=== PATIENT | female | born 1990 | race Caucasian/White ===

== ENCOUNTER → 2020-09-28 11:04 | Outpatient (BNVA) | payer MEDICAID, SELFPAY | PROVIDERS: Family Provider Family Medicine; PCP Family Medicine; Visit Provider Family Medicine | DX: Z13.6 Encounter for screening for cardiovascular disorders (principal); N92.6 Irregular menstruation, unspecified | CPT/HCPCS: 80053; 81025; 84443; 85025 ==

== ENCOUNTER → 2020-09-29 12:07 | Outpatient (BNVA) | payer MEDICAID, SELFPAY | PROVIDERS: Family Provider Family Medicine; PCP Family Medicine; Visit Provider Family Medicine | DX: N92.6 Irregular menstruation, unspecified (principal); Z13.6 Encounter for screening for cardiovascular disorders | CPT/HCPCS: 84436 ==

== ENCOUNTER → 2020-10-18 11:50 | Outpatient (BNVA) | payer MEDICAID, SELFPAY | PROVIDERS: Family Provider Family Medicine; PCP Family Medicine; Visit Provider Family Medicine | DX: N92.6 Irregular menstruation, unspecified (principal) | CPT/HCPCS: 84436 ==

== ENCOUNTER → 2020-10-19 13:20 | Outpatient (BNVA) | payer MEDICAID, SELFPAY | PROVIDERS: Family Provider Family Medicine; PCP Family Medicine; Visit Provider Family Medicine | DX: N92.6 Irregular menstruation, unspecified (principal) | CPT/HCPCS: 84146 ==

== ENCOUNTER 2020-10-25 12:53 | Outpatient (CLI) | payer MEDICAID, SELFPAY ==
--- NOTE | 2020-10-25 13:00 | XR_ITS ---
WS: [id number] Exam: XR chest 2V* [id number] Date/Time of Exam: 10/25/2020 1:03 PM Reason For Exam: unexplained weight loss Comparison 02/17/2014. Findings: The lungs are clear and fully expanded. Costophrenic angles are sharp. No infiltrates. Bronchovascula r relief appears normal. Cardiac silhouette is unremarkable. Bony elements are intact. XR/XR chest 2V* [id number] IMPRESSION: Unremarkable chest radiograph.
== END 2020-10-25 12:54 | disposition home or self-care (01) ==
PROVIDERS: PCP Family Medicine; Visit Provider Family Medicine
DX: R63.4 Abnormal weight loss (principal)
CPT/HCPCS: 71046

== ENCOUNTER 2022-11-08 21:57 | Emergency (ER) | payer MEDICAID, SELFPAY ==
[2022-11-08 22:04] VITALS: BP 109/80; PULSE 99; RESP 16; TEMP 36.6; O2SAT 100; BMI 15.6
[2022-11-08 22:08] VITALS: BP 121/85; PULSE 103; RESP 18; O2SAT 100
--- NOTE | 2022-11-08 22:18 | XRR_ITS ---
PROCEDURE INFORMATION: Exam: XR Chest Exam date and time: 11/08/2022 10:27 PM Age: 31 years old Clinical indication: Pain; Chest pressure; Additional info: Cp TECHNIQUE: Imaging protocol: Radiologic exam of the chest. Views: 1 view. COMPARISON: CR XR chest 2V* [id number] 10/25/2020 1:07 PM FINDINGS: Lungs: Stable hyperaerated lungs consistent with deep inspiratory effort vs reactive airway disease vs severe COPD . Pleural spaces: Unremarkable. No pleural effusion. No pneumothorax. Heart/Mediastinum: Unremarkable. No cardiomegaly. Bones/joints: Unremarkable. XR/XR chest 1V portable [id number] IMPRESSION: Stable hyperaerated lungs consistent with deep inspiratory effort vs reactive airway disease vs severe COPD .
--- NOTE | 2022-11-08 22:20 | ECG_ITS ---
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 Measurements Intervals [place] Rate: 92 P: 84 [place]: 161 QRS: 83 QRSD: 86 T: 71 QT: 359 QTc: 444 Interpretive Statements SINUS RHYTHM MODERATE T-WAVE ABNORMALITY, CONSIDER ANTERIOR ISCHEMIA [-0.1+ mV T-WAVE IN V3/V4] No previous ECG available for comparison Electronically Signed On 11-09-2022 11:58:41 CDT by Miki Clark M.D. [id number]
[2022-11-08] MEDS: LORazepam 2 mg/mL INJ 1 mL 1 MG IVP (22:35)
--- NOTE | 2022-11-08 22:48 | W.ED.SOB ---
HPI - SOB/Dyspnea General: Chief Complaint: Shortness of Breath/Dyspnea Stated Complaint: SOB Time Seen by Provider: 11/08/22 22:04 Source: patient Mode of arrival: ambulatory Limitations: no limitations History of Present Illness: HPI Narrative: 31-year-old female has a history of substance abuse along with alcohol abuse. States that she has had difficulty breathing she states for years she states that it got much worse tonight states she feels like she cannot get a breath and having chest pain she is very anxious here and tearful and appears to be having anxiety attack she denies any fever denies any cough denies any worsening proving factors. Associated symptoms: Reports chest pain; Deny abdominal pain, fever(s), nausea or vomiting Review of Systems Const: Denies: fever(s), chills or body aches Eyes: Denies: blurry vision or eye discomfort ENMT: Denies: throat pain or dental pain Card: Reports: chest pain Resp: Reports: dyspnea GI: Denies: abdominal pain, nausea, vomiting or diarrhea : Denies: dysuria Musc: Denies: neck pain or back pain Skin/Breast: Denies: rash Neuro: Denies: headache(s) PFSH ED PFSH: Medical History Depression PTSD (post-traumatic stress disorder) Surgical History No pertinent past surgical history Family History Other Hypertension Seizure Social History Smoking and tobacco status: current every day smoker cigarettes Packs smoked per day: 1 Alcohol intake: current Alcohol intake frequency: 3 or more drinks per day Alcohol type: beer Substance/Drug Use: current Substance/Drug use frequency: daily Physical Exam Const: COMMON NORMALS: patient oriented x3 GENERAL APPEARANCE: anxious HENMT: COMMON NORMALS: normocephalic and atraumatic HEAD & SCALP: normocephalic and atraumatic Eye: COMMON NORMALS: Equal, round and reactive pupils present and EOMs intact bilaterally PUPIL: Yes Equal, round and reactive pupils present Neck/C-Spine: COMMON NORMALS: full ROM and supple Chest: COMMONS NORMALS: normal inspection of the chest and normal palpation of entire chest wall Resp: COMMON NORMALS: normal respiratory effort, No retractions, No use of accessory muscles and clear to auscultation bilaterally AUSCULTATION: clear to auscultation bilaterally Cardio: COMMON NORMALS: regular rhythm and No murmurs present (Cardio) RATE: tachycardic RHYTHM: regular rhythm GI: COMMON NORMALS: Normal to inspection, nondistended, normoactive bowel sounds present, Soft to palpation, non-tender and no masses PALPATION: Yes Soft to palpation Extremity: COMMON NORMALS: normal to inspection and full ROM Neuro: COMMON NORMALS: patient oriented x3, moves all extremities and no focal motor deficits Psych: COMMON NORMALS: mental status grossly normal, Normal thought process present and cooperative THOUGHT PROCESS: Normal thought process present Skin: COMMON NORMALS: no rashes or lesions noted and no wounds GENERAL SKIN EXAM: no rashes or lesions noted Course Vital Signs: Vital signs: Vital Signs Temperature 97.9 F 11/08/22 22:04 Pulse Rate 109 H 11/08/22 23:08 Respiratory Rate 16 11/08/22 23:08 Blood Pressure 100/81 11/08/22 23:08 Pulse Oximetry 94 11/08/22 23:08 Oxygen Delivery Me thod Room Air 11/08/22 22:08 MDM - SOB/Dyspnea Medical Decision Making Patient presents here with some dyspnea likely anxiety CT does show slight pneumonia her white count is normal she is not hypoxic here she feels improved after Ativan she is intoxicated as well does drink daily we will start her on doxycycline she has no signs of acute coronary event her troponins are negative she is to follow-up with PCP and return if worsening she understands agrees to plan. Medical Records I reviewed the patient's medical records. Lab Data I reviewed the patient's lab results. 11/08/22 22:24 11/08/22 22:24 Labs/Radiology: Radiology Impressions Chest X-Ray 11/08/22 22:18 IMPRESSION: Stable hyperaerated lungs consistent with deep inspiratory effort vs reactive airway disease vs severe COPD . Chest CTA 11/08/22 23:06 IMPRESSION: 1. Moderate to severe hyperaerated lungs consistent with asthma and/or COPD. 2. Mild bilateral airspace disease with ground-glass opacities bilaterally involving the right upper lobe and to lesser extent the left upper lobe most consistent with mild bilateral upper lobe infectious pneumonia versus allergic pneumonia, [id number]-[id number]-barv-left. 3. No pulmonary embolus or aortic dissection. Laboratory Results WBC 8.7 10^3/uL (4.0-10.0) 11/08/22 22: RBC 2.89 10^6/uL (4.1-5.3) L 11/08/22 22: Hgb 11.1 g/dL (11.5-15.3) L 11/08/22 22: Hct 32.0 % (37.0-47.0) L 11/08/22 22: MCV 110.7 fl (81-99) H 11/08/22 22: MCH 38.4 pg (28.0-34.0) H 11/08/22: MCHC 34.7 g/dL (30.0-36.0) 11/08/22: RDW 15.0 % (12.1-15.1) 11/08/22: Plt Count 313 10^3/cmm (130-400) 11/08/22 22: MPV 9.4 fL (7.4-10.4) 11/08/22: Neut % (Auto) 50.7 % 11/08/22: Lymph % (Auto) 38.4 % 11/08/22 22: Gove % (Auto) 10.4 % 11/08/22: Eos % (Auto) 0.0 % 11/08/22: Baso % (Auto) 0.2 % 11/08/22: Neut # (Auto) 4.39 10^3/uL (1.8-7.7) 11/08/22: Lymph # (Auto) 3.3 10^3/uL (0.8-4.8) 11/08/22: Gove # (Auto) 0.9 10^3/uL (0.2-0.9) 11/08/22 22: Eos # (Auto) 0.0 10^3/uL (0.0-0.8) 11/08/22: Baso # (Auto) 0.0 10^3/uL (0.0-0.1) 05/11/23 22:24 Nucleated RBC % (auto) 0 % 11/08/22 22:24 Nucleated RBCs # 0.0 /100WBC 11/08/22 22:24 D-Dimer 1.03 ug/mIFEU (0-0.59) H 11/08/22 22:24 Sodium 136 mmol/L (136-145) 11/08/22 22:24 Potassium 3.3 mmol/L (3.5-5.1) L 11/08/22 22:24 Chloride 93 mmol/L (98-107) L 11/08/22 22:24 Carbon Dioxide 26 mmol/L (22-29) 11/08/22 22:24 Anion Gap 20.3 (5-19) H 11/08/22 22:24 BUN 1 mg/dL (6-20) L 11/08/22 22:24 Creatinine 0.4 mg/dL (0.5-0.9) L 11/08/22 22:24 GFR Calculation 183.8 mL/min (90-130) H 11/08/22 22:24 Glucose 101 mg/dL (65-115) 11/08/22 22:24 Calculated Osmolality 278 mOsm/kg (285-295) L 11/08/22 22:24 Calcium 8.1 mg/dL (8.5-10.5) L 11/08/22 22:24 Total Bilirubin 0.4 mg/dL (0.15-1.2) 11/08/22 22:24 AST 261 U/L (0-32) H 11/08/22 22:24 ALT 53 U/L (0-33) H 11/08/22 22:24 Alkaline Phosphatase 338 U/L (35-105) H 11/08/22 22:24 Troponin T Baseline 6 ng/L (0-10) 11/08/22 22:24 NT-Pro-B Natriuret Pep 44 pg/mL (0-125) 11/08/22 22:24 Total Protein 7.1 g/dL (6.6-8.7) 11/08/22 22:24 Albumin 3.2 g/dL (3.5-5.2) L 11/08/22 22:24 Globulin 3.9 g/dL (1.3-4.6) 05/11/23 22:24 HCG, Qual Negative (Negative) 11/08/22 22:24 Ethyl Alcohol 398 mg/dL (0-10) H* 11/08/22 22:24 EKG Data EKG 1: I personally reviewed and interpreted this EKG as follows: EKG Interpretation Date: 11/08/22 EKG interpretation time: 22:18 Interpretation: nsr hr [address] or t wave abnormalities qrs 86 qtc 408 Discharge Plan Discharge Patient Disposition: Home Clinical Impression: Pneumonia Condition: Stable Prescriptions: New doxycycline hyclate 100 mg tablet 100 mg PO BID 7 Days Qty: 14 0RF Discharge Orders: Discharge ED (Routine); Ordered 11/09/22 Ordered By: Rose Murrieta Referrals: Mallorie Syed DO [Primary Care Provider] - 1-3 days Discharge Diet: Advance as tolerated Discharge Activity: Resume usual activity Patient Instructions: Pneumonia (ED) Coding Level of Care Code ED Agency Sales Development Associate for Thi Chaney
[2022-11-08 22:54] LABS: Basophils % 0.2 %; Hemoglobin 11.1 g/dL (11.5-15.3); Lymphocytes # 3.3 10^3/uL (0.8-4.8); Lymphocytes % 38.4 %; Mean Corpuscular HGB Conc 34.7 g/dL (30.0-36.0); Mean Corpuscular Hemoglobin 38.4 pg (28.0-34.0); Mean Corpuscular Volume 110.7 fl (81-99); Mean Platelet Volume 9.4 fL (7.4-10.4); Monocytes # 0.9 10^3/uL (0.2-0.9); Monocytes % 10.4 %; Neutrophils # 4.39 10^3/uL (1.8-7.7); Neutrophils % 50.7 %; Nucleated Red Blood Cells % 0 %; Platelet Count 313 10^3/cmm (130-400); Red Blood Count 2.89 10^6/uL (4.1-5.3); White Blood Count 8.7 10^3/uL (4.0-10.0)
[2022-11-08 23:03] LABS: D Dimer 1.03 ug/mIFEU (0-0.59)
--- NOTE | 2022-11-08 23:06 | CTR_ITS ---
PROCEDURE INFORMATION: Exam: CTA Chest With Contrast Exam date and time: 11/08/2022 11:35 PM Age: 31 years old Clinical indication: Shortness of breath; Patient HX: Elevated d-dimer; Additional info: SOB TECHNIQUE: Imaging protocol: Computed tomographic angiography of the chest with contrast. 3D rendering (Not supervised by radiologist): MIP and/or 3D reconstructed images were created by the technologist. Radiation optimization: All CT scans at this facility use at least one of these dose optimization techniques: automated exposure control; mA and/or kV adjustment per patient size (includes targeted exams where dose is matched to clinical indication); or iterative reconstruction. Contrast material: OMNI 350; Contrast volume: 45 ml; Contrast route: INTRAVENOUS (IV); REPORTING DATA: Count of CT and Cardiac NM exams in prior 12 months: This patient has received 0 known CTs and 0 known cardiac nuclear medicine studies in the 12 months prior to the current study. COMPARISON: CR (CHEST, ) 11/08/2022 10:27 PM RADIATION DOSE METRICS: Total DLP (mGy-cm): 119.53 FINDINGS: Pulmonary arteries: No pulmonary embolus or aortic dissection. Aorta: See Pulmonary arteries finding. Lungs: Moderate to severe hyperaerated lungs consistent with asthma and or COPD. Mild bilateral airspace disease with ground-glass opacities bilaterally involving the right upper lobe and to lesser extent the left upper lobe most consistent with mild bilateral upper lobe infectious pneumonia versus allergic pneumonia, jstwd-vawiovy-aapq-left. Pleural spaces: Unremarkable. No pneumothorax. No pleural effusion. Heart: Unremarkable. No cardiomegaly. No pericardial effusion. Lymph nodes: Unremarkable. No enlarged lymph nodes. Bones/joints: Unremarkable. No acute fracture. Soft tissues: Unremarkable. Other findings: Examination is limited secondary to motion artifact. CT/CT angio chest PE protcl [id number] IMPRESSION: 1. Moderate to severe hyperaerated lungs consistent with asthma and/or COPD. 2. Mild bilateral airspace disease with ground-glass opacities bilaterally involving the right upper lobe and to lesser extent the left upper lobe most consistent with mild bilateral upper lobe infectious pneumonia versus allergic pneumonia, woeym-deepluc-iiww-left. 3. No pulmonary embolus or aortic dissection.
[2022-11-08 23:08] VITALS: BP 100/81; PULSE 109; RESP 16; O2SAT 94
[2022-11-08 23:08] LABS: Troponin(5th) Baseline 6 ng/L (0-10)
[2022-11-08 23:16] LABS: Alanine Aminotransferase 53 U/L (0-33); Albumin Level 3.2 g/dL (3.5-5.2); Alkaline Phosphatase 338 U/L (35-105); Anion Gap 20.3 (5-19); Aspartate Amino Transferase 261 U/L (0-32); Calcium 8.1 mg/dL (8.5-10.5); Carbon Dioxide 26 mmol/L (22-29); Chloride 93 mmol/L (98-107); Globulin 3.9 g/dL (1.3-4.6); Glomerular Filtration Rate 183.8 mL/min (90-130); Glucose 101 mg/dL (65-115); NT Pro B Type Natriuretic Pept 44 pg/mL (0-125); Potassium 3.3 mmol/L (3.5-5.1); Sodium 136 mmol/L (136-145); Total Bilirubin 0.4 mg/dL (0.15-1.2); Total Protein 7.1 g/dL (6.6-8.7)
[2022-11-08 23:21] LABS: Blood Urea Nitrogen 1 mg/dL (6-20); Osmolality Calculated 278 mOsm/kg (285-295)
[2022-11-08 23:23] LABS: Alcohol Level 398 mg/dL (0-10)
[2022-11-08 23:24] LABS: HCG, Serum Qual Negative (Negative)
[2022-11-08] MEDS: iohexol 350 mg/mL 500 mL Btl (per mL) IV (23:28)
[2022-11-09] MEDS: doxycycline 100 mg Tablet PO (00:16)
[2022-11-09 01:26] VITALS: BP 99/78; PULSE 101; RESP 16; O2SAT 98
== END 2022-11-09 00:23 | disposition home or self-care (01) ==
PROVIDERS: Emergency Provider Emergency Medicine; PCP Family Medicine
DX: J18.9 Pneumonia, unspecified organism (principal); F17.210 Nicotine dependence, cigarettes, uncomplicated
CPT/HCPCS: 71045; 71275; 80053; 80307; 83880; 84484; 84703; 85025; 85378; 93005; 96374; 99285; J2060; Q9967

== ENCOUNTER 2023-01-08 15:54 | Emergency (ER) | payer MEDICAID, SELFPAY ==
[2023-01-08 16:08] VITALS: BP 106/70; PULSE 88; RESP 16; TEMP 36.5; O2SAT 99; BMI 15.6
--- NOTE | 2023-01-08 16:12 | ECG_ITS ---
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 Measurements Intervals [place] Rate: 116 P: 76 SD: 123 QRS: 85 QRSD: 89 T: 55 QT: 314 QTc: 436 Interpretive Statements SINUS TACHYCARDIA MODERATE ST DEPRESSION [0.05+ mV ST DEPRESSION] Compared to ECG 11/08/2022 22:18:26 ST (T wave) deviation now present Sinus rhythm no longer present T-wave abnormality no longer present Possible ischemia no longer present Electronically Signed On 01-08-2023 17:17:35 CDT by Shae Mccall M.D. [id number]
--- NOTE | 2023-01-08 16:29 | XRR_ITS ---
PROCEDURE INFORMATION: Exam: XR Chest Exam date and time: 01/08/2023 4:52 PM Age: 32 years old Clinical indication: Pain; Angina pectoris; Prior surgery; Surgery date: 6+ months; Surgery type: Not specified; Additional info: Chest pain TECHNIQUE: Imaging protocol: Radiologic exam of the chest. Views: 1 view. COMPARISON: CR (CHEST, ) 11/08/2022 10:27 PM FINDINGS: Lungs: The lungs are clear and hyperinflated. Emphysema is not excluded. No peribronchial cuffing. No consolidation. Pleural spaces: Unremarkable. No pleural effusion. No pneumothorax. Heart/Mediastinum: Unremarkable. No cardiomegaly. Bones/joints: Unremarkable. XR/XR chest 1V portable [id number] IMPRESSION: No acute findings.
--- NOTE | 2023-01-08 16:39 | ECG_ITS ---
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 Measurements Intervals [place] Rate: 125 P: 83 ID: 120 QRS: 92 QRSD: 90 T: 24 QT: 336 QTc: 485 Interpretive Statements SINUS TACHYCARDIA BORDERLINE RIGHT AXIS DEVIATION [QRS AXIS > 90] MINIMAL ST DEPRESSION [0.025+ mV ST DEPRESSION] ABNORMAL RHYTHM ECG Compared to ECG 01/08/2023 16:18:36 No significant changes Electronically Signed On 01-08-2023 17:17:29 CDT by Shae Mccall M.D. [id number]
[2023-01-08] MEDS: sodium chloride 0.9% 1,000 ML 999 ML IV (16:46)
[2023-01-08 16:56] LABS: Basophils % 0.1 %; Hematocrit 33.8 % (37.0-47.0); Hemoglobin 11.7 g/dL (11.5-15.3); Lymphocytes # 1.3 10^3/uL (0.8-4.8); Lymphocytes % 10.7 %; Mean Corpuscular HGB Conc 34.6 g/dL (30.0-36.0); Mean Corpuscular Hemoglobin 35.3 pg (28.0-34.0); Mean Corpuscular Volume 102.1 fl (81-99); Mean Platelet Volume 10.4 fL (7.4-10.4); Monocytes % 8.6 %; Neutrophils % 80.3 %; Nucleated Red Blood Cells % 0 %; Platelet Count 232 10^3/cmm (130-400); Red Blood Count 3.31 10^6/uL (4.1-5.3); Red Cell Distribution Width 12.4 % (12.1-15.1)
--- NOTE | 2023-01-08 17:04 | ED_ITS ---
HPI - Chest Pain General: Chief Complaint: Chest Pain Stated Complaint: Sánchez sent for cp, weakness, n/v, everything Time Seen by Provider: 01/08/23 16:26 History of Present Illness: Patient presents to the ER with multiple complaints. All of these complaints have been going on for about a year but have gotten worse in the last 4 days. Patient complains of chest pain, nausea vomiting, weakness, indigestion, cough, fever, shortness of breath, hot flashes, patient says there are no rhyme or reason to any of these symptoms they just come and go. Patient says she has not been able to eat or drink anything for the last 3 to 4 days due to the nausea vomiting. Review of Systems General: Reports: 10 or more systems reviewed and unremarkable except in HPI and below PFSH ED PFSH: Medical History Depression PTSD (post-traumatic stress disorder) Surgical History No pertinent past surgical history Family History Other Hypertension Seizure Social History Smoking and tobacco status: current every day smoker cigarettes Packs smoked per day: 1 Alcohol intake: current Alcohol intake frequency: 3 or more drinks per day Alcohol type: beer Substance/Drug Use: current Substance/Drug use frequency: daily Physical Exam Const: COMMON NORMALS: no acute distress, average body habitus, patient oriented x3, no limitations, healthy appearing, alert and well nourished HENMT: COMMON NORMALS: normocephalic, hearing grossly normal bilaterally, external ears normal, Normal external nose present and moist oral mucous membranes HEAD & SCALP: normocephalic NOSE: Normal external nose present EXTERNAL EAR: Yes external ears normal Eye: COMMON NORMALS: Equal, round and reactive pupils present, EOMs intact bilaterally, conjunctivae normal and no scleral icterus CONJUNCTIVA: Yes conjunctivae normal PUPIL: Yes Equal, round and reactive pupils present Neck/C-Spine: COMMON NORMALS: full ROM, no lymphadenopathy, supple, no meningeal signs, no JVD and Thyroid normal THYROID: Thyroid normal Lymph: LYMPHATIC: no lymphadenopathy noted Chest: COMMONS NORMALS: normal inspection of the chest and normal palpation of entire chest wall Resp: COMMON NORMALS: normal respiratory effort, No retractions, No use of accessory muscles and clear to auscultation bilaterally AUSCULTATION: clear to auscultation bilaterally Cardio: COMMON NORMALS: no JVD, regular rhythm, S1 normal heart sound present, S2 normal heart sound present, No gallops present (Cardio), No clicks present (Cardio), No murmurs present (Cardio) and No rub (Cardio); negative for regular rate (Tachycardia ) RATE: abnormal rate (Tachycardia ) RHYTHM: regular rhythm HEART SOUNDS: S1 normal heart sound present and S2 normal heart sound present GI: COMMON NORMALS: Normal to inspection, nondistended, normoactive bowel sounds present, Soft to palpation, non-tender, No hepatosplenomegaly present and no masses PALPATION: Yes Soft to palpation and Yes No hepatosplenomegaly present : COMMON NORMALS: Yes no CVA tenderness BLADDER/KIDNEY EXAM: Yes no CVA tenderness Back/Pelvis: COMMON NORMALS: no CVA tenderness Neuro: COMMON NORMALS: patient oriented x3 SENSORIUM/ORIENTATION: Yes alert MENINGEAL SIGNS: Yes no meningeal signs Course Vital Signs: Vital signs: Vital Signs Temperature 97.7 F 01/08/23 16:08 Pulse Rate 98 01/08/23 20:14 Respiratory Rate 15 01/08/23 20:14 Blood Pressure 109/79 01/08/23 20:14 Pulse Oximetry 98 01/08/23 20:14 Oxygen Delivery Me thod Room Air 01/08/23 20:14 MDM - Chest Pain Medical Decision Making Patient presents to the ER with a multitude of symptoms including chest pain nausea vomiting weakness indigestion cough fever shortness of breath hot flashes abdominal pain. All of these been going on for over a year but is gotten worse over the last 4 days. Patient was initially tachycardic upon arrival patient was given 1 L of normal saline while waiting for lab work and imaging to come back. Lab work did show a white count of 12,000, sodium of 129, UA which was remarkable for urinary tract infection. Chest x-ray which was benign, abdomen pelvis CT with contrast showed fluid distended gallbladder with mild wall th ickening recommended ultrasound, abdomen ultrasound showed fluid distended gallbladder with sludge and wall thickening suspicious for acute cholecystitis mild ductal dilation of the common bile duct with no intraductal filling defect. These findings was explained to the patient that they all slightly point to the gallbladder as well as her elevated liver enzymes and total bilirubin. Patient was given the option to be admitted inpatient to have an MRCP in the morning and talk with the surgeon about possible cholecystectomy. Patient elected not to do this and elected to go home and follow-up with her PCP in the morning. Patient states she had things to do when people talk to before she could potentially go to surgery. Patient be discharged home and should follow-up with her PCP in the morning to talk about getting an MRCP and or referral to a surgeon. Differential Diagnosis Unlikely acute massive pulmonary embolism, acute respiratory failure, acute myocardial infarction, cardiac arrest or sudden cardiac Medical Records I reviewed the patient's medical records. Lab Data I reviewed the patient's lab results. 01/08/23 16:43 01/08/23 16:43 Radiology Impressions Chest X-Ray 01/08/23 16:29 IMPRESSION: No acute findings. Abdomen/Pelvis CT 01/08/23 17:25 IMPRESSION: 1. Fluid distended gallbladder with mild wall thickening. This could represent acute cholecystitis. Follow-up with ultrasound is recommended. 2. Right middle lobe consolidation is most likely atelectasis. COMMENTS: Consistent with the [employer]'s Incidental Findings Committee white paper (J Am Wilbur Radiol 2018): Any incidental renal lesion less than 1 cm or classified as too small to characterize, or any incidental cystic renal lesion characterized as simple-appearing, is likely benign. No follow-up imaging is recommended for these lesions per consensus recommendations based on imaging criteria. Abdomen Ultrasound 01/08/23 19:09 IMPRESSION: 1. Fluid distended gallbladder with sludge and wall thickening. This is suspicious for acute cholecystitis. 2. Mild dilatation of the common bile duct with no intraductal filling defect visualized. If there is clinical/laboratory evidence for biliary obstruction, follow-up with MRCP would be suggested. Laboratory Results WBC 12.0 10^3/uL (4.0-10.0) H 01/08/23 16:43 RBC 3.31 10^6/uL (4.1-5.3) L 01/08/23 16:43 Hgb 11.7 g/dL (11.5-15.3) 01/08/23 16:43 Hct 33.8 % (37.0-47.0) L 01/08/23 16:43 MCV 102.1 fl (81-99) H 01/08/23 16:43 MCH 35.3 pg (28.0-34.0) H 01/08/23 16:43 MCHC 34.6 g/dL (30.0-36.0) 01/08/23 16:43 RDW 12.4 % (12.1-15.1) 01/08/23 16:43 Plt Count 232 10^3/cmm (130-400) 01/08/23 16:43 MPV 10.4 fL (7.4-10.4) 01/08/23 16:43 Neut % (Auto) 80.3 % 01/08/23 16:43 Lymph % (Auto) 10.7 % 01/08/23 16:43 Nye % (Auto) 8.6 % 01/08/23 16:43 Eos % (Auto) 0.0 % 01/08/23 16:43 Baso % (Auto) 0.1 % 01/08/23 16:43 Neut # (Auto) 9.60 10^3/uL (1.8-7.7) H 01/08/23 16:43 Lymph # (Auto) 1.3 10^3/uL (0.8-4.8) 01/08/23 16:43 Nye # (Auto) 1.0 10^3/uL (0.2-0.9) H 01/08/23 16:43 Eos # (Auto) 0.0 10^3/uL (0.0-0.8) 01/08/23 16:43 Baso # (Auto) 0.0 10^3/uL (0.0-0.1) 01/08/23 16:43 Nucleated RBC % (auto) 0 % 01/08/23 16:43 Nucleated RBCs # 0.0 /100WBC 01/08/23 16:43 Sodium 129 mmol/L (136-145) L 01/08/23 16:43 Potassium 3.6 mmol/L (3.5-5.1) 01/08/23 16:43 Chloride 87 mmol/L (98-107) L 01/08/23 16:43 Carbon Dioxide 26 mmol/L (22-29) 01/08/23 16:43 Anion Gap 19.6 (5-19) H 01/08/23 16:43 BUN 4 mg/dL (6-20) L 01/08/23 16:43 Creatinine 0.4 mg/dL (0.5-0.9) L 01/08/23 16:43 GFR Calculation 182.7 mL/min (90-130) H 01/08/23 16:43 Glucose 127 mg/dL (65-115) H 01/08/23 16:43 Calculated Osmolality 266 mOsm/kg (285-295) L 01/08/23 16:43 Calcium 8.4 mg/dL (8.5-10.5) L 01/08/23 16:43 Magnesium 1.3 mg/dL (1.7-2.3) L 01/08/23 16:43 Total Bilirubin 2.1 mg/dL (0.15-1.2) H 01/08/23 16:43 AST 86 U/L (0-32) H 01/08/23 16:43 ALT 56 U/L (0-33) H 01/08/23 16:43 Alkaline Phosphatase 382 U/L (35-105) H 01/08/23 16:43 Troponin T Baseline 6 ng/L (0-10) 01/08/23 16:43 Troponin T 120 Minute 6.94 ng/L (0-10) 01/08/23 19:20 Delta Troponin T 0.94 ABS# (0-10) 01/08/23 19:20 Total Protein 6.3 g/dL (6.6-8.7) L 01/08/23 16:43 Albumin 2.5 g/dL (3.5-5.2) L 01/08/23 16:43 Globulin 3.8 g/dL (1.3-4.6) 01/08/23 16:43 HCG, Qual Negative (Negative) 01/08/23 16:43 Urine Color Yellow (Yellow) 01/08/23 18:27 Urine Appearance Sl hazy (CLEAR) A 01/08/23 18:27 Urine pH 7 (5-7) 01/08/23 18:27 Ur Specific [place] 1.005 (1.005-1.030) 01/08/23 18:27 Urine Protein Neg (Negative) 01/08/23 18:27 Urine Glucose (UA) Norm (Normal) 01/08/23 18:27 Urine Ketones Negative (Negative) 01/08/23 18:27 Urine Blood Trace (Negative) H 01/08/23 18:27 Urine Nitrate Positive (Negative) H 01/08/23 18:27 Urine Bilirubin Neg (Negative) 01/08/23 18:27 Urine Urobilinogen Norm mg/dL (Negative) 01/08/23 18:27 Ur Leukocyte Esterase 2+ (Negative) H 01/08/23 18:27 Urine RBC 0-4 /hpf (0-2) H 01/08/23 18:27 Urine WBC 25-40 /hpf (0-5) H 01/08/23 18:27 Ur Squamous Epith Cells 5-10 /hpf (0-5) H 01/08/23 18:27 Amorphous Sediment Not Reportable 01/08/23 18:27 Urine Bacteria 4+ /hpf (NONE) H 01/08/23 18:27 Urine Opiates Screen Negative ng/mL (Negative) 01/08/23 18:27 Ur Barbiturates Screen Negative ng/mL (Negative) 01/08/23 18:27 Ur Phencyclidine Scrn Negative ng/mL (Negative) 01/08/23 18:27 Ur Amphetamines Screen Negative ng/mL (Negative) 01/08/23 18:27 U Benzodiazepines Scrn Negative ng/mL (Negative) 01/08/23 18:27 Urine Cocaine Screen Negative ng/mL (Negative) 01/08/23 18:27 U Marijuana (THC) Screen Positive ng/mL (Negative) H 01/08/23 18:27 Ethyl Alcohol < 10 mg/dL (0-10) 01/08/23 16:43 EKG Data EKG 1: I personally reviewed and interpreted this EKG as follows: EKG interpretation date: 01/08/23 EKG interpretation time: 16:18 Prior EKG tracings: not available for review Interpretation: EKG showed sinus tach with a ventricular rate of 116 beats a minute, OH interval 123, QRS 89, QTc of 436, moderate ST depression EKG 2: I personally reviewed and interpreted this EKG as follows: EKG interpretation date: 01/08/23 EKG interpretation time: 18:32 Prior EKG tracings: available for review Interpretation: EKG showed sinus tachycardia with ventricular rate 101 beats a minute, OH interval 128, QRS duration 83, QTc of 435, no ST-T wave changes Discharge Plan Discharge Patient Disposition: Home Clinical Impression: Elevated liver enzymes, Hypomagnesemia Nausea & vomiting Qualifiers: Vomiting type: unspecified Qualified Code(s): R11.2 - Nausea with vomiting, unspecified Urinary tract infection Qualifiers: Urinary tract infection type: acute cystitis Hematuria presence: with hematuria Qualified Code(s): N30.01 - Acute cystitis with hematuria Condition: Stable Prescriptions: New ciprofloxacin HCl 500 mg tablet 500 mg PO Q12H Qty: 14 0RF ondansetron HCl 4 mg tablet 4 mg PO Q8H PRN (Reason: nausea and vomiting) Qty: 14 0RF Discharge Orders: Discharge ED (Routine); Ordered 01/08/23 Ordered By: Saurav Adkins Referrals: Briseida Sánchez PA [Primary Care Provider] - 1-3 days Patient Instructions: Cholecystitis (ED), Acute Nausea and Vomiting (DC), Hypomagnesemia (ED), Urinary Tract Infection - Women Activity Restrictions/Additional Instructions: Please follow-up with your family practice physician in the morning. All of your test tonight show your liver enzymes are elevated and your gallbladder is irritated. They recommended an MRCP for further investigation and following up with a surgeon regarding the results. He had been provided a prescription for nausea medicine and antibiotic for your UTI. Please take your medicine as directed. Coding Level of Care Code ED Safety Clothing And Equipment Developer for Thi Chaney
[2023-01-08 17:15] LABS: Albumin Level 2.5 g/dL (3.5-5.2); Alkaline Phosphatase 382 U/L (35-105); Blood Urea Nitrogen 4 mg/dL (6-20); Calcium 8.4 mg/dL (8.5-10.5); Carbon Dioxide 26 mmol/L (22-29); Chloride 87 mmol/L (98-107); Globulin 3.8 g/dL (1.3-4.6); Glomerular Filtration Rate 182.7 mL/min (90-130); Glucose 127 mg/dL (65-115); Magnesium 1.3 mg/dL (1.7-2.3); Osmolality Calculated 266 mOsm/kg (285-295); Sodium 129 mmol/L (136-145); Total Bilirubin 2.1 mg/dL (0.15-1.2); Total Protein 6.3 g/dL (6.6-8.7)
[2023-01-08 17:21] LABS: Alanine Aminotransferase 56 U/L (0-33); Alcohol Level < 10 mg/dL (0-10); Anion Gap 19.6 (5-19); Aspartate Amino Transferase 86 U/L (0-32); Potassium 3.6 mmol/L (3.5-5.1); Troponin(5th) Baseline 6 ng/L (0-10)
--- NOTE | 2023-01-08 17:25 | CTR_ITS ---
PROCEDURE INFORMATION: Exam: CT Abdomen And Pelvis With Contrast Exam date and time: 01/08/2023 6:44 PM Age: 32 years old Clinical indication: Nausea and vomiting; Additional info: Elevated bilirubin, n/v/d TECHNIQUE: Imaging protocol: Computed tomography of the abdomen and pelvis with contrast. Radiation optimization: All CT scans at this facility use at least one of these dose optimization techniques: automated exposure control; mA and/or kV adjustment per patient size (includes targeted exams where dose is matched to clinical indication); or iterative reconstruction. Contrast material: OMNI 530; Contrast volume: 100 ml; Contrast route: INTRAVENOUS (IV); REPORTING DATA: Count of CT and Cardiac NM exams in prior 12 months: This patient has received [address] and 0 known cardiac nuclear medicine studies in the 12 months prior to the current study. COMPARISON: CT angio chest PE protcl [id number] 11/08/2022 11:35 PM RADIATION DOSE METRICS: Total DLP (mGy-cm): 290.51 FINDINGS: Lungs: Consolidation in the anterior right middle lobe. Liver: Normal. No mass. Gallbladder and bile ducts: Fluid distended gallbladder with mild wall enhancement and mild thickening. No visible stones. Slight dilatation of the extrahepatic bile ducts. No visible intraductal filling defect. Pancreas: Normal. No ductal dilation. Spleen: Normal. No splenomegaly. Adrenal glands: Normal. No mass. Kidneys and ureters: Hypodense lesions in the right kidney are too small to characterize but are most likely cysts. No follow-up imaging is recommended. No calculus or hydronephrosis. Stomach and bowel: Unremarkable. No obstruction. No mucosal thickening. Appendix: The appendix is visualized and is normal. Intraperitoneal space: Unremarkable. No free air. No significant fluid collection. Vasculature: Unremarkable. No abdominal aortic aneurysm. Lymph nodes: Unremarkable. No enlarged lymph nodes. Urinary bladder: Unremarkable as visualized. Reproductive: Unremarkable as visualized. Bones/joints: Unremarkable. No acute fracture. Soft tissues: Small fat containing umbilical hernia. CT/CT abdomen pelvis w con* [id number] IMPRESSION: 1. Fluid distended gallbladder with mild wall thickening. This could represent acute cholecystitis. Follow-up with ultrasound is recommended. 2. Right middle lobe consolidation is most likely atelectasis. COMMENTS: Consistent with the [place] [employer]'s Incidental Findings Committee white paper (J Am Wilbur Radiol 2018): Any incidental renal lesion less than 1 cm or classified as too small to characterize, or any incidental cystic renal lesion characterized as simple-appearing, is likely benign. No follow-up imaging is recommended for these lesions per consensus recommendations based on imaging criteria.
[2023-01-08] MEDS: ketorolac 30 mg/mL INJ IVP (17:28)
[2023-01-08 18:04] LABS: HCG, Serum Qual Negative (Negative)
--- NOTE | 2023-01-08 18:32 | ECG_ITS ---
[facility] Test Date: 2023-01-08 Pat Name: Lou Marks Department: Room: Gender: Female Youth Agent: : [id number] Requested By: Saurav Adkins Order Number: [id number] Crystal MD: Shirley Gomes M.D. Measurements Intervals [place] Rate: 101 P: 73 PA: 128 QRS: 80 QRSD: 83 T: 57 QT: 377 QTc: 490 Interpretive Statements SINUS TACHYCARDIA ABNORMAL RHYTHM ECG Compared to ECG 01/08/2023 16:39:27 ST (T wave) deviation no longer present Electronically Signed On 01-09-2023 17:01:18 CDT by Shirley Gomes M.D. [id number]
[2023-01-08] MEDS: iohexol 350 mg/mL 500 mL Btl (per mL) IV (18:56)
[2023-01-08 19:00] LABS: Urine Appearance SL Hazy (CLEAR); Urine Color Yellow (Yellow); pH Urine 7 (5-7)
[2023-01-08 19:01] LABS: Add Urine Microscopic? YES; Bilirubin Urine Neg (Negative); Blood Urine Trace (Negative); Glucose Urine UA Norm (Normal); Ketones Urine Negative (Negative); Leukocyte Esterase Urine 2+ (Negative); Nitrate Urine Positive (Negative); Protein Urine Neg (Negative); Specific Gravity, Urine 1.005 (1.005-1.030); Urobilinogen Urine Norm (Negative)
[2023-01-08 19:02] LABS: Bacteria Urine 4+ /hpf; RBC Urine 0-4 /hpf (0-2); WBC Urine 25-40 /hpf (0-5)
[2023-01-08 19:03] LABS: Add Urine Culture? Yes
[2023-01-08 19:06] LABS: Amphetamines Screen Urine Negative (Negative); Barbiturates Screen Urine Negative (Negative); Benzodiazepines Screen Urine Negative (Negative); Cocaine Screen Urine Negative (Negative); Opiate Screen Urine Negative (Negative); PCP Screen Urine Negative (Negative); THC Screen Urine Positive (Negative)
--- NOTE | 2023-01-08 19:09 | USR_ITS ---
PROCEDURE INFORMATION: Exam: US Abdomen, Limited; Right Upper Quadrant Exam date and time: 01/08/2023 7:30 PM Age: 32 years old Clinical indication: Nausea and vomiting; Patient HX: N+v for 1 year, becoming worse. Elevated tbili = 2.1, elevated ast = 86, elevated alt = 56, elevated alkphos = 86, negative hcg; Additional info: Abnormal gb on CT, n/v/d TECHNIQUE: Imaging protocol: Real time ultrasound of the abdomen with image documentation. Limited exam focused on the right upper quadrant. COMPARISON: CT abdomen pelvis w con* [id number] 01/08/2023 6:44 PM FINDINGS: Liver: Enlarged liver measuring 17.7 cm with mild diffusely increased echogenicity. Gallbladder: Fluid distended gallbladder measuring 11.8 cm in length. Layering sludge. No visible stones. Gallbladder wall thickness measures 4.8 mm. Positive Malave's sign. Biliary ducts: Dilatation of the common bile duct measuring up to 11 mm. No intraductal filling defect visualized. Pancreas: Visualized pancreas is unremarkable. Right kidney: Normal. No mass. No hydronephrosis. Intraperitoneal space: No ascites. US/US abdomen limited [id number] IMPRESSION: 1. Fluid distended gallbladder with sludge and wall thickening. This is suspicious for acute cholecystitis. 2. Mild dilatation of the common bile duct with no intraductal filling defect visualized. If there is clinical/laboratory evidence for biliary obstruction, follow-up with MRCP would be suggested.
[2023-01-08 19:31] VITALS: BP 117/85
[2023-01-08] MEDS: ciprofloxacin 500 mg Tablet PO (19:32)
[2023-01-08 19:54] LABS: Troponin 5 2HR 6.94 ng/L (0-10)
[2023-01-08 19:59] LABS: Troponin 5 2HR Delta 0.94 ABS# (0-10)
[2023-01-08 20:14] VITALS: BP 109/79; PULSE 98; RESP 15; O2SAT 98
[2023-01-08 21:12] VITALS: BP 114/82; PULSE 103; RESP 20; O2SAT 99
[2023-01-08 21:17] VITALS: BP 114/82; PULSE 120; RESP 14; O2SAT 99
== END 2023-01-08 21:19 | disposition home or self-care (01) ==
PROVIDERS: Emergency Provider Emergency Medicine; PCP Physician Assistant
DX: N30.01 Acute cystitis with hematuria (principal); R11.2 Nausea with vomiting, unspecified; R79.89 Other specified abnormal findings of blood chemistry; E83.42 Hypomagnesemia; F17.210 Nicotine dependence, cigarettes, uncomplicated
CPT/HCPCS: 36415; 71045; 74177; 76705; 80053; 80306; 80307; 81001; 83735; 84484; 84703; 85025; 87077; 87086; 87186; 93005; 96374; 96375; 99285; J1885; J3475; J7030; Q9967

== ENCOUNTER 2023-03-20 17:27 | Emergency (ER) | payer MEDICAID, SELFPAY ==
[2023-03-20 17:30] VITALS: BP 100/72; PULSE 112; RESP 17; TEMP 36.4; O2SAT 98; BMI 16.6
--- NOTE | 2023-03-20 18:36 | ED_ITS ---
HPI - Recheck/Abnormal Lab/Rx General: Chief Complaint: Recheck/Abnormal Lab/Rx Stated Complaint: riya sent her over potassium is low Time Seen by Provider: 03/20/23 18:17 History of Present Illness: Patient was sent over by her PCP for abnormal labs. Patient states her potassium is low. Patient also states she been falling getting weak she then knows her gallbladder is bad this been going on for about the last 6 months getting worse. She states she has been here multiple times and had ultrasounds and CT scans and no one is ever sent her to have it taken out. Patient does states she drinks alcohol and has had a little bit to drink today patient states her feet from the knees down are weak and tingly like they are going to sleep. Is been getting worse for the last couple weeks. Review of Systems General: Reports: 10 or more systems reviewed and unremarkable except in HPI and below PFSH ED PFSH: Medical History Depression PTSD (post-traumatic stress disorder) Surgical History No pertinent past surgical history Family History Other Hypertension Seizure Social History Smoking and tobacco status: current every day smoker cigarettes Packs smoked per day: 1 Alcohol intake: current Alcohol intake frequency: 3 or more drinks per day Alcohol type: beer Substance/Drug Use: current Substance/Drug use frequency: daily Physical Exam Const: COMMON NORMALS: no acute distress, average body habitus, patient oriented x3, no limitations, healthy appearing, alert and well nourished HENMT: COMMON NORMALS: normocephalic, atraumatic, hearing grossly normal bilaterally, external ears normal, Normal external nose present and moist oral mucous membranes HEAD & SCALP: normocephalic and atraumatic NOSE: Normal external nose present EXTERNAL EAR: Yes external ears normal Eye: COMMON NORMALS: Equal, round and reactive pupils present, EOMs intact bilaterally, conjunctivae normal and no scleral icterus CONJUNCTIVA: Yes conjunctivae normal PUPIL: Yes Equal, round and reactive pupils present Neck/C-Spine: COMMON NORMALS: full ROM, no lymphadenopathy, supple, no meningeal signs, no JVD and Thyroid normal THYROID: Thyroid normal Chest: COMMONS NORMALS: normal inspection of the chest and normal palpation of entire chest wall Resp: COMMON NORMALS: normal respiratory effort, No retractions, No use of accessory muscles and clear to auscultation bilaterally AUSCULTATION: clear to auscultation bilaterally Cardio: COMMON NORMALS: no JVD, regular rate, regular rhythm, S1 normal heart sound present, S2 normal heart sound present, No gallops present (Cardio), No clicks present (Cardio), No murmurs present (Cardio) and No rub (Cardio) RATE: regular rate RHYTHM: regular rhythm HEART SOUNDS: S1 normal heart sound present and S2 normal heart sound present GI: COMMON NORMALS: Normal to inspection, nondistended, normoactive bowel sounds present, Soft to palpation, non-tender, No hepatosplenomegaly present and no masses PALPATION: Yes Soft to palpation and Yes No hepatosplenomegaly present : COMMON NORMALS: Yes no CVA tenderness BLADDER/KIDNEY EXAM: Yes no CVA tenderness Back/Pelvis: COMMON NORMALS: no CVA tenderness Neuro: COMMON NORMALS: patient oriented x3 SENSORIUM/ORIENTATION: Yes alert MENINGEAL SIGNS: Yes no meningeal signs Course Vital Signs: Vital signs: Vital Signs Temperature 97.5 F L 03/20/23 17:30 Pulse Rate 82 03/20/23 18:45 Respiratory Rate 31 H 03/20/23 18:45 Blood Pressure 129/86 03/20/23 18:45 Pulse Oximetry 100 03/20/23 18:45 Oxygen Delivery Me thod Room Air 03/20/23 17:30 MDM - Recheck/Abnormal Lab/Rx Medical Decision Making Patient presents to the ER for abnormal lab values low potassium. Patient also states she has nausea vomiting gallbladder issues and leg pain. Patient had lab work done which revealed her potassium was very low at 1.9. Patient be given 20 mg equivalents of potassium IV 40 mEq of potassium orally and then upon discharge another 40 mEq potassium orally and a prescription to take 40 mEq daily for the next 7 days and then patient is to follow-up and have her potassium rechecked. Differential Diagnosis Unlikely encounter for medication refill, encounter for wound recheck, encounter for recheck of burn, encounter for removal of sutures or warfarin-induced co agulopathy Medical Records I reviewed the patient's medical records. Lab Data I reviewed the patient's lab results. 03/20/23 18:35 03/20/23 20:18 Laboratory Results WBC 7.27 10^3/uL (3.29-11.43) 03/20/23 18:35 RBC 3.54 10^6/uL (3.85-5.65) L 03/20/23 18:35 Hgb 12.20 g/dL (11.27-16.99) 03/20/23 18:35 Hct 36.9 % (36-47) 03/20/23 18:35 MCV 104.2 fl (85-98) H 03/20/23 18:35 MCH 34.5 pg (27-33) H 03/20/23 18:35 MCHC 33.1 g/dL (30-55) 03/20/23 18:35 RDW 13.9 % (12.1-15.1) 03/20/23 18:35 Plt Count 341 10^3/cmm (157-399) 03/20/23 18:35 MPV 9.2 fL (7.4-10.4) 03/20/23 18:35 Neut % (Auto) 66.4 % 03/20/23 18:35 Lymph % (Auto) 24.1 % 03/20/23 18:35 [place] % (Auto) 8.9 % 03/20/23 18:35 Eos % (Auto) 0.0 % 03/20/23 18:35 Baso % (Auto) 0.3 % 03/20/23 18:35 Neut # (Auto) 4.83 10^3/uL (1.8-7.7) 03/20/23 18:35 Lymph # (Auto) 1.8 10^3/uL (0.8-4.8) 03/20/23 18:35 [place] # (Auto) 0.7 10^3/uL (0.2-0.9) 03/20/23 18:35 Eos # (Auto) 0.0 10^3/uL (0.0-0.8) 03/20/23 18:35 Baso # (Auto) 0.0 10^3/uL (0.0-0.1) 03/20/23 18:35 Nucleated RBC % (auto) 0 % 03/20/23 18:35 Nucleated RBCs # 0.0 /100WBC 03/20/23 18:35 Sodium 132 mmol/L (136-145) L 03/20/23 20:18 Potassium 1.9 mmol/L (3.5-5.1) L* 03/20/23 20:18 Chloride 86 mmol/L (98-107) L 03/20/23 20:18 Carbon Dioxide 25 mmol/L (22-29) 03/20/23 20:18 Anion Gap 22.9 (5-19) H 03/20/23 20:18 BUN 1 mg/dL (6-20) L 03/20/23 20:18 Creatinine 0.4 mg/dL (0.5-0.9) L 03/20/23 20:18 GFR Calculation 182.7 mL/min (90-130) H 03/20/23 20:18 Glucose 94 mg/dL (65-115) 03/20/23 20:18 Calculated Osmolality 270 mOsm/kg (285-295) L 03/20/23 20:18 Calcium 7.4 mg/dL (8.5-10.5) L 03/20/23 20:18 Magnesium 1.7 mg/dL (1.7-2.3) 03/20/23 20:18 Total Bilirubin 0.6 mg/dL (0.15-1.2) 03/20/23 20:18 AST 54 U/L (0-32) H 03/20/23 20:18 ALT 22 U/L (0-33) 03/20/23 20:18 Alkaline Phosphatase 149 U/L (35-105) H 03/20/23 20:18 Total Protein 4.8 g/dL (6.6-8.7) L 03/20/23 20:18 Albumin 1.9 g/dL (3.5-5.2) L 03/20/23 20:18 Globulin 2.9 g/dL (1.3-4.6) 03/20/23 20:18 Lipase 17 U/L (13-60) 03/20/23 20:18 TSH 0.43 uIU/mL (0.27-4.20) 03/20/23 20:18 HCG, Qual Negative (Negative) 03/20/23 18:35 Urine Color Yellow (Yellow) 03/20/23 19:22 Urine Appearance Sl hazy (CLEAR) A 03/20/23 19:22 Urine pH 6.5 (5-7) 03/20/23 19:22 Ur Specific Elizabeth 1.005 (1.005-1.030) 03/20/23 19:22 Urine Protein Neg (Negative) 03/20/23 19:22 Urine Glucose (UA) Norm (Normal) 03/20/23 19:22 Urine Ketones Negative (Negative) 03/20/23 19:22 Urine Blood Neg (Negative) 03/20/23 19:22 Urine Nitrate Negative (Negative) 03/20/23 19:22 Urine Bilirubin Neg (Negative) 03/20/23 19:22 Urine Urobilinogen Neg mg/dL (Negative) 03/20/23 19:22 Ur Leukocyte Esterase Trace (Negative) H 03/20/23 19:22 Urine RBC None /hpf (0-2) 03/20/23 19:22 Urine WBC 0-4 /hpf (0-5) H 03/20/23 19:22 Ur Squamous Epith Cells 15-25 /hpf (0-5) H 03/20/23 19:22 Amorphous Sediment Not Reportable 03/20/23 19:22 Urine Bacteria Trace /hpf (NONE) 03/20/23 19:22 Urine Opiates Screen Negative ng/mL (Negative) 03/20/23 19:22 Ur Barbiturates Screen Negative ng/mL (Negative) 03/20/23 19:22 Ur Phencyclidine Scrn Negative ng/mL (Negative) 03/20/23 19:22 Ur Amphetamines Screen Negative ng/mL (Negative) 03/20/23 19:22 U Benzodiazepines Scrn Negative ng/mL (Negative) 03/20/23 19:22 Urine Cocaine Screen Negative ng/mL (Negative) 03/20/23 19:22 U Marijuana (THC) Screen Positive ng/mL (Negative) H 03/20/23 19:22 Ethyl Alcohol 100 mg/dL (0-10) H 03/20/23 20:18 All radiology interpretation(s) finalized by discharge EKG Data EKG 1: I personally reviewed and interpreted this EKG as follows: EKG interpretation date: 03/20/23 EKG interpretation time: 18:37 Prior EKG tracings: not available for review Interpretation: EKG showed ventricular rate 86 bpm, KS interval 147, QRS duration 99, QTc of 417, sinus rhythm, nonspecific T wave abnormality EKG 2: I personally reviewed and interpreted this EKG as follows: EKG interpretation date: 03/20/23 EKG interpretation time: 20:02 Prior EKG tracings: available for review Interpretation: EKG showed ventricular rate 97 beats a minute, KS interval 136, QRS duration 85, QTc of 415, sinus rhythm, negative T waves in 1 to aVL aVF V5 and V6 Discharge Plan Discharge Patient Disposition: Home Clinical Impression: Acute hypokalemia Condition: Stable Prescriptions: New potassium chloride 20 mEq tablet extended release 20 meq PO BID Qty: 14 0RF No Action ciprofloxacin HCl 500 mg tablet 500 mg PO Q12H Qty: 14 0RF ondansetron HCl 4 mg tablet 4 mg PO Q8H PRN (Reason: nausea and vomiting) Qty: 14 0RF Discharge Orders: Discharge ED (Routine); Ordered 03/20/23 Ordered By: Saurav Adkins Referrals: Briseida Sánchez PA [Primary Care Provider] - 1 week Patient Instructions: Hypokalemia (ED) Activity Restrictions/Additional Instructions: Please take all medicine as prescribed. Please follow-up with your family practice physician in approximately 7 days for further evaluation and retesting of your potassium. 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
[2023-03-20 18:45] VITALS: BP 129/86; PULSE 82; RESP 31; O2SAT 100
[2023-03-20 18:50] LABS: Basophils % 0.3 %; Hematocrit 36.9 % (36-47); Lymphocytes # 1.8 10^3/uL (0.8-4.8); Lymphocytes % 24.1 %; Mean Corpuscular HGB Conc 33.1 g/dL (30-55); Mean Corpuscular Hemoglobin 34.5 pg (27-33); Mean Corpuscular Volume 104.2 fl (85-98); Mean Platelet Volume 9.2 fL (7.4-10.4); Monocytes # 0.7 10^3/uL (0.2-0.9); Monocytes % 8.9 %; Neutrophils # 4.83 10^3/uL (1.8-7.7); Neutrophils % 66.4 %; Nucleated Red Blood Cells % 0 %; Platelet Count 341 10^3/cmm (157-399); Red Blood Count 3.54 10^6/uL (3.85-5.65); Red Cell Distribution Width 13.9 % (12.1-15.1); White Blood Count 7.27 10^3/uL (3.29-11.43)
[2023-03-20 19:03] LABS: HCG, Serum Qual Negative (Negative)
--- NOTE | 2023-03-20 19:42 | ECG_ITS ---
[facility] Test Date: 2023-03-20 Pat Name: Lou Marks Department: Room: Gender: Female Skilled Labor: : 1990 Requested By: Saurav Adkins Order Number: [id number] Crystal MD: Shirley Gomes M.D. Measurements Intervals [place] Rate: 97 P: 13 CT: 136 QRS: 82 QRSD: 85 T: 18 QT: 360 QTc: 459 Interpretive Statements SINUS RHYTHM MODERATE T-WAVE ABNORMALITY, CONSIDER LATERAL ISCHEMIA [-0.1+ mV T-WAVE IN I/aVL/V5/V6] MODERATE T-WAVE ABNORMALITY, CONSIDER INFERIOR ISCHEMIA [-0.1+ mV T-WAVE IN II/aVF] Compared to ECG 01/08/2023 18:32:29 T-wave abnormality now present Possible ischemia now present Sinus tachycardia no longer present Electronically Signed On 03-21-2023 8:01:07 CDT by Shirley Gomes M.D. [id number]
[2023-03-20 19:56] LABS: Amphetamines Screen Urine Negative (Negative); Barbiturates Screen Urine Negative (Negative); Benzodiazepines Screen Urine Negative (Negative); Cocaine Screen Urine Negative (Negative); Opiate Screen Urine Negative (Negative); PCP Screen Urine Negative (Negative); THC Screen Urine Positive (Negative)
[2023-03-20 20:13] LABS: Add Urine Culture? No; Add Urine Microscopic? YES; Bacteria Urine TRACE /hpf; Bilirubin Urine Neg (Negative); Blood Urine Neg (Negative); Glucose Urine UA Norm (Normal); Ketones Urine Negative (Negative); Leukocyte Esterase Urine Trace (Negative); Nitrate Urine Negative (Negative); Protein Urine Neg (Negative); Specific Gravity, Urine 1.005 (1.005-1.030); Squamous Epithelial Cell Urine 15-25 /hpf (0-5); Urine Appearance SL Hazy (CLEAR); Urine Color Yellow (Yellow); Urobilinogen Urine Neg (Negative); WBC Urine 0-4 /hpf (0-5); pH Urine 6.5 (5-7)
[2023-03-20 20:51] LABS: Alanine Aminotransferase 22 U/L (0-33); Albumin Level 1.9 g/dL (3.5-5.2); Alcohol Level 100 mg/dL (0-10); Alkaline Phosphatase 149 U/L (35-105); Anion Gap 22.9 (5-19); Aspartate Amino Transferase 54 U/L (0-32); Calcium 7.4 mg/dL (8.5-10.5); Carbon Dioxide 25 mmol/L (22-29); Chloride 86 mmol/L (98-107); Globulin 2.9 g/dL (1.3-4.6); Glomerular Filtration Rate 182.7 mL/min (90-130); Glucose 94 mg/dL (65-115); Lipase 17 U/L (13-60); Magnesium 1.7 mg/dL (1.7-2.3); Sodium 132 mmol/L (136-145); Thyroid Stimulating Hormone 0.43 uIU/mL (0.27-4.20); Total Bilirubin 0.6 mg/dL (0.15-1.2); Total Protein 4.8 g/dL (6.6-8.7)
[2023-03-20 20:56] LABS: Blood Urea Nitrogen 1 mg/dL (6-20); Osmolality Calculated 270 mOsm/kg (285-295)
[2023-03-20 20:58] LABS: Potassium 1.9 mmol/L (3.5-5.1)
[2023-03-20] MEDS: potassium chloride ER 20 mEq Tablet 40 MEQ PO (21:27)
[2023-03-20] MEDS: ketorolac 30 mg/mL INJ IVP (21:27)
[2023-03-20] MEDS: lidocaine 1% 5 ML in potassium chloride premix 100 ML 52.5 ML IV (21:32)
[2023-03-20] MEDS: sodium chloride 0.9% 1,000 ML 999 ML IV ×2 (21:43→22:46)
[2023-03-20 22:46] VITALS: BP 104/69; PULSE 107; RESP 16; O2SAT 97
[2023-03-20 23:59] VITALS: BP 104/69; PULSE 107; RESP 16; TEMP 36.4; O2SAT 97
== END 2023-03-21 | disposition home or self-care (01) ==
PROVIDERS: Emergency Medicine; Emergency Provider Emergency Medicine; PCP Physician Assistant
DX: E87.6 Hypokalemia (principal); F17.210 Nicotine dependence, cigarettes, uncomplicated
CPT/HCPCS: 80053; 80306; 80307; 81001; 83690; 83735; 84443; 84703; 85025; 93005; 96361; 96365; 96366; 96375; 99284; J1885; J3480; J7030

== ENCOUNTER 2023-03-29 13:33 | Inpatient (IN) | payer SELFPAY ==
[2023-03-29] VITALS (38 sets, daily range): BP systolic 103–183; BP diastolic 69–106; PULSE 66–141; RESP 17–36; TEMP 36.7; O2SAT 90–100; BMI 19.5
--- NOTE | 2023-03-29 13:43 | ECG_ITS ---
[facility] Test Date: 2023-03-29 Pat Name: Lou Marks Department: Room: Gender: Female [employer] Teacher: : 1990 Requested By: Reilly Donahue Order Number: [id number] Crystal MD: Miki Clark M.D. Measurements Intervals [place] Rate: 129 P: 74 AR: 137 QRS: 74 QRSD: 73 T: -10 QT: 334 QTc: 489 Interpretive Statements SINUS TACHYCARDIA NONSPECIFIC T-WAVE ABNORMALITY Compared to ECG 03/20/2023 20:02:20 Sinus rhythm no longer present Possible ischemia no longer present T-wave abnormality still present Electronically Signed On 03-30-2023 9:39:21 CDT by Miki Clark M.D. [id number] f
[2023-03-29 13:54] LABS: Basophils % 0.2 %; Hematocrit 31.2 % (36-47); Lymphocytes # 1.5 10^3/uL (0.8-4.8); Lymphocytes % 17.5 %; Mean Corpuscular HGB Conc 33.3 g/dL (30-55); Mean Corpuscular Hemoglobin 34.6 pg (27-33); Mean Corpuscular Volume 103.7 fl (85-98); Mean Platelet Volume 8.7 fL (7.4-10.4); Monocytes # 0.9 10^3/uL (0.2-0.9); Monocytes % 10.8 %; Neutrophils # 6.03 10^3/uL (1.8-7.7); Neutrophils % 70.8 %; Nucleated Red Blood Cells % 0.2 %; Platelet Count 244 10^3/cmm (157-399); Red Blood Count 3.01 10^6/uL (3.85-5.65); Red Cell Distribution Width 14.6 % (12.1-15.1); White Blood Count 8.52 10^3/uL (3.29-11.43)
[2023-03-29] MEDS: sodium chloride 0.9% 1,000 ML 999 ML IV ×2 (14:00→15:25)
[2023-03-29 14:02] LABS: INR 1.08 (0.8-1.2)
[2023-03-29 14:03] LABS: Partial Thromboplastin Time 24.7 SECONDS (23.9-36.7)
--- NOTE | 2023-03-29 14:14 | ECG_ITS ---
[facility] Test Date: 2023-03-29 Pat Name: Lou Marks Department: Room: Gender: Female Unit Assistant: : 1990 Requested By: Reilly Donahue Order Number: [id number] Crystal MD: Miki Clark M.D. Measurements Intervals [place] Rate: 124 P: 75 [place]: 135 QRS: 80 QRSD: 78 T: 14 QT: 336 QTc: 483 Interpretive Statements SINUS TACHYCARDIA NONSPECIFIC T-WAVE ABNORMALITY Compared to ECG 03/29/2023 13:39:44 No significant changes Electronically Signed On 03-30-2023 9:43:34 CDT by Miki Clark M.D. [email or web address]/[id number] f
[2023-03-29 14:23] LABS: Alanine Aminotransferase 18 U/L (0-33); Albumin Level 2.2 g/dL (3.5-5.2); Alcohol Level 43 mg/dL (0-10); Alkaline Phosphatase 181 U/L (35-105); Anion Gap 26.8 (5-19); Aspartate Amino Transferase 47 U/L (0-32); Blood Urea Nitrogen 2 mg/dL (6-20); Calcium 7.6 mg/dL (8.5-10.5); Carbon Dioxide 19 mmol/L (22-29); Chloride 88 mmol/L (98-107); Glomerular Filtration Rate 95.8 mL/min (90-130); Glucose 214 mg/dL (65-115); Osmolality Calculated 275 mOsm/kg (285-295); Sodium 131 mmol/L (136-145); Thyroid Stimulating Hormone 0.59 uIU/mL (0.27-4.20); Total Bilirubin 1.2 mg/dL (0.15-1.2); Total Protein 5.2 g/dL (6.6-8.7)
--- NOTE | 2023-03-29 14:24 | W.ED.WEAKNES ---
HPI - Weakness General: Chief complaint: Weakness Stated complaint: fall, weakness Time Seen by Provider: 03/29/23 13:38 Source: patient Mode of arrival: EMS History of Present Illness: 32-year-old female presents emergency room with complaints of generalized weakness. She has been here 3 times in the last few weeks with similar complaints states her legs just feel weak she tells me she was told she had a DVT she had an ultrasound done at [facility] although there is nothing listed in the chart. [facility] usually sends her ultrasound to be read in our radiology department automatically sank to our system even when done as an outpatient. There is no venous duplex present. She is not on any anticoagulants. She does drink alcohol regularly admits to having been drinking this morning. She has bruising on her extremities from several falls and previous blood draws at home. She has had severe hypokalemia earlier this month her potassium is down to 1.9. She is reporting some palpitations today as well and when she arrives here she is in a sinus tachycardia shortly after arrival while we are waiting on labs she had a short run of V. tach of about 15-20 beats that was self terminating. MD Complaint: generalized weakness Onset (ago): week(s) Duration: intermittent Location: LLE and RLE Migration: none Severity: mild Severity scale (1-10): 1 Quality: tingling Relieving factors: none Exacerbating factors: none Associated symptoms: Denies chest pain, chills, confusion, melena, decreased appetite, diaphoresis, dysuria, easy bruising, fever(s), headache(s), myalgias, nausea, rash, short of breath, syncope or vomiting Review of Systems Const: Denies: fever(s), chills, fatigue, malaise or diaphoresis ENMT: Denies: throat pain, ear or mastoid pain, nasal discharge or nasal congestion Card: Reports: palpitations, irregular heart rhythm and swelling of feet/ankles; Denies: chest pain, edema or syncope Resp: Denies: dyspnea, productive cough or non-productive cough GI: Denies: abdominal pain, nausea, vomiting or melena : Denies: flank pain, dysuria, urinary frequency or urinary urgency Musc: Denies: neck pain or back pain Skin/Breast: Denies: rash or pruritus Neuro: Denies: headache(s) or confusion Jason/Lymph: Denies: easy bruising PFSH ED PFSH: Medical History Depression PTSD (post-traumatic stress disorder) Surgical History No pertinent past surgical history Family History Other Hypertension Seizure Social History Smoking and tobacco status: current every day smoker cigarettes Packs smoked per day: 1 Alcohol intake: current Alcohol intake frequency: 3 or more drinks per day Alcohol type: beer Substance/Drug Use: current Substance/Drug use frequency: daily Physical Exam Const: GENERAL APPEARANCE: cooperative and comfortable ORIENTATION/CONSCIOUSNESS: Yes awake, Yes oriented to person, Yes oriented to place and Yes oriented to time HENMT: COMMON NORMALS: normocephalic, atraumatic and hearing grossly normal bilaterally HEAD & SCALP: normocephalic and atraumatic Resp: COMMON NORMALS: normal respiratory effort, No retractions, No use of accessory muscles and clear to auscultation bilaterally AUSCULTATION: clear to auscultation bilaterally Cardio: COMMON NORMALS: regular rhythm and No murmurs present (Cardio) RATE: tachycardic RHYTHM: regular rhythm GI: COMMON NORMALS: Soft to palpation and No hepatosplenomegaly present AUSCULTATION: Yes normoactive bowel sounds PALPATION: Yes Soft to palpation, No Tenderness to palpation present (GI), No Guarding due to palpation present (GI) and Yes No hepatosplenomegaly present Extremity: COMMON NORMALS: normal to inspection, capillary refill normal, no clubbing, cyanosis or edema, no calf tenderness and no pedal edema Neuro: SENSORIUM/ORIENTATION: Yes oriented to person, Yes oriented to place and Yes oriented to time Skin: COMMON NORMALS: no rashes or lesions noted GENERAL SKIN EXAM: no rashes or lesions noted Course Vital Signs: Vital signs: Vital Signs Temperature 97.8 F 04/02/23 12:59 Pulse Rate 77 04/02/23 12:59 Respiratory Rate 16 04/02/23 12:59 Blood Pressure 102/69 04/02/23 12:59 Pulse Oximetry 96 04/02/23 12:59 Oxygen Delivery Me thod Room Air 04/02/23 11:00 MDM - Weakness Medical Decision Making Hypokalemia anemia, Transaminitis. Suspect most of this caused by her alcohol use. Her hypokalemia is impressive while we are monitoring her and waiting for the results of her work-up she did have a run of nonsustained V. tach. Will admit the patient for further observation and replacement of her potassium. Discussed with hospitalist orders written Lab Data 03/31/23 03:45 03/31/23 03:[address] 03/31/23 14:06 IMPRESSION: 1. No CT evidence of acute intracranial pathology. 2. Additional findings, as above. Laboratory Results WBC 8.52 10^3/uL (3.29-11.43) 03/29/23 13:45 RBC 3.01 10^6/uL (3.85-5.65) L 03/29/23 13:45 Hgb 10.40 g/dL (11.27-16.99) L 03/29/23 13:45 Hct 31.2 % (36-47) L 03/29/23 13:45 MCV 103.7 fl (85-98) H 03/29/23 13:45 MCH 34.6 pg (27-33) H 03/29/23 13:45 MCHC 33.3 g/dL (30-55) 03/29/23 13:45 RDW 14.6 % (12.1-15.1) 03/29/23 13:45 Plt Count 244 10^3/cmm (157-399) 03/29/23 13:45 MPV 8.7 fL (7.4-10.4) 03/29/23 13:45 Neut % (Auto) 70.8 % 03/29/23 13:45 Lymph % (Auto) 17.5 % 03/29/23 13:45 [place] % (Auto) 10.8 % 03/29/23 13:45 Eos % (Auto) 0.0 % 03/29/23 13:45 Baso % (Auto) 0.2 % 03/29/23 13:45 Neut # (Auto) 6.03 10^3/uL (1.8-7.7) 03/29/23 13:45 Lymph # (Auto) 1.5 10^3/uL (0.8-4.8) 03/29/23 13:45 [place] # (Auto) 0.9 10^3/uL (0.2-0.9) 03/29/23 13:45 Eos # (Auto) 0.0 10^3/uL (0.0-0.8) 03/29/23 13:45 Baso # (Auto) 0.0 10^3/uL (0.0-0.1) 03/29/23 13:45 Nucleated RBC % (auto) 0.2 % 03/29/23 13:45 Nucleated RBCs # 0.0 /100WBC 03/29/23 13:45 PT 14.30 SECONDS (12.1-14.9) 03/29/23 13:45 INR 1.08 (0.8-1.2) 03/29/23 13:45 APTT 24.7 SECONDS (23.9-36.7) 03/29/23 13:45 Sodium 131 mmol/L (136-145) L 03/29/23 13:45 Potassium 2.8 mmol/L (3.5-5.1) L* 03/29/23 13:45 Chloride 88 mmol/L (98-107) L 03/29/23 13:45 Carbon Dioxide 19 mmol/L (22-29) L 03/29/23 13:45 Anion Gap 26.8 (5-19) H 03/29/23 13:45 BUN 2 mg/dL (6-20) L 03/29/23 13:45 Creatinine 0.7 mg/dL (0.5-0.9) 03/29/23 13:45 GFR Calculation 95.8 mL/min (90-130) 03/29/23 13:45 Glucose 214 mg/dL (65-115) H 03/29/23 13:45 Calculated Osmolality 275 mOsm/kg (285-295) L 03/29/23 13:45 Calcium 7.6 mg/dL (8.5-10.5) L 03/29/23 13:45 Magnesium 1.4 mg/dL (1.7-2.3) L 03/29/23 13:45 Total Bilirubin 1.2 mg/dL (0.15-1.2) 03/29/23 13:45 AST 47 U/L (0-32) H 03/29/23 13:45 ALT 18 U/L (0-33) 03/29/23 13:45 Alkaline Phosphatase 181 U/L (35-105) H 03/29/23 13:45 Ammonia 71 umol/L (11-51) H 03/29/23 14:28 Total Protein 5.2 g/dL (6.6-8.7) L 03/29/23 13:45 Albumin 2.2 g/dL (3.5-5.2) L 03/29/23 13:45 Globulin 3.0 g/dL (1.3-4.6) 03/29/23 13:45 Vitamin B12 1398 pg/mL (232-1245) H 03/29/23 13:45 TSH 0.59 uIU/mL (0.27-4.20) 03/29/23 13:45 TSH 0.59 uIU/mL (0.27-4.20) 03/29/23 13:45 Ethyl Alcohol 43 mg/dL (0-10) H 03/29/23 13:45 Hepatitis A IgM Ab Non-reactive (Nonreactive) 03/29/23 13:45 Hep Bs Antigen Non-reactive (Nonreactive) 03/29/23 13:45 Hep B Core IgM Ab Non-reactive (Nonreactive) 03/29/23 13:45 Hepatitis C Antibody Non-reactive (Nonreactive) 03/29/23 13:45 All radiology interpretation(s) finalized by discharge Discharge Plan Discharge Patient Disposition: Admitted As Inpatient Admit Provider: Markus Torres Clinical Impression: Alcoholic encephalopathy, Acute hypokalemia, Non-sustained ventricular tachycardia, Transaminitis Condition: Stable Discharge Diet: Regular Discharge Activity: As per PT/OT instructions Coding Level of Care Code ED Director Plans for Thi Chaney
[2023-03-29 14:25] LABS: Potassium 2.8 mmol/L (3.5-5.1)
--- NOTE | 2023-03-29 14:33 | XR_ITS ---
WS: [id number] Portable AP semiupright chest, 03/29/2023 Clinical Data: dyspnea/cough Comparison: Portable chest, 01/08/2023 Findings: No nodules, masses or effusions are seen. The heart is normal. The pulmonary vascularity is not increased. No pneumonia or pneumothorax is seen. There are monitor leads on the chest wall. Impression: Negative chest.
[2023-03-29] MEDS: LORazepam 2 mg/mL INJ 1 mL IVP ×2 (14:35→15:25)
[2023-03-29] MEDS: potassium chloride premix 100 ML 25 MEQ IV (14:35)
[2023-03-29 14:48] LABS: Ammonia 71 umol/L (11-51)
[2023-03-29] MEDS: folic acid 1 MG, multivitamin inj 10 ML, thiamine 100 MG in sodium chloride 0.9% 1,000 ML 252.8 MG IV (15:58)
[2023-03-29 16:48] LABS: Magnesium 1.4 mg/dL (1.7-2.3)
[2023-03-29 16:56] LABS: Hepatitis A Antibody IgM Non-Reactive (Nonreactive); Hepatitis B Core IgM Non-Reactive (Nonreactive); Hepatitis B Surface Antigen Non-Reactive (Nonreactive); Hepatitis C Virus Antibody Non-Reactive (Nonreactive)
--- NOTE | 2023-03-29 17:11 | P.HP_ITS ---
Providers/Chief Complaint Admitting Physician: Markus Torres MD Primary Care Provider: Briseida Sánchez Chief Complaint: fall, weakness History of Present Illness Lou Marks is a 32 year old female who is a chronic smoker, drinks alcohol and daily basis, uses kratom present to the hospital for confusion fatigue lethargy and not been able to put weight on her feet. Patient is stating that her legs were really weak she just had no strength at all she did not notice any stroke related symptoms, in the ER she was diagnosed with severe electrolyte imbalance wide QRS tachycardia was noted for about 14 beats her mag and potassium was repleted aggressively, she was given a dose of phenobarb as well in the ICU, patient did not complain of any chest pain or shortness of breath, she remained afebrile. She lives with her boyfriend Review of Systems Const: Reports: chills and body aches; Denies: fever(s) Eyes: Denies: change in vision ENMT: Denies: throat pain Card: Denies: chest pain Resp: Reports: dyspnea GI: Denies: abdominal pain : Denies: flank pain Musc: Denies: neck pain Skin/Breast: Reports: rash; Denies: lesions Neuro: Denies: headache(s) Medications/Allergies Home Medications Medication Instructions Recorded Confirmed Last Taken Type ondansetron HCl 4 mg tablet 4 mg PO Q8H PRN nausea and 01/08/23 03/29/23 Unknown Rx vomiting #14 tabs potassium chloride 20 mEq 20 meq PO BID #14 tabs 03/20/23 03/29/23 03/28/23 Rx tablet,extended release omeprazole 20 mg capsule,delayed 20 mg PO DAILY 03/29/23 03/29/23 03/28/23 Hist ory release Allergies Allergy/AdvReac Type Severity Reaction Status Date / Time haloperidol [From Haldol] AdvReac Mild swallowed Verified 03/29/23 14:00 tongue and couldn't move legs PFSH Acute PFSH: Medical History Depression PTSD (post-traumatic stress disorder) Surgical History No pertinent past surgical history Family History Other Hypertension Seizure Social History Smoking and tobacco status: current every day smoker cigarettes Packs smoked per day: 1 Alcohol intake: current Alcohol intake frequency: 3 or more drinks per day Alcohol type: beer Substance/Drug Use: current Substance/Drug use frequency: daily Vitals/I&O/Wt Last Vital Signs Temp 98.0 F 03/29/23 13:42 Pulse 130 H 03/29/23 16:30 Resp 27 H 03/29/23 16:30 BP 121/87 03/29/23 16:30 Pulse Ox 100 03/29/23 16:10 O2 Del Method Room Air 03/29/23 15:38 Weight last 48 hrs Weight 45.359 kg Physical Exam Narrative: Patient is awake and alert Dehydrated Malnourished GCS 15 Nonfocal neuro exam Intertrigo right groin area No signs of Renato's gangrene or crepitation A bruise present on right hays area otherwise no significant skin ulcers S1, S2 Currently on room air Tachycardia Data 03/30/23 04:09 03/30/23 04:09 A&P Assessment and plan (1) Abdominal pain: (2) Elevated LFTs: (3) Nicotine dependence, cigarettes, with unspecified nicotine-induced disorders: (4) Depression: (5) 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: (6) Hypokalemia: (7) Sinus tachycardia: Plan alcohol related encephalopathy Chronic smoker Kratom addiction wide QRs tachycardia thiamine IV high dose start phenobarbital po and IV for withdrawal effect replenish Mag and K request drug screen mg>2 and k >4 goal full code full liq diet Monitor QRS interval monitor for signs of alcohol withdrawal dvt ppx Check B12, TSH, mag level Attestations Medical Necessity Statement*: More than 2 midnights anticipated for severe electrolyte imbalance and polysubstance abuse Diagnoses Abdominal pain R10.9 Elevated LFTs R79.89 Nicotine dependence, cigarettes, with unspecified nicotine-induced disorders F17.219 Depression F32.9 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 F10.151 Hypokalemia E87.6 Sinus tachycardia R00.0
[2023-03-29 17:51] LABS: Thyroid Stimulating Hormone 0.59 uIU/mL (0.27-4.20); Vitamin B12 1398 pg/mL (232-1245)
[2023-03-29] MEDS: PHENobarbital 32.4 mg Tablet 64.8 MG PO (18:32)
[2023-03-29] MEDS: calcium gluconate 0.9% NaCL 1 GM/50 ML PREMIX IV (19:06)
[2023-03-29] MEDS: magnesium sulfate premix 1 GM/100 ML PIGGYBACK IV ×2 (19:07→20:32)
[2023-03-29] MEDS: sodium chloride 0.9% 1,000 ML 75 ML IV (19:07)
[2023-03-29] MEDS: piperacillin-tazobactam 3.375 GM in sodium chloride 0.9% (plus) 50 ML IV (19:14)
[2023-03-29] MEDS: lidocaine 1% 5 ML in potassium chloride premix 100 ML 25 ML IV (19:15)
[2023-03-29] MEDS: lactated ringers 1,000 ML 999 ML IV (19:20)
--- NOTE | 2023-03-29 19:30 | PC.NURSE ---
Shift summary: Pt lethargic. She does rouse to verbal command and follow directions grudgingly. She yells out and mumbles in her sleep as if she is in her own house. Sinsu tach noted on monitor. BP WNL. She is afebrile. She was just admitted to ICu. SHe has multiple electrolyte replacements and zosyn infusing into bilat AC IVs. She is able to swallow pills at this time. SHe was started on phenobarbital. No tremors or sweating noted. Pt unable to urinate for urinalysis, bladder scan done to assess, 170 ml only present. Family is at bedside. Will continue to monitor.
[2023-03-29] MEDS: metoprolol tartrate 25 mg Tablet PO (20:32)
[2023-03-29] MEDS: acetaminophen 500 mg Tablet PO (20:32)
[2023-03-29 21:28] LABS: Amphetamines Screen Urine Negative (Negative); Barbiturates Screen Urine Negative (Negative); Benzodiazepines Screen Urine Positive (Negative); Cocaine Screen Urine Negative (Negative); Opiate Screen Urine Negative (Negative); PCP Screen Urine Negative (Negative); THC Screen Urine Positive (Negative)
[2023-03-29 21:31] LABS: Add Urine Microscopic? YES; Amorphous Sediment Urine 1+ /hpf; Bacteria Urine TRACE /hpf; Bilirubin Urine Neg (Negative); Blood Urine Neg (Negative); Glucose Urine UA Norm (Normal); Ketones Urine Negative (Negative); Leukocyte Esterase Urine Trace (Negative); Nitrate Urine Negative (Negative); Protein Urine Neg (Negative); RBC Urine 0-4 /hpf (0-2); Specific Gravity, Urine 1.005 (1.005-1.030); Urine Appearance Hazy (CLEAR); Urine Color Yellow (Yellow); Urobilinogen Urine Neg (Negative); pH Urine 5 (5-7)
[2023-03-29 21:32] LABS: Add Urine Culture? No
[2023-03-30] VITALS (12 sets, daily range): BP systolic 98–111; BP diastolic 69–85; PULSE 93–102; RESP 13–24; TEMP 36.3; O2SAT 94–98
[2023-03-30 00:20] LABS: Blood Urea Nitrogen 2 mg/dL (6-20); Calcium 7.2 mg/dL (8.5-10.5); Carbon Dioxide 23 mmol/L (22-29); Chloride 100 mmol/L (98-107); Glomerular Filtration Rate 182.7 mL/min (90-130); Glucose 113 mg/dL (65-115); Magnesium 2.2 mg/dL (1.7-2.3); Osmolality Calculated 271 mOsm/kg (285-295); Sodium 132 mmol/L (136-145)
[2023-03-30 00:26] LABS: Anion Gap 12.8 (5-19); Potassium 3.8 mmol/L (3.5-5.1)
[2023-03-30] MEDS: piperacillin-tazobactam 3.375 GM in sodium chloride 0.9% (plus) 50 ML IV ×2 (01:14→08:30)
[2023-03-30 05:00] LABS: Basophils % 0.2 %; Hematocrit 27.3 % (36-47); Lymphocytes # 1.7 10^3/uL (0.8-4.8); Lymphocytes % 28.6 %; Mean Corpuscular HGB Conc 32.6 g/dL (30-55); Mean Corpuscular Hemoglobin 34.4 pg (27-33); Mean Corpuscular Volume 105.4 fl (85-98); Mean Platelet Volume 9.6 fL (7.4-10.4); Monocytes # 0.6 10^3/uL (0.2-0.9); Monocytes % 10.5 %; Neutrophils % 60.4 %; Nucleated Red Blood Cells % 0 %; Platelet Count 204 10^3/cmm (157-399); Red Blood Count 2.59 10^6/uL (3.85-5.65); Red Cell Distribution Width 14.8 % (12.1-15.1)
[2023-03-30 05:21] LABS: Anion Gap 11.4 (5-19); Blood Urea Nitrogen 3 mg/dL (6-20); Calcium 7.3 mg/dL (8.5-10.5); Carbon Dioxide 26 mmol/L (22-29); Chloride 103 mmol/L (98-107); Glomerular Filtration Rate 141.2 mL/min (90-130); Glucose 106 mg/dL (65-115); Magnesium 2.3 mg/dL (1.7-2.3); Osmolality Calculated 281 mOsm/kg (285-295); Phosphorus 3.5 mg/dL (2.5-4.5); Potassium 3.4 mmol/L (3.5-5.1); Sodium 137 mmol/L (136-145)
[2023-03-30 07:58] LABS: Glucose Point of Care 118 mg/dL (70-110)
[2023-03-30] MEDS: folic acid 1 mg Tablet PO (08:16)
[2023-03-30] MEDS: metoprolol tartrate 25 mg Tablet PO ×2 (08:16→21:30)
[2023-03-30] MEDS: sennosides-docusate Tablet 1 TAB PO (08:16)
[2023-03-30] MEDS: PHENobarbital 32.4 mg Tablet 64.8 MG PO ×2 (08:16→17:34)
[2023-03-30] MEDS: nystatin cream 30 gm 1 APPLIC TOPICAL (08:17)
--- NOTE | 2023-03-30 08:49 | PM.PN ---
Subjective Subjective: No overnight events Electrolyte replenished Tachycardia improving with IV fluid hydration Afebrile No leukocytosis Doing well on room air Vitals/I&O/Wt Last Vital Signs Temp 98.0 F 03/29/23 13:42 Pulse 102 H 03/30/23 05:40 Resp 21 H 03/30/23 02:00 BP 106/75 03/30/23 02:00 Pulse Ox 94 03/30/23 01:30 O2 Del Method Room Air 03/29/23 20:16 03/29/23 03/30/23 03/30/23 22:59 06:59 14:59 Intake Total 4161.2 / 4161.2 200 / 4361.2 Output Total 0 / 0 Balance 4161.2 / 4161.2 200 / 4361.2 Weight last 48 hrs Weight 45.359 kg Physical Exam Narrative: Signs of dehydration improving Currently on room air Pleasant and cooperative Mild tremors of upper extremities No significant alcohol withdrawal related symptoms S1, S2 tachycardia Abdomen soft Right groin ulcer?intertrigo Data 03/30/23 04:09 03/30/23 04:09 A&P Assessment and plan (1) Sinus tachycardia: (2) Hypokalemia: (3) 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: (4) Abdominal pain: (5) Elevated LFTs: (6) Nicotine dependence, cigarettes, with unspecified nicotine-induced disorders: Plan Severe electrolyte imbalance related to polysubstance abuse Monitor patient for 1 more day Discontinue IV phenobarb Transfer out of ICU to [facility] I will keep her on p.o. phenobarbital for now Sinus tachycardia related to polysubstance abuse Continue metoprolol She have intertrigo for which I would use the nystatin powder Afebrile no leukocytosis Check CMP tomorrow Plan to discharge her tomorrow if stable requested physical therapy Full code Start regular diet DVT prophylaxis on board Attestations Medical Necessity Statement*: Continue medical management Diagnoses Sinus tachycardia R00.0 Hypokalemia E87.6 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 F10.151 Abdominal pain R10.9 Elevated LFTs R79.89 Nicotine dependence, cigarettes, with unspecified nicotine-induced disorders F17.219
--- NOTE | 2023-03-30 11:35 | PC.NURSE ---
Report faxed to [facility].
[2023-03-30] MEDS: nicotine 21 mg Patch 1 PATCH TRANSDERMA (11:51)
[2023-03-30 12:07] LABS: Glucose Point of Care 132 mg/dL (70-110)
[2023-03-30] MEDS: acetaminophen 500 mg Tablet PO (13:11)
[2023-03-30] MEDS: sodium chloride 0.9% 1,000 ML 75 ML IV (13:11)
--- NOTE | 2023-03-30 13:15 | PC.NURSE ---
Report called to [facility], Report given to KORINA Ortega.
--- NOTE | 2023-03-30 13:25 | PC.NURSE ---
Pt up to [facility] with difficulty, legs buckled and she could no bear weight. BM noted. Pt then transferred to W/C , still the same difficulties. Pt transferred to [facility] with all of her belongings.
[2023-03-30] MEDS: doxycycline 100 mg Tablet PO ×2 (14:51→17:34)
[2023-03-30] MEDS: pantoprazole DR 40 mg Tablet PO (14:51)
[2023-03-30] MEDS: morphine IR 15 mg Tablet PO ×2 (14:51→21:30)
[2023-03-30 16:25] LABS: Glucose Point of Care 137 mg/dL (70-110)
[2023-03-30 21:16] LABS: Glucose Point of Care 105 mg/dL (70-110)
[2023-03-31] VITALS (13 sets, daily range): BP systolic 93–121; BP diastolic 67–87; PULSE 77–104; RESP 15–22; TEMP 36.4–36.9; O2SAT 90–100
--- NOTE | 2023-03-31 00:41 | PC.NURSE ---
Fall occured 2344 Patient's call light came on and Nurse responded immediately to the room. Upon entering room patient was seen on her knees next to the bed. Patient said, I thought I could make it to the bedside commode by myself but my legs are too weak. Nurse and FISHER TERRAPIN assisted patient back into bed. Patient able to move all extremities without complaint of pain. 1 cm X 2 cm abrasion noted to left knee cap, cleansed with NS, patted dry, and covered with Optifoam dressing. No other injuries noted on assessment. Vital signs stable. Patient denies hitting her head, states I just went down on my knees. Patient educated again information systems security developer light system and to wait for assistance before ambulating. Bed alarm was turned on. Night time hospitalist Dr. Ugalde notified at 0008, no new orders. Life partner Barry Marks notified by phone at 0013. traffic sign erection supervisor notified at 0014.
[2023-03-31 04:38] LABS: Basophils % 0.5 %; Hematocrit 27.2 % (36-47); Lymphocytes # 1.6 10^3/uL (0.8-4.8); Lymphocytes % 26.2 %; Mean Corpuscular Hemoglobin 34.3 pg (27-33); Mean Corpuscular Volume 107.1 fl (85-98); Mean Platelet Volume 9.9 fL (7.4-10.4); Monocytes # 0.5 10^3/uL (0.2-0.9); Monocytes % 8.2 %; Neutrophils # 3.96 10^3/uL (1.8-7.7); Neutrophils % 64.8 %; Nucleated Red Blood Cells % 0 %; Platelet Count 197 10^3/cmm (157-399); Red Blood Count 2.54 10^6/uL (3.85-5.65); Red Cell Distribution Width 14.6 % (12.1-15.1); White Blood Count 6.11 10^3/uL (3.29-11.43)
[2023-03-31 04:54] LABS: Alanine Aminotransferase 28 U/L (0-33); Albumin Level 1.5 g/dL (3.5-5.2); Alkaline Phosphatase 142 U/L (35-105); Aspartate Amino Transferase 84 U/L (0-32); Blood Urea Nitrogen 4 mg/dL (6-20); Calcium 7.4 mg/dL (8.5-10.5); Carbon Dioxide 24 mmol/L (22-29); Chloride 104 mmol/L (98-107); Globulin 2.7 g/dL (1.3-4.6); Glomerular Filtration Rate 182.7 mL/min (90-130); Glucose 103 mg/dL (65-115); Magnesium 1.7 mg/dL (1.7-2.3); Osmolality Calculated 283 mOsm/kg (285-295); Sodium 138 mmol/L (136-145); Total Bilirubin 0.7 mg/dL (0.15-1.2); Total Protein 4.2 g/dL (6.6-8.7)
[2023-03-31] MEDS: morphine IR 15 mg Tablet PO ×3 (05:59→23:01)
[2023-03-31 06:30] LABS: Glucose Point of Care 91 mg/dL (70-110)
[2023-03-31] MEDS: folic acid 1 mg Tablet PO (09:54)
[2023-03-31] MEDS: pantoprazole DR 40 mg Tablet PO (09:55)
[2023-03-31] MEDS: doxycycline 100 mg Tablet PO ×2 (09:55→18:14)
[2023-03-31] MEDS: sennosides-docusate Tablet 1 TAB PO (09:55)
[2023-03-31] MEDS: metoprolol tartrate 25 mg Tablet PO ×2 (09:55→20:19)
[2023-03-31] MEDS: PHENobarbital 32.4 mg Tablet 64.8 MG PO (09:55)
[2023-03-31] MEDS: nystatin cream 30 gm 1 APPLIC TOPICAL (09:55)
[2023-03-31] MEDS: acetaminophen 500 mg Tablet PO ×2 (09:55→20:19)
[2023-03-31] MEDS: nicotine 21 mg Patch 1 PATCH TRANSDERMA (09:56)
--- NOTE | 2023-03-31 10:46 | PM.PN ---
Subjective Subjective: No overnight events Patient may need rehab we will request PT Afebrile Hemodynamically stable Currently on room air Vitals/I&O/Wt Last Vital Signs Temp 97.7 F 03/31/23 07:31 Pulse 93 03/31/23 08:00 Resp 15 03/31/23 08:00 BP 103/72 03/31/23 07:31 Pulse Ox 90 03/31/23 08:00 O2 Del Method Room Air 03/31/23 08:00 03/30/23 03/31/23 03/31/23 22:59 06:59 14:59 Intake Total 1480 / 1480 Balance 1480 / 1480 Weight last 48 hrs Weight 45.359 kg Physical Exam Narrative: Lower extremity weakness without focal exam Awake and alert Nonfocal neuro exam GCS 15 sinus tachycardia improved Signs of dehydration improved S1, S2 GCS 15 Doing well on room air Pleasant and cooperative Data 03/31/23 03:45 03/31/23 03:45 A&P Assessment and plan (1) Sinus tachycardia: (2) Hypokalemia: (3) 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: (4) Abdominal pain: (5) Elevated LFTs: (6) Depression: (7) Nicotine dependence, cigarettes, with unspecified nicotine-induced disorders: (8) PTSD (post-traumatic stress disorder): Plan This patient may need SNF/rehab for lower extremity weakness Electrolytes replenished Refeeding syndrome: Improving Protein calorie malnourishment we will give her 1 bag of albumin Alcohol withdrawal: Symptoms improving discontinue phenobarbital Requested physical therapy Intertrigo continue doxycycline and nystatin powder No need to repeat labs for tomorrow Magnesium improved, phosphorus repleted Minutes tachycardia improved with IV fluid hydration, discontinue IV fluids today Attestations Medical Necessity Statement*: Possible discharge in next 24-hour Diagnoses Sinus tachycardia R00.0 Hypokalemia E87.6 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 F10.151 Abdominal pain R10.9 Elevated LFTs R79.89 Depression F32.9 Nicotine dependence, cigarettes, with unspecified nicotine-induced disorders F17.219 PTSD (post-traumatic stress disorder) F43.10
[2023-03-31 11:29] LABS: Glucose Point of Care 176 mg/dL (70-110)
[2023-03-31] MEDS: albumin 12.5 GM/250 ML VIAL IV (11:59)
--- NOTE | 2023-03-31 14:06 | CTR_ITS ---
PROCEDURE INFORMATION: Exam: CT Head Without Contrast Exam date and time: 03/31/2023 2:45 PM Age: 32 years old Clinical indication: Altered mental status/memory loss; Additional info: AMS TECHNIQUE: Imaging protocol: Computed tomography of the head without contrast. Axial, coronal and sagittal reformatted images were created and reviewed. Radiation optimization: All CT scans at this facility use at least one of these dose optimization techniques: automated exposure control; mA and/or kV adjustment per patient size (includes targeted exams where dose is matched to clinical indication); or iterative reconstruction. REPORTING DATA: Count of CT and Cardiac NM exams in prior 12 months: This patient has received 2 known CTs and 0 known cardiac nuclear medicine studies in the 12 months prior to the current study. COMPARISON: No relevant prior studies available. RADIATION DOSE METRICS: Total DLP (mGy-cm): 997.39 FINDINGS: Brain: Left posterior fossa arachnoid cyst versus quyen cisterna magna. No CT evidence of acute intracranial hemorrhage or acute territorial infarction. No significant mass effect or midline shift. Basal cisterns patent. Cerebral ventricles: Prominence of the cortical sulci, cisterns and ventricular system, consistent with cerebral and cerebellar volume loss. Paranasal sinuses: Mild polypoid right posterior ethmoid and right sphenoid sinus mucosal thickening. No fluid levels. Mastoid air cells: Grossly unremarkable. Bones/joints: No acute osseous abnormality. Soft tissues: Grossly unremarkable. CT/CT head wo con* [id number] IMPRESSION: 1. No CT evidence of acute intracranial pathology. 2. Additional findings, as above.
--- NOTE | 2023-03-31 14:26 | PC.NURSE ---
Patient's mother stated patient did not have electricity at home and spent all of her money on alcohol. Requesting case management to see and to contact mother.
[2023-03-31 16:20] LABS: Glucose Point of Care 138 mg/dL (70-110)
[2023-03-31 20:53] LABS: Glucose Point of Care 109 mg/dL (70-110)
[2023-04-01] VITALS (10 sets, daily range): BP systolic 94–114; BP diastolic 68–80; PULSE 80–98; RESP 16–18; TEMP 36.4–37; O2SAT 96–100
[2023-04-01] MEDS: morphine IR 15 mg Tablet PO ×3 (09:35→23:19)
[2023-04-01] MEDS: metoprolol tartrate 25 mg Tablet PO ×2 (09:35→21:03)
[2023-04-01] MEDS: doxycycline 100 mg Tablet PO ×2 (09:35→17:27)
[2023-04-01] MEDS: thiamine 100 mg Tablet PO (09:35)
[2023-04-01] MEDS: pantoprazole DR 40 mg Tablet PO (09:35)
[2023-04-01] MEDS: folic acid 1 mg Tablet PO (09:35)
[2023-04-01] MEDS: gabapentin 300 mg Capsule PO ×2 (09:35→17:27)
[2023-04-01] MEDS: sennosides-docusate Tablet 1 TAB PO (09:35)
[2023-04-01] MEDS: nicotine 21 mg Patch 1 PATCH TRANSDERMA (09:36)
--- NOTE | 2023-04-01 11:04 | P.PN_ITS ---
Subjective Subjective: Multiple discussions took place today regarding disposition plan Patient is suffering from alcohol-related neuropathy numbness and tingling added duloxetine and gabapentin Asked her to work with PT and decide on her disposition plan hospital manager updated No overnight events No need to repeat labs Vitals/I&O/Wt Last Vital Signs Temp 97.9 F 04/01/23 08:42 Pulse 94 04/01/23 08:42 Resp 16 04/01/23 09:35 BP 103/70 04/01/23 08:42 Pulse Ox 96 04/01/23 08:42 O2 Del Method Room Air 04/01/23 08:42 03/31/23 04/01/23 04/01/23 22:59 06:59 14:59 Intake Total 480 / 2690 240 / 2930 480 / 480 Output Total 1000 / 1000 Balance 480 / 2690 -760 / 1930 480 / 480 Physical Exam Narrative: Awake and alert Nonfocal neuro exam Signs of dehydration improved Lower extremity swelling Abdomen soft Numbness and tingling of lower extremity Paresthesia of lower extremity Currently on room air Anxious and irritable due to restless legs Data 03/31/23 03:45 03/31/23 03:45 A&P Assessment and plan (1) Sinus tachycardia: (2) Hypokalemia: (3) 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 regimen We will follow with PT evaluation Patient may qualify for inpatient rehab For peripheral neuropathy started gabapentin and duloxetine Normal B12 level Abdominal pannus intertrigo continue doxycycline and nystatin powder Attestations Medical Necessity Statement*: Continue medical management Diagnoses Sinus tachycardia R00.0 Hypokalemia E87.6 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 F10.151 Abdominal pain R10.9 Elevated LFTs R79.89 Nicotine dependence, cigarettes, with unspecified nicotine-induced disorders F17.219 PTSD (post-traumatic stress disorder) F43.10 Depression F32.9 Alcoholic peripheral neuropathy G62.1
[2023-04-01 11:22] LABS: Glucose Point of Care 159 mg/dL (70-110)
[2023-04-01] MEDS: acetaminophen 500 mg Tablet PO ×2 (12:18→19:27)
[2023-04-01] MEDS: nystatin cream 30 gm 1 APPLIC TOPICAL ×2 (12:53→17:27)
[2023-04-01 16:38] LABS: Glucose Point of Care 116 mg/dL (70-110)
[2023-04-01] MEDS: duloxetine 20 mg Capsule PO (17:27)
[2023-04-01] MEDS: nicotine 2 mg Gum BUCCAL (18:53)
[2023-04-01 20:34] LABS: Glucose Point of Care 135 mg/dL (70-110)
[2023-04-02] VITALS (7 sets, daily range): BP systolic 97–110; BP diastolic 62–69; PULSE 71–78; RESP 16–18; TEMP 36.4–36.6; O2SAT 90–98
[2023-04-02 06:32] LABS: Glucose Point of Care 101 mg/dL (70-110)
[2023-04-02] MEDS: metoprolol tartrate 25 mg Tablet PO (08:33)
[2023-04-02] MEDS: folic acid 1 mg Tablet PO (08:33)
[2023-04-02] MEDS: duloxetine 20 mg Capsule PO (08:33)
[2023-04-02] MEDS: thiamine 100 mg Tablet PO (08:33)
[2023-04-02] MEDS: gabapentin 300 mg Capsule PO (08:33)
[2023-04-02] MEDS: sennosides-docusate Tablet 1 TAB PO (08:33)
[2023-04-02] MEDS: doxycycline 100 mg Tablet PO (08:33)
[2023-04-02] MEDS: pantoprazole DR 40 mg Tablet PO (08:33)
[2023-04-02] MEDS: morphine IR 15 mg Tablet PO (08:37)
--- NOTE | 2023-04-02 10:54 | PM.DCS ---
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 She was diagnosed with alcohol-related encephalopathy he was put on phenobarbital in the ICU however she did not show significant signs of withdrawal, her electrolytes were replenished, she was put on doxycycline for abdominal pannus intertrigo which showed some redness, nystatin powder was used, she remained afebrile, no leukocytosis, electrolytes were replenished for her wide QRS tachycardia that was noted at the time of admission, B12 normal, she does have protein calorie malnourishment with low albumin she was given 1 bag of albumin, she is suffering from alcohol-related peripheral neuropathy she is experiencing numbness tingling and paresthesia for which I have given her gabapentin and duloxetine. Head CT unremarkable. Normal B12, TSH, beta-hCG negative. Phosphorus and magnesium normal She has significant alcohol-related peripheral neuropathy and ataxia, she is also forgetful short term memory loss Patient does not want to go to inpatient rehab because she wants to take care of her daughter who is 13 years old, son who is 14 years old lives with his grandmother. Patient walked 200 feet with the help of a walker, for her numbness tingling of lower extremity and paresthesia I will continue gabapentin and duloxetine, she will consider high risk for recurrent falls. We will provide her a walker and prescription to do physical therapy outpatient. She does not want to pay [id number] to go to rehab. Physical Exam Narrative: Patient is awake and alert Lower extremity swelling Protein calorie malnourishment Pleasant and cooperative Lower extremity paresthesia Nonfocal neuro exam Currently on room air No signs of withdrawal Discharge Data Studies Completed and Pending Completed Studies During Hospitalization Category Date Time Status CT head wo con* [id number] Routine Cat Scan 03/31/23 14:06 Completed XR chest 1V portable [id number] Stat Exams 03/29/23 14:33 Completed Radiology Impressions Head CT 03/31/23 14:06 IMPRESSION: 1. No CT evidence of acute intracranial pathology. 2. Additional findings, as above. Laboratory Results WBC 6.11 10^3/uL (3.29-11.43) 03/31/23 03:45 RBC 2.54 10^6/uL (3.85-5.65) L 03/31/23 03:45 Hgb 8.70 g/dL (11.27-16.99) L 03/31/23 03:45 Hct 27.2 % (36-47) L 03/31/23 03:45 MCV 107.1 fl (85-98) H 03/31/23 03:45 MCH 34.3 pg (27-33) H 03/31/23 03:45 MCHC 32.0 g/dL (30-55) 03/31/23 03:45 RDW 14.6 % (12.1-15.1) 03/31/23 03:45 Plt Count 197 10^3/cmm (157-399) 03/31/23 03:45 MPV 9.9 fL (7.4-10.4) 03/31/23 03:45 Neut % (Auto) 64.8 % 03/31/23 03:45 Lymph % (Auto) 26.2 % 03/31/23 03:45 Toole % (Auto) 8.2 % 03/31/23 03:45 Eos % (Auto) 0.0 % 03/31/23 03:45 Baso % (Auto) 0.5 % 03/31/23 03:45 Neut # (Auto) 3.96 10^3/uL (1.8-7.7) 03/31/23 03:45 Lymph # (Auto) 1.6 10^3/uL (0.8-4.8) 03/31/23 03:45 Toole # (Auto) 0.5 10^3/uL (0.2-0.9) 03/31/23 03:45 Eos # (Auto) 0.0 10^3/uL (0.0-0.8) 03/31/23 03:45 Baso # (Auto) 0.0 10^3/uL (0.0-0.1) 03/31/23 03:45 Nucleated RBC % (auto) 0 % 03/31/23 03:45 Nucleated RBCs # 0.0 /100WBC 03/31/23 03:45 PT 14.30 SECONDS (12.1-14.9) 03/29/23 13:45 INR 1.08 (0.8-1.2) 03/29/23 13:45 APTT 24.7 SECONDS (23.9-36.7) 03/29/23 13:45 Sodium 138 mmol/L (136-145) 03/31/23 03:45 Potassium 3.0 mmol/L (3.5-5.1) L 03/31/23 03:45 Chloride 104 mmol/L (98-107) 03/31/23 03:45 Carbon Dioxide 24 mmol/L (22-29) 03/31/23 03:45 Anion Gap 13.0 (5-19) 03/31/23 03:45 BUN 4 mg/dL (6-20) L 03/31/23 03:45 Creatinine 0.4 mg/dL (0.5-0.9) L 03/31/23 03:45 GFR Calculation 182.7 mL/min (90-130) H 03/31/23 03:45 Glucose 103 mg/dL (65-115) 03/31/23 03:45 POC Glucose 109 mg/dL (70-110) 03/31/23 20:33 Calculated Osmolality 283 mOsm/kg (285-295) L 03/31/23 03:45 Calcium 7.4 mg/dL (8.5-10.5) L 03/31/23 03:45 Phosphorus 3.5 mg/dL (2.5-4.5) 03/30/23 04:09 Magnesium 1.7 mg/dL (1.7-2.3) 03/31/23 03:45 Total Bilirubin 0.7 mg/dL (0.15-1.2) 03/31/23 03:45 AST 84 U/L (0-32) H 03/31/23 03:45 ALT 28 U/L (0-33) 03/31/23 03:45 Alkaline Phosphatase 142 U/L (35-105) H 03/31/23 03:45 Ammonia 71 umol/L (11-51) H 03/29/23 14:28 C-Reactive Protein 3.0 mg/L (0.0-4.9) 03/30/23 04:09 Total Protein 4.2 g/dL (6.6-8.7) L 03/31/23 03:45 Albumin 1.5 g/dL (3.5-5.2) L 03/31/23 03:45 Globulin 2.7 g/dL (1.3-4.6) 03/31/23 03:45 Vitamin B12 1398 pg/mL (232-1245) H 03/29/23 13:45 TSH 0.59 uIU/mL (0.27-4.20) 03/29/23 13:45 TSH 0.59 uIU/mL (0.27-4.20) 03/29/23 13:45 Urine Color Yellow (Yellow) 03/29/23 21:00 Urine Appearance Hazy (CLEAR) A 03/29/23 21:00 Urine pH 5 (5-7) 03/29/23 21:00 Ur Specific [place] 1.005 (1.005-1.030) 03/29/23 21:00 Urine Protein Neg (Negative) 03/29/23 21:00 Urine Glucose (UA) Norm (Normal) 03/29/23 21:00 Urine Ketones Negative (Negative) 03/29/23 21:00 Urine Blood Neg (Negative) 03/29/23 21:00 Urine Nitrate Negative (Negative) 03/29/23 21:00 Urine Bilirubin Neg (Negative) 03/29/23 21:00 Urine Urobilinogen Neg mg/dL (Negative) 03/29/23 21:00 Ur Leukocyte Esterase Trace (Negative) H 03/29/23 21:00 Urine RBC 0-4 /hpf (0-2) H 03/29/23 21:00 Urine WBC 5-10 /hpf (0-5) H 03/29/23 21:00 Ur Squamous Epith Cells 10-15 /hpf (0-5) H 03/29/23 21:00 Amorphous Sediment 1+ /hpf 03/29/23 21:00 Urine Bacteria Trace /hpf (NONE) 03/29/23 21:00 Urine Opiates Screen Negative ng/mL (Negative) 03/29/23 21:00 Ur Barbiturates Screen Negative ng/mL (Negative) 03/29/23 21:00 Ur Phencyclidine Scrn Negative ng/mL (Negative) 03/29/23 21:00 Ur Amphetamines Screen Negative ng/mL (Negative) 03/29/23 21:00 U Benzodiazepines Scrn Positive ng/mL (Negative) H 03/29/23 21:00 Urine Cocaine Screen Negative ng/mL (Negative) 03/29/23 21:00 U Marijuana (THC) Screen Positive ng/mL (Negative) H 03/29/23 21:00 Ethyl Alcohol 43 mg/dL (0-10) H 03/29/23 13:45 Hepatitis A IgM Ab Non-reactive (Nonreactive) 03/29/23 13:45 Hep Bs Antigen Non-reactive (Nonreactive) 03/29/23 13:45 Hep B Core IgM Ab Non-reactive (Nonreactive) 03/29/23 13:45 Hepatitis C Antibody Non-reactive (Nonreactive) 03/29/23 13:45 Vitals Last Vital Signs Temp 97.9 F 04/01/23 08:42 Pulse 94 04/01/23 08:42 Resp 16 04/01/23 09:35 BP 103/70 04/01/23 08:42 Pulse Ox 96 04/01/23 08:42 O2 Del Method Room Air 04/01/23 08:42 Discharge Plan Discharge Patient Disposition: Home Condition: Stable Prescriptions: New thiamine mononitrate (vit B1) [Vitamin B-1 (mononitrate)] 100 mg Tablet 100 mg PO DAILY Qty: 90 2RF gabapentin 300 mg Capsule 300 mg PO BID Qty: 120 2RF metoprolol tartrate 25 mg Tablet 12.5 mg PO BID@0900,2100 Qty: 60 0RF folic acid 1 mg Tablet 1 mg PO DAILY Qty: 90 3RF duloxetine 20 mg Capsule,Delayed Release(Dr/Ec) 20 mg PO BID Qty: 60 3RF Continued ondansetron HCl 4 mg tablet 4 mg PO Q8H PRN (Reason: nausea and vomiting) Qty: 14 0RF omeprazole 20 mg capsule,delayed release(DR/EC) 20 mg PO DAILY Changed potassium chloride 20 mEq tablet extended release 20 meq PO BEDTIME Qty: 30 0RF Discharge Orders: Discharge Order (Routine); Ordered 04/02/23 Ordered By: Markus Torres Other Ambulatory Orders: DME: Walker (Order) Location: None Selected Ordered By: Markus Torres DME: Walker (Order) Location: None Selected Ordered By: Markus Torres Physical Therapy Eval and Treat Outpatient (Order) Timeframe: 3 Weeks Facility: [facility] - Location: Physical Therapy Ordered By: Markus Torres Referrals: Briseida Sánchez PA [Primary Care Provider] - 4-7 days Discharge Diet: Regular Discharge Activity: As per PT/OT instructions Patient Instructions: Opioid Safety Discharge Attestations Time Spent in Discharge Care*: greater than 30 min Quality Metrics Clinical Quality Measures [ No reported AMI, CVA or VTE this stay] Coding Level of Care Code Acute Code for Chg Fwd Diagnoses Sinus tachycardia R00.0 Hypokalemia E87.6 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 F10.151 Abdominal pain R10.9 Elevated LFTs R79.89 Nicotine dependence, cigarettes, with unspecified nicotine-induced disorders F17.219 PTSD (post-traumatic stress disorder) F43.10 Depression F32.9 Alcoholic peripheral neuropathy G62.1
--- NOTE | 2023-04-02 11:39 | PC.NURSE ---
[facility] calls to notify of insurance expiration as of 04/01/2023 and walker is not covered. Pt states that she will call [employer] and get insurance reinstated and will call for walker. She states that she does not want to pay for the walker without insurance. Notified [facility]. Number given for [employer] to be contacted.
--- NOTE | 2023-04-02 12:53 | PC.NURSE ---
1230 - Upon entering the room, pt awake, alert and covered with blankets. Pt self reports fall into the floor onto knees. Denies hitting head. States that she was able to get back into bed herself. Full assessment completed. No new bruising, swelling, skin integrity issues noted. VS stable. Dr. Torres notified. No new orders given.
== END 2023-04-02 13:00 | disposition home or self-care (01) | DRG 897 ==
LOC: ER 14:28 → ICU 16:29 → MEDSURG 03-30 13:38
PROVIDERS: Family Medicine; Admitting Provider Internal Medicine; Emergency Provider Family Medicine; PCP Physician Assistant; Visit Provider Internal Medicine
DX: F10.239 Alcohol dependence with withdrawal, unspecified (principal); I47.20 Ventricular tachycardia, unspecified; E46 Unspecified protein-calorie malnutrition; Z68.1 Body mass index [BMI] 19.9 or less, adult; G62.1 Alcoholic polyneuropathy; G31.2 Degeneration of nervous system due to alcohol; F17.210 Nicotine dependence, cigarettes, uncomplicated; L30.4 Erythema intertrigo; E87.6 Hypokalemia; F32.A Depression, unspecified; F43.10 Post-traumatic stress disorder, unspecified; E86.0 Dehydration; F19.10 Other psychoactive substance abuse, uncomplicated
CPT/HCPCS: 36415; 36416; 51798; 70450; 71045; 80048; 80053; 80074; 80306; 80307; 81001; 82140; 82607; 82962; 83735; 84100; 84443; 85025; 85610; 85730; 86140; 93005; 96365; 96367; 96375; 96376; 97110; 97116; 97161; 99285; J0610; J2060; J2543; J3411; J3475; J3480; J3490; J7030; J7120; P9045

== ENCOUNTER 2023-04-12 12:21 | Emergency (ER) | payer SELFPAY ==
[2023-04-12 12:26] VITALS: BP 119/88; PULSE 110; RESP 18; TEMP 36.8; O2SAT 99; BMI 19.5
--- NOTE | 2023-04-12 12:59 | PC.PHAR ---
PT IMPAIRED AND UNCOOPERATIVE. MED LIST VERIFIED BY PHARMACY LIST
[2023-04-12 13:29] VITALS: BP 122/106; PULSE 138; RESP 19; O2SAT 98
[2023-04-12 13:30] VITALS: BP 125/99; PULSE 140; RESP 16; O2SAT 98
[2023-04-12 13:58] LABS: Basophils % 0.5 %; Lymphocytes % 31.1 %; Mean Corpuscular HGB Conc 33.9 g/dL (30-55); Mean Corpuscular Hemoglobin 34.7 pg (27-33); Mean Corpuscular Volume 102.3 fl (85-98); Mean Platelet Volume 9.4 fL (7.4-10.4); Monocytes # 0.3 10^3/uL (0.2-0.9); Monocytes % 5.1 %; Neutrophils # 4.09 10^3/uL (1.8-7.7); Neutrophils % 63.1 %; Nucleated Red Blood Cells % 0 %; Platelet Count 337 10^3/cmm (157-399); Red Blood Count 3.03 10^6/uL (3.85-5.65); Red Cell Distribution Width 14.9 % (12.1-15.1); White Blood Count 6.47 10^3/uL (3.29-11.43)
--- NOTE | 2023-04-12 14:10 | W.ED.ALCOHOL ---
HPI - Alcohol General: Chief Complaint: Alcohol Stated Complaint: weakness, ETOH Time Seen by Provider: 04/12/23 12:28 History of Present Illness: 32-year-old female presents emergency room via EMS due to alcohol intoxication. Upon present emergency room patient is awake alert and did reveals that she has been drinking today and last night. Patient denies any chest pain, headache, nausea, vomiting, diarrhea or bloody stool. Associated symptoms: Deny hematemesis, nausea or vomiting Review of Systems General: Reports: 10 or more systems reviewed and unremarkable except in HPI and below GI: Denies: nausea, vomiting, hematemesis, coffee ground emesis, dysphagia, heartburn, early satiety, diarrhea, constipation, bloating, GI cramping, belching, excessive flatus or fecal incontinence REPLACED BY [facility] PFSH: Medical History Depression PTSD (post-traumatic stress disorder) Surgical History No pertinent past surgical history Family History Other Hypertension Seizure Social History Smoking and tobacco/nicotine status: current every day tobacco/nicotine user cigarettes Packs smoked per day: 1 Alcohol intake: current Alcohol intake frequency: 3 or more drinks per day Alcohol type: beer Substance/Drug Use: current Substance/Drug use frequency: daily Physical Exam Const: COMMON NORMALS: no acute distress EXAM LIMITATIONS: other limitations (Acute alcohol intoxication) GENERAL APPEARANCE: cooperative and odor of alcohol detected; not in distress, not anxious and not lethargic ORIENTATION/CONSCIOUSNESS: not lethargic HENMT: COMMON NORMALS: normocephalic, atraumatic, hearing grossly normal bilaterally, external ears normal, EAC's normal, TM's normal bilaterally, Normal external nose present, Normal nasal mucous membranes and turbinates present, moist oral mucous membranes, oropharynx normal, dentition normal and gingiva normal HEAD & SCALP: normocephalic and atraumatic NOSE: Normal external nose present and Normal nasal mucous membranes and turbinates present EXTERNAL EAR: Yes external ears normal EXTERNAL AUDITORY CANAL: EAC's normal TYMPANIC MEMBRANE: TM's normal bilaterally Neck/C-Spine: COMMON NORMALS: full ROM, no lymphadenopathy, supple, no meningeal signs, no JVD, Thyroid normal and No carotid bruits THYROID: Thyroid normal Chest: COMMONS NORMALS: normal inspection of the chest, normal palpation of entire chest wall, normal inspection of the breasts and normal palpation of the breasts Breast/axilla inspection: Yes normal inspection of the breasts BREAST/AXILLA PALPATION: Yes normal palpation of the breasts Resp: COMMON NORMALS: normal respiratory effort, No retractions, No use of accessory muscles, clear to auscultation bilaterally and percussion normal AUSCULTATION: clear to auscultation bilaterally PERCUSSION: percussion normal Cardio: COMMON NORMALS: no JVD and regular rhythm PALPATION: normal PMI RATE: tachycardic RHYTHM: regular rhythm GI: COMMON NORMALS: Normal to inspection, nondistended, normoactive bowel sounds present, Soft to palpation, non-tender, No hepatosplenomegaly present, no masses and no bruits PALPATION: Yes Soft to palpation and Yes No hepatosplenomegaly present Extremity: COMMON NORMALS: normal to inspection, full ROM, capillary refill normal, no joint enlargement, no clubbing, cyanosis or edema, no calf tenderness and no pedal edema Neuro: SENSORIUM/ORIENTATION: No lethargic MENINGEAL SIGNS: Yes no meningeal signs Skin: COMMON NORMALS: no rashes or lesions noted, no wounds, turgor normal, no jaundice, no petechiae and no mottling GENERAL SKIN EXAM: no rashes or lesions noted and turgor normal Course Vital Signs: Vital signs: Vital Signs Temperature 98.2 F 04/12/23 12:26 Pulse Rate 140 H 04/12/23 13:30 Respiratory Rate 16 04/12/23 13:30 Blood Pressure 125/99 04/12/23 13:30 Pulse Oximetry 98 04/12/23 13:30 Oxygen Delivery Me thod Room Air 04/12/23 13:30 MDM - Alcohol Medical Decision Making Patient made comfortable emergency room. Patient had extensive work-up including CBC CMP and alcohol level. She was given IV fluid. Discussed lab finding with patient and family at bedside. I was planning to admit patient for further evaluation and treatment. Patient declined admission at this time would like to go home. Patient will be discharged home with family Differential Diagnosis Likely alcohol withdrawal delirium, hypomagnesemia, alcohol intoxication, alcohol ketoacidosis, alcohol withdrawal syndrome and alcohol withdrawal seizure Lab Data 04/12/23 13:41 04/12/23 13:41 Laboratory Results WBC 6.47 10^3/uL (3.29-11.43) 04/12/23 13:41 Corrected WBC Cancelled 04/12/23 13:12 RBC 3.03 10^6/uL (3.85-5.65) L 04/12/23 13:41 Hgb 10.50 g/dL (11.27-16.99) L 04/12/23 13:41 Hct 31.0 % (36-47) L 04/12/23 13:41 MCV 102.3 fl (85-98) H 04/12/23 13:41 MCH 34.7 pg (27-33) H 04/12/23 13:41 MCHC 33.9 g/dL (30-55) 04/12/23 13:41 RDW 14.9 % (12.1-15.1) 04/12/23 13:41 Plt Count 337 10^3/cmm (157-399) 04/12/23 13:41 MPV 9.4 fL (7.4-10.4) 04/12/23 13:41 Gran % Cancelled 04/12/23 13:12 Neut % (Auto) 63.1 % 04/12/23 13:41 Lymph % (Auto) 31.1 % 04/12/23 13:41 Mora % (Auto) 5.1 % 04/12/23 13:41 Eos % (Auto) 0.0 % 04/12/23 13:41 Baso % (Auto) 0.5 % 04/12/23 13:41 Neut # (Auto) 4.09 10^3/uL (1.8-7.7) 04/12/23 13:41 Lymph # (Auto) 2.0 10^3/uL (0.8-4.8) 04/12/23 13:41 Mora # (Auto) 0.3 10^3/uL (0.2-0.9) 04/12/23 13:41 Eos # (Auto) 0.0 10^3/uL (0.0-0.8) 04/12/23 13:41 Baso # (Auto) 0.0 10^3/uL (0.0-0.1) 04/12/23 13:41 Absolute Gran (auto) Cancelled 04/12/23 13:12 Nucleated RBC % (auto) 0 % 04/12/23 13:41 Nucleated RBCs # 0.0 /100WBC 04/12/23 13:41 Sodium 147 mmol/L (136-145) H 04/12/23 13:41 Potassium 3.0 mmol/L (3.5-5.1) L 04/12/23 13:41 Chloride 109 mmol/L (98-107) H 04/12/23 13:41 Carbon Dioxide 23 mmol/L (22-29) 04/12/23 13:41 Anion Gap 18.0 (5-19) 04/12/23 13:41 BUN 1 mg/dL (6-20) L 04/12/23 13:41 Creatinine 0.3 mg/dL (0.5-0.9) L 04/12/23 13:41 GFR Calculation 254.7 mL/min (90-130) H 04/12/23 13:41 Glucose 120 mg/dL (65-115) H 04/12/23 13:41 Calculated Osmolality 301 mOsm/kg (285-295) H 04/12/23 13:41 Calcium 7.3 mg/dL (8.5-10.5) L 04/12/23 13:41 Total Bilirubin 0.4 mg/dL (0.15-1.2) 04/12/23 13:41 AST 113 U/L (0-32) H 04/12/23 13:41 ALT 50 U/L (0-33) H 04/12/23 13:41 Alkaline Phosphatase 215 U/L (35-105) H 04/12/23 13:41 Total Protein 6.2 g/dL (6.6-8.7) L 04/12/23 13:41 Albumin 2.3 g/dL (3.5-5.2) L 04/12/23 13:41 Globulin 3.9 g/dL (1.3-4.6) 04/12/23 13:41 Ethyl Alcohol 407 mg/dL (0-10) H* 04/12/23 13:41 No radiology studies performed this visit Discharge Plan Discharge Patient Disposition: Home Clinical Impression: Transaminitis, Alcoholic intoxication Condition: Stable Prescriptions: No Action ondansetron HCl 4 mg tablet 4 mg PO Q8H PRN (Reason: nausea and vomiting) Qty: 14 0RF omeprazole 20 mg capsule,delayed release(DR/EC) 20 mg PO DAILY gabapentin 300 mg Capsule 300 mg PO BID Qty: 120 2RF folic acid 1 mg Tablet 1 mg PO DAILY Qty: 90 3RF metoprolol tartrate 25 mg Tablet 12.5 mg PO BID@0900,2100 Qty: 60 0RF duloxetine 20 mg Capsule,Delayed Release(Dr/Ec) 20 mg PO BID Qty: 60 3RF thiamine mononitrate (vit B1) [Vitamin B-1 (mononitrate)] 100 mg Tablet 100 mg PO DAILY Qty: 90 2RF potassium chloride 20 mEq tablet extended release 20 meq PO BEDTIME Qty: 30 0RF promethazine 25 mg tablet 25 mg PO QID PRN (Reason: Nausea) Discharge Orders: Discharge ED (Routine); Ordered 04/12/23 Ordered By: Raudel Cobb Referrals: Briseida Sánchez PA [Primary Care Provider] - Discharge Diet: Advance as tolerated Discharge Activity: Resume usual activity Patient Instructions: Opioid Safety, Pain Management Coding Level of Care Code ED Show Card Writer for Thi Chaney
[2023-04-12 14:12] LABS: Alanine Aminotransferase 50 U/L (0-33); Albumin Level 2.3 g/dL (3.5-5.2); Alkaline Phosphatase 215 U/L (35-105); Aspartate Amino Transferase 113 U/L (0-32); Calcium 7.3 mg/dL (8.5-10.5); Carbon Dioxide 23 mmol/L (22-29); Chloride 109 mmol/L (98-107); Globulin 3.9 g/dL (1.3-4.6); Glomerular Filtration Rate 254.7 mL/min (90-130); Glucose 120 mg/dL (65-115); Sodium 147 mmol/L (136-145); Total Bilirubin 0.4 mg/dL (0.15-1.2); Total Protein 6.2 g/dL (6.6-8.7)
[2023-04-12 14:13] LABS: Blood Urea Nitrogen 1 mg/dL (6-20); Osmolality Calculated 301 mOsm/kg (285-295)
[2023-04-12 14:14] LABS: Alcohol Level 407 mg/dL (0-10)
[2023-04-12 15:56] VITALS: BP 125/99; PULSE 140; RESP 16; O2SAT 98
== END 2023-04-12 15:58 | disposition home or self-care (01) ==
PROVIDERS: Emergency Provider Family Medicine; PCP Physician Assistant
DX: F10.129 Alcohol abuse with intoxication, unspecified (principal); R74.01 Elevation of levels of liver transaminase levels; Y90.8 Blood alcohol level of 240 mg/100 ml or more; F17.210 Nicotine dependence, cigarettes, uncomplicated
CPT/HCPCS: 36415; 80053; 80307; 85025; 99283

== ENCOUNTER 2023-06-18 14:14 | Emergency (ER) | payer SELFPAY ==
[2023-06-18 14:25] VITALS: BP 109/76; PULSE 146; RESP 22; TEMP 36.5; O2SAT 100; BMI 2390.2
--- NOTE | 2023-06-18 14:46 | ED_ITS ---
HPI - Extremity Problem 2 General: Chief complaint: Extremity Injury, Lower Stated complaint: pa states blood clots in legs, numbness in hands Time Seen by Provider: 06/18/23 14:24 Source: patient Mode of arrival: wheelchair Limitations: no limitations History of Present Illness: Patient is a 32-year-old female who presents to ED today with a complaint of pain, numbness, and tingling to her bilateral feet and ankles as well as her hands. Patient states this problem has been present at least 6 months but is very tearful as it does not seem to be improving. Patient tells me she has been diagnosed with bilateral blood clots in her feet although I do not see where an ultrasound report or has ever been performed here. She states that was diagnosed here at [facility]. Looking at previous documentation it looks like she told another provider it was diagnosed via ultrasound at [facility]. Usually these ultrasounds were uploaded in our system and the documentation has ever been found where she has been diagnosed with a DVT. While looking at previous documentation she has been told in the past that her neuropathy most likely is secondary to her chronic alcohol use. Patient states she is still drinking daily reporting she drinks approximately 4-5 beers a day. She smells of alcohol upon arrival to the ED. Patient states she cannot walk on her legs secondary to pain and weakness. MD Complaint: extremity pain Onset (ago): month(s) Pain Consistency: constant and intermittent Location: left, right, upper extremity and lower extremity Radiation: none Relieving factors: nothing Exacerbating factors: nothing Associated symptoms: Reports no associated symptoms; Deny chest pain, fever(s) or rash Context: other (chronic alcohol use) Review of Systems 2 Const: Denies: fever(s), chills, body aches, fatigue or malaise Card: Denies: chest pain Resp: Denies: dyspnea GI: Denies: abdominal pain Musc: Reports: extremity pain and muscle weakness; Denies: neck pain, back pain, extremity swelling, joint pain, joint swelling, joint redness, joint warmth, joint stiffness, limited range of motion or muscle cramps Skin/Breast: Denies: rash, pruritus or erythema Neuro: Reports: sensory changes (bilateral feet/hands) and difficulty walking; Denies: headache(s) PFSH ED 2 PFSH: Medical History Alcoholic peripheral neuropathy Sinus tachycardia Hypokalemia 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 Abdominal pain Elevated LFTs Nicotine dependence, cigarettes, with unspecified nicotine-induced disorders PTSD (post-traumatic stress disorder) Depression Surgical History No pertinent past surgical history Family History Other Hypertension Seizure Social History Smoking and tobacco/nicotine status: current every day tobacco/nicotine user cigarettes Packs smoked per day: 1 Alcohol intake: current Alcohol intake frequency: 3 or more drinks per day Alcohol type: beer Substance/Drug Use: current Substance/Drug use frequency: daily Physical Exam 2 Const: COMMON NORMALS: patient oriented x3, no limitations and alert G ENERAL APPEARANCE: cooperative, appears older than stated age and odor of alcohol detected NUTRITIONAL APPEARANCE: thin ORIENTATION/CONSCIOUSNESS: Y es awake, Yes oriented to person, Yes oriented to place and Yes oriented to time Eye: COMMON NORMALS: no scleral icterus Resp: COMMON NORMALS: normal respiratory effort and clear to auscultation bilaterally AUSCULTATION: clear to auscultation bilaterally Cardio: COMMON NORMALS: regular rhythm RATE: tachycardic RHYTHM: regular rhythm GI: COMMON NORMALS: Soft to palpation, non-tender and no masses PALPATION: Yes Soft to palpation Extremity: COMMON NORMALS: full ROM, capillary refill normal, no joint enlargement, no clubbing, cyanosis or edema, no calf tenderness and no pedal edema NARRATIVE EXTREMITY EXAM: atrophy to bilateral LEs; she can raise both extremities off table and flex/extend all myotomes against minimal resistance; she overall is very deconditioned for her age/youth; easily palpable DP/PT pulses; sensation altered; reflexes intact GENERAL: Yes normal exam except as noted Neuro: COMMON NORMALS: patient oriented x3, moves all extremities and no focal motor deficits SENSORIUM/ORIENTATION: Yes alert, Yes oriented to person, Yes oriented to place and Yes oriented to time SPEECH: speech normal Course 2 Vital Signs: Vital signs: Vital Signs Temperature 97.7 F 06/18/23 14:25 Pulse Rate 120 H 06/18/23 16:20 Respiratory Rate 18 06/18/23 16:20 Blood Pressure 123/77 06/18/23 15:12 Pulse Oximetry 99 06/18/23 16:20 Oxygen Delivery Me thod Room Air 06/18/23 16:20 MDM - Extremity (Nontraumatic) Medical Decision Making Patient symptoms most likely are related to an alcohol induced neuropathy although other etiologies for her neuropathy I feel like need to be ruled out or at least discussed with neurology so I will place a case management referral for this. Labs today showing nonspecific derangements to her chemistry most likely from her chronic alcohol use. Potassium was 3.0. She was given potassium supplementation here. She is supposed to be taking potassium at home but has not been. She has also been prescribed thiamine but is also not taking this. Her B12 level here was normal. Thiamine is a send out. Patient in the past is also been prescribed Cymbalta and Gabapentin for her neuropathy but again has not been taking this medication. There is quite a bit of noncompliance from patient. She does not follow-up with primary care well. She does not seem overly motivated to stop drinking. Ultimately at this time patient is stable for discharge from an emergency standpoint. Lab Data 06/18/23 15:48 06/18/23 15:48 Laboratory Results WBC 6.74 10^3/uL (3.29-11.43) 06/18/23 15:48 RBC 3.51 10^6/uL (3.85-5.65) L 06/18/23 15:48 Hgb 11.40 g/dL (11.27-16.99) 06/18/23 15:48 Hct 34.3 % (36-47) L 06/18/23 15:48 MCV 97.7 fl (85-98) 06/18/23 15:48 MCH 32.5 pg (27-33) 06/18/23 15:48 MCHC 33.2 g/dL (30-55) 06/18/23 15:48 RDW 13.2 % (12.1-15.1) 06/18/23 15:48 Plt Count 241 10^3/cmm (157-399) 06/18/23 15:48 MPV 9.8 fL (7.4-10.4) 06/18/23 15:48 Neut % (Auto) 63.6 % 06/18/23 15:48 Lymph % (Auto) 28.5 % 06/18/23 15:48 Bremer % (Auto) 7.4 % 06/18/23 15:48 Eos % (Auto) 0.0 % 06/18/23 15:48 Baso % (Auto) 0.4 % 06/18/23 15:48 Neut # (Auto) 4.28 10^3/uL (1.8-7.7) 06/18/23 15:48 Lymph # (Auto) 1.9 10^3/uL (0.8-4.8) 06/18/23 15:48 Bremer # (Auto) 0.5 10^3/uL (0.2-0.9) 06/18/23 15:48 Eos # (Auto) 0.0 10^3/uL (0.0-0.8) 06/18/23 15:48 Baso # (Auto) 0.0 10^3/uL (0.0-0.1) 06/18/23 15:48 Nucleated RBC % (auto) 0 % 06/18/23 15:48 Nucleated RBCs # 0.0 /100WBC 06/18/23 15:48 Sodium 138 mmol/L (136-145) 06/18/23 15:48 Potassium 3.0 mmol/L (3.5-5.1) L 06/18/23 15:48 Chloride 103 mmol/L (98-107) 06/18/23 15:48 Carbon Dioxide 23 mmol/L (22-29) 06/18/23 15:48 Anion Gap 15.0 (5-19) 06/18/23 15:48 BUN 2 mg/dL (6-20) L 06/18/23 15:48 Creatinine 0.4 mg/dL (0.5-0.9) L 06/18/23 15:48 GFR Calculation 182.7 mL/min (90-130) H 06/18/23 15:48 Glucose 96 mg/dL (65-115) 06/18/23 15:48 Calculated Osmolality 282 mOsm/kg (285-295) L 06/18/23 15:48 Calcium 7.8 mg/dL (8.5-10.5) L 06/18/23 15:48 Total Bilirubin 0.5 mg/dL (0.15-1.2) 06/18/23 15:48 AST 40 U/L (0-32) H 06/18/23 15:48 ALT 23 U/L (0-33) 06/18/23 15:48 Alkaline Phosphatase 116 U/L (35-105) H 06/18/23 15:48 Total Protein 5.5 g/dL (6.6-8.7) L 06/18/23 15:48 Albumin 2.1 g/dL (3.5-5.2) L 06/18/23 15:48 Globulin 3.4 g/dL (1.3-4.6) 06/18/23 15:48 Vitamin B12 1039 pg/mL (232-1245) 06/18/23 15:48 No radiology studies performed this visit Discharge Plan Discharge Patient Disposition: Home Clinical Impression: Alcoholic peripheral neuropathy Condition: Stable Prescriptions: New gabapentin 300 mg capsule 300 mg PO DAILY Qty: 60 0RF Rx Instructions: Take 300mg PO QD x 1 day, then 300mg PO BID x 1 day, then 300mg PO TID thereafter Continued Vitamin B-1 (mononitrate) 100 mg Tablet 100 mg PO DAILY Qty: 90 2RF Changed potassium chloride 20 mEq tablet extended release 40 meq PO BEDTIME Qty: 14 0RF No Action ondansetron HCl 4 mg tablet 4 mg PO Q8H PRN (Reason: nausea and vomiting) Qty: 14 0RF promethazine 25 mg tablet 25 mg PO QID PRN (Reason: Nausea) Discharge Orders: Discharge ED (Routine); Ordered 06/18/23 Ordered By: Prudence Garcia Referrals: Briseida Sánchez PA [Primary Care Provider] - Patient Instructions: Abuse of Alcohol (DC), Peripheral Neuropathy Activity Restrictions/Additional Instructions: As we discussed I highly suspect your neuropathy is related to your chronic alcohol abuse however I have placed a referral to neurology for further evaluation as certainly there are other etiologies that can cause similar neuropathy pains. We discussed placing you back on your gabapentin as you feel this has previously helped. I will provide you a prescription for potassium supplements as your potassium was mildly low here. We will also place you back on thiamine which is a vitamin that often times is depleted and chronic drinkers. We discussed at great length the need for you to seek medical help in rehabilitation for your alcohol abuse. Ultimately this is a personal choice that you need to make for yourself. Coding Level of Care Code ED Shredded Filler Cutter Operator for Thi Chaney
[2023-06-18 15:12] VITALS: BP 123/77; PULSE 110; RESP 18; O2SAT 99
[2023-06-18 15:51] LABS: Basophils % 0.4 %; Hematocrit 34.3 % (36-47); Lymphocytes # 1.9 10^3/uL (0.8-4.8); Lymphocytes % 28.5 %; Mean Corpuscular HGB Conc 33.2 g/dL (30-55); Mean Corpuscular Hemoglobin 32.5 pg (27-33); Mean Corpuscular Volume 97.7 fl (85-98); Mean Platelet Volume 9.8 fL (7.4-10.4); Monocytes # 0.5 10^3/uL (0.2-0.9); Monocytes % 7.4 %; Neutrophils # 4.28 10^3/uL (1.8-7.7); Neutrophils % 63.6 %; Nucleated Red Blood Cells % 0 %; Platelet Count 241 10^3/cmm (157-399); Red Blood Count 3.51 10^6/uL (3.85-5.65); Red Cell Distribution Width 13.2 % (12.1-15.1); White Blood Count 6.74 10^3/uL (3.29-11.43)
[2023-06-18 16:20] VITALS: PULSE 120; RESP 18; O2SAT 99
[2023-06-18 16:27] LABS: Alanine Aminotransferase 23 U/L (0-33); Albumin Level 2.1 g/dL (3.5-5.2); Alkaline Phosphatase 116 U/L (35-105); Aspartate Amino Transferase 40 U/L (0-32); Blood Urea Nitrogen 2 mg/dL (6-20); Calcium 7.8 mg/dL (8.5-10.5); Carbon Dioxide 23 mmol/L (22-29); Chloride 103 mmol/L (98-107); Globulin 3.4 g/dL (1.3-4.6); Glomerular Filtration Rate 182.7 mL/min (90-130); Glucose 96 mg/dL (65-115); Osmolality Calculated 282 mOsm/kg (285-295); Sodium 138 mmol/L (136-145); Total Bilirubin 0.5 mg/dL (0.15-1.2); Total Protein 5.5 g/dL (6.6-8.7)
[2023-06-18] MEDS: potassium chloride ER 20 mEq Tablet 60 MEQ PO (16:40)
[2023-06-18 16:43] LABS: Vitamin B12 1039 pg/mL (232-1245)
--- NOTE | 2023-06-19 07:47 | DCPLANNER ---
Message sent to Neurology for a follow up- Peripheral Neuropathy.
[2023-06-22 13:24] LABS: Vitamin B1 (Thiamine),Blood 94 nmol/L (78-185)
== END 2023-06-18 16:47 | disposition home or self-care (01) ==
PROVIDERS: Emergency Provider Physician Assistant; PCP Physician Assistant
DX: G62.1 Alcoholic polyneuropathy (principal); F17.210 Nicotine dependence, cigarettes, uncomplicated
CPT/HCPCS: 80053; 82607; 84425; 85025; 99283

== ENCOUNTER 2023-10-05 16:09 | Emergency (ER) | payer SELFPAY ==
[2023-10-05 16:19] VITALS: BMI 17.4
[2023-10-05 16:20] VITALS: BP 98/62; PULSE 117; RESP 17; TEMP 36.9; O2SAT 98
[2023-10-05 17:04] LABS: ABG PH Result 7.39 (7.35-7.45); Blood Gas Operator Identificat AMH; Blood Gas Sample Site Brachial, left; Blood Gas Sample Type Arterial; Ionized Calcium Level - ABG 1.2 mmol/L (1.1-1.4); Oxygen Device ROOM AIR; PO2 FiO2 Ratio Arterial Blood 0; Potassium Level - ABG 3.4 mmol/L (3.5-5.0)
[2023-10-05 17:05] LABS: ABG PCO2 30.6 mmHg (35-45); Alveolar-Arterial Oxygen Gradi 0.6 mmHg (5-10); Arterial Blood Gas Hematocrit 37.3 % (37-47); Base Excess ABG -5.5 mmol/L (-2.0-2.0); Carboxyhemoglobin 5.1 %THgb (0.4-20.1); HCO3 ABG 18.5 mmol/L (22-26); HGB O2 Sat 92.8 % (95-100); Methemoglobin 0.8 % (0.4-1.5); Oxygen Saturation ABG 98.8; Total Hemoglobin 12.2 g/dL (12-16)
[2023-10-05 17:20] VITALS: BP 115/85; PULSE 80; RESP 16; O2SAT 95
[2023-10-05 18:00] VITALS: BP 135/69; PULSE 68; RESP 16; O2SAT 98
--- NOTE | 2023-10-05 18:05 | ED_ITS ---
HPI - Extremity Problem General: Chief complaint: Extremity Problem,Nontraumatic Stated complaint: both leg pains, numb Time Seen by Provider: 10/05/23 17:17 History of Present Illness: 32-year-old female presents emergency de partment stating that she has burning and tingling to her bilateral lower legs for the previous 1 year. She states that she is unable to use her legs although she is moving them without difficulty. She states that she has been here to the emergency department several times and no one has found any significant cause of her neuropathy. She states she has not seen a neurologist, but then states that she has seen Dr. Daley who is a neurologist here at this facility. She denies bowel or bladder incontinence or retention. She states she has been told in the past that her neuropathy is chronic and excess alcohol use and she states she is not ready to quit drinking at present. She is able to stand and ambulate without difficulty. 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 Abdominal pain Elevated LFTs Nicotine dependence, cigarettes, with unspecified nicotine-induced disorders PTSD (post-traumatic stress disorder) Depression Surgical History No pertinent past surgical history Family History Other Hypertension Seizure Social History Smoking and tobacco/nicotine status: current every day tobacco/nicotine user cigarettes Packs smoked per day: 1 Alcohol intake: current Alcohol intake frequency: 3 or more drinks per day Alcohol type: beer Substance/Drug Use: current Substance/Drug use frequency: daily Physical Exam Narrative: EXAM NARRATIVE: Constitutional: the patient appears well nourished and with normal development. Vital signs reviewed as documented. She does endorse to drinking several alcoholic beverages throughout the day today. HENMT: Normocephalic, atraumatic. External ears normal appearance without drainage. Nose without drainage, normal appearance. Mucus membranes moist. Neck is supple, No jugular venous distension, trachea is midline, no appreciable carotid bruits. No lymphadenopathy. No meningeal signs. Flexion, extension and lateral rotation is without pain. Eyes: Pupils are equal, round, reactive to light and accommodation. No scleral icterus. Extra-ocular movement are intact. Thorax is symmetrical and with equal rise and fall with respirations. Resp: Lungs are clear to auscultation. No wheezes, rales, crackles or ronchi at present. Cardio: Regular rate and rhythm. Positive S1, S2. No appreciable murmurs, rubs or gallops. GI: Abdominal exam reveals normal bowel sounds to all quadrants. No organomegaly. No obvious palpable masses noted. No hepatomegally appreciated. Soft, non-tender to palpation. Extremity: Extremities are non-edematous and both femoral and pedal pulses are 2+ and equal bilaterally. Moves all extremities well, sensation in all extremities. Neuro: Alert and oriented x4, person, place, time and situation. Cranial nerves II through XII are grossly intact, there is no focal neurological deficits that I can appreciate at present. Sensation intact to all extremities. 2-point discrimination intact. Light touch intact to all extremities. Motor strength in the upper and lower extremities are equal and bilateral 5/5. Psych: Cooperative, calm, normal thought process, appropriate judgment. Skin: No lesions, rashes. No gross abnormalities noted. Back: Symmetrical, no obvious deformity, No CVA tenderness Course Vital Signs: Vital signs: Vital Signs Temperature 98.5 F 10/05/23 16:20 Pulse Rate 68 10/05/23 18:00 Respiratory Rate 16 10/05/23 18:00 Blood Pressure 135/69 10/05/23 18:00 Pulse Oximetry 98 10/05/23 18:00 Oxygen Delivery Me thod Room Air 10/05/23 18:00 MDM - Extremity (Nontraumatic) Medical Decision Making Physical exam completed and documented, I did obtain an ABG to evaluate the patient's hypoventilation syndrome. I did an extensive review of the patient's previous medical records and it does appear that she has longstanding peripheral neuropathy possibly secondary to alcohol abuse/use. I did discuss the risk and complications of continued alcohol abuse and did offer the patient information regarding alcohol and substance abuse counseling and treatment and she stated that she is not interested in abstaining from alcohol at this time. Medical Records I reviewed the patient's medical records. Lab Data I reviewed the patient's lab results. Laboratory Results Specimen Type Arterial 10/05/23 16:52 Sample Site Brachial, left 10/05/23 16:52 ABG pH 7.39 (7.35-7.45) 10/05/23 16:52 ABG pCO2 30.6 mmHg (35-45) L 10/05/23 16:52 ABG pO2 105.0 mmHg (80.0-100.0) H 10/05/23 16:52 ABG PO2/FiO2 Ratio 0 10/05/23 16:52 ABG HCO3 18.5 mmol/L (22-26) L 10/05/23 16:52 ABG O2 Saturation 98.8 10/05/23 16:52 ABG Base Excess -5.5 mmol/L (-2.0-2.0) L 10/05/23 16:52 Taqueria Test N/a 10/05/23 16:52 A-a O2 Gradient 0.6 mmHg (5-10) L 10/05/23 16:52 Hematocrit 37.3 % (37-47) 10/05/23 16:52 Hgb O2 Saturation 92.8 % (95-100) L 10/05/23 16:52 Carboxyhemoglobin 5.1 %THgb (0.4-20.1) 10/05/23 16:52 Methemoglobin 0.8 % (0.4-1.5) 10/05/23 16:52 Total Hemoglobin 12.2 g/dL (12-16) 10/05/23 16:52 Sodium 139.0 mmol/L (131-143) 10/05/23 16:52 Potassium 3.4 mmol/L (3.5-5.0) L 10/05/23 16:52 Glucose 90.0 mg/dL (70-115) 10/05/23 16:52 Ionized Calcium 1.2 mmol/L (1.1-1.4) 10/05/23 16:52 O2 Delivery Device Room air 10/05/23 16:52 FiO2 21.0 % 10/05/23 16:52 Insurance Agency Manager ID [facility] 10/05/23 16:52 No radiology studies performed this visit Discharge Plan Discharge Patient Disposition: Home Clinical Impression: Neuropathy Condition: Stable Prescriptions: No Action ondansetron HCl 4 mg tablet 4 mg PO Q8H PRN (Reason: nausea and vomiting) Qty: 14 0RF promethazine 25 mg tablet 25 mg PO QID PRN (Reason: Nausea) gabapentin 300 mg capsule 300 mg PO DAILY Qty: 60 0RF Rx Instructions: Take 300mg PO QD x 1 day, then 300mg PO BID x 1 day, then 300mg PO TID thereafter Vitamin B-1 (mononitrate) 100 mg Tablet 100 mg PO DAILY Qty: 90 2RF potassium chloride 20 mEq tablet extended release 40 meq PO BEDTIME Qty: 14 0RF Discharge Orders: Discharge ED (Routine); Ordered 10/05/23 Ordered By: Keanu Hernandez Referrals: Briseida Sánchez PA [Primary Care Provider] - Discharge Diet: Usual diet Discharge Activity: Resume usual activity Patient Instructions: Opioid Safety, Pain Management Activity Restrictions/Additional Instructions: Activity Restrictions/Additional Instructions: Thank you for choosing [facility] for your healthcare needs today. Please realize that you were seen in the Emergency Department and that we are providing you with an emergency medical screening exam and this may not be a complete and all inclusive of all the testing and or medical work-up that you may need to determine your ailment or severity of your illness. It is very important that you follow-up as instructed with your Primary care provider or Specialist for additional evaluation and to discuss your medical treatment plan. Coding Level of Care Code ED Sqe for Thi Chaney
== END 2023-10-05 18:23 | disposition home or self-care (01) ==
PROVIDERS: Family Medicine; Emergency Provider Internal Medicine; PCP Physician Assistant
DX: G62.9 Polyneuropathy, unspecified (principal); F17.210 Nicotine dependence, cigarettes, uncomplicated
CPT/HCPCS: 36600; 80051; 82330; 82805; 99283

== ENCOUNTER 2023-10-28 23:34 | Emergency (ER) | payer SELFPAY ==
[2023-10-28 23:36] VITALS: BP 122/90; PULSE 98; RESP 18; TEMP 36.8; O2SAT 96; BMI 18.3
--- NOTE | 2023-10-29 00:44 | W.ED.EXTPRO ---
HPI - Extremity Problem General: Chief complaint: Extremity Problem,Nontraumatic Stated complaint: leg pain Time Seen by Provider: 10/28/23 23:40 History of Present Illness: Patient presents to the ER with complains of burning achy pain from the knees down in both of her legs. This been going on for multiple months probably 6 or 7. Patient is been in ER multiple times they just keep telling its her neuropathy secondary to her alcohol use. Patient does admit to drinking alcohol every day but says is only 1 or 2 drinks a day. So this should not be causing this problem. Patient is never been followed up for PCP or neurologist for visits. 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 Abdominal pain Elevated LFTs Nicotine dependence, cigarettes, with unspecified nicotine-induced disorders PTSD (post-traumatic stress disorder) Depression Surgical History No pertinent past surgical history Family History Other Hypertension Seizure Social History Smoking and tobacco/nicotine status: current every day tobacco/nicotine user cigarettes Packs smoked per day: 1 Alcohol intake: current Alcohol intake frequency: 3 or more drinks per day Alcohol type: beer Substance/Drug Use: current Substance/Drug use frequency: daily Physical Exam Const: COMMON NORMALS: no acute distress, average body habitus, patient oriented x3, no limitations, healthy appearing, alert and well nourished HENMT: COMMON NORMALS: normocephalic, atraumatic, hearing grossly normal bilaterally, external ears normal, Normal external nose present, moist oral mucous membranes and oropharynx normal HEAD & SCALP: normocephalic and atraumatic NOSE: Normal external nose present EXTERNAL EAR: Yes external ears normal Neck/C-Spine: COMMON NORMALS: no JVD Chest: COMMONS NORMALS: normal inspection of the chest and normal palpation of entire chest wall Resp: COMMON NORMALS: normal respiratory effort, No retractions, No use of accessory muscles and clear to auscultation bilaterally AUSCULTATION: clear to auscultation bilaterally Cardio: COMMON NORMALS: no JVD, regular rate, regular rhythm, S1 normal heart sound present, S2 normal heart sound present, No gallops present (Cardio), No clicks present (Cardio) and No murmurs present (Cardio) RATE: regular rate RHYTHM: regular rhythm HEART SOUNDS: S1 normal heart sound present and S2 normal heart sound present GI: COMMON NORMALS: Normal to inspection, nondistended, normoactive bowel sounds present, Soft to palpation, non-tender, No hepatosplenomegaly present and no masses PALPATION: Yes Soft to palpation and Yes No hepatosplenomegaly present Neuro: COMMON NORMALS: patient oriented x3 SENSORIUM/ORIENTATION: Yes alert Course Vital Signs: Vital signs: Vital Signs Temperature 98.3 F 10/28/23 23:36 Pulse Rate 98 10/28/23 23:36 Respiratory Rate 18 10/28/23 23:36 Blood Pressure 122/90 10/28/23 23:36 Pulse Oximetry 96 10/28/23 23:36 Oxygen Delivery Me thod Room Air 10/28/23 23:36 MDM - Extremity (Nontraumatic) Medical Decision Making Lab work was obtained which was essentially benign except hemoglobin 10.6 and a blood alcohol of 332, patient will be discharged home to follow-up with her PCP for alcoholism and alcoholic neuropathy. Differential Diagnosis Unlikely herpes zoster, gout, cellulitis, superficial thrombophlebitis, deep venous thrombosis of upper extremity, lower extremity edema or deep vein thrombosis of lower extremity Medical Records I reviewed the patient's medical records. Lab Data I reviewed the patient's lab results. 10/29/23 00:50 10/29/23 00:50 Laboratory Results WBC 9.03 10^3/uL (3.29-11.43) 10/29/23 00:50 RBC 3.00 10^6/uL (3.85-5.65) L 10/29/23 00:50 Hgb 10.60 g/dL (11.27-16.99) L 10/29/23 00:50 Hct 31.7 % (36-47) L 10/29/23 00:50 MCV 105.7 fl (85-98) H 10/29/23 00:50 MCH 35.3 pg (27-33) H 10/29/23 00:50 MCHC 33.4 g/dL (30-55) 10/29/23 00:50 RDW 15.0 % (12.1-15.1) 10/29/23 00:50 Plt Count 213 10^3/cmm (157-399) 10/29/23 00:50 MPV 9.3 fL (7.4-10.4) 10/29/23 00:50 Neut % (Auto) 48.7 % 10/29/23 00:50 Lymph % (Auto) 44.1 % 10/29/23 00:50 [place] % (Auto) 6.2 % 10/29/23 00:50 Eos % (Auto) 0.1 % 10/29/23 00:50 Baso % (Auto) 0.8 % 10/29/23 00:50 Neut # (Auto) 4.40 10^3/uL (1.8-7.7) 10/29/23 00:50 Lymph # (Auto) 4.0 10^3/uL (0.8-4.8) 10/29/23 00:50 [place] # (Auto) 0.6 10^3/uL (0.2-0.9) 10/29/23 00:50 Eos # (Auto) 0.0 10^3/uL (0.0-0.8) 10/29/23 00:50 Baso # (Auto) 0.1 10^3/uL (0.0-0.1) 10/29/23 00:50 Nucleated RBC % (auto) 0 % 10/29/23 00:50 Nucleated RBCs # 0.0 /100WBC 10/29/23 00:50 Sodium 140 mmol/L (136-145) 10/29/23 00:50 Potassium 3.5 mmol/L (3.5-5.1) 10/29/23 00:50 Chloride 103 mmol/L (98-107) 10/29/23 00:50 Carbon Dioxide 24 mmol/L (22-29) 10/29/23 00:50 Anion Gap 16.5 (5-19) 10/29/23 00:50 BUN 4 mg/dL (6-20) L 10/29/23 00:50 Creatinine 0.3 mg/dL (0.5-0.9) L 10/29/23 00:50 GFR Calculation 254.7 mL/min (90-130) H 10/29/23 00:50 Glucose 98 mg/dL (65-115) 10/29/23 00:50 Calculated Osmolality 287 mOsm/kg (285-295) 10/29/23 00:50 Calcium 8.5 mg/dL (8.5-10.5) 10/29/23 00:50 Magnesium 1.6 mg/dL (1.7-2.3) L 10/29/23 00:50 Total Bilirubin 0.5 mg/dL (0.15-1.2) 10/29/23 00:50 AST 152 U/L (0-32) H 10/29/23 00:50 ALT 64 U/L (0-33) H 10/29/23 00:50 Alkaline Phosphatase 150 U/L (35-105) H 10/29/23 00:50 C-Reactive Protein 3.0 mg/L (0.0-4.9) 10/29/23 00:50 Total Protein 7.1 g/dL (6.6-8.7) 10/29/23 00:50 Albumin 3.3 g/dL (3.5-5.2) L 10/29/23 00:50 Globulin 3.8 g/dL (1.3-4.6) 10/29/23 00:50 Ethyl Alcohol 332 mg/dL (0-10) H* 10/29/23 00:50 All radiology interpretation(s) finalized by discharge Discharge Plan Discharge Patient Disposition: Home Clinical Impression: Alcoholic peripheral neuropathy Alcohol intoxication Qualifiers: Complication of substance-induced condition: uncomplicated Qualified Code(s): F10.920 - Alcohol use, unspecified with intoxication, uncomplicated Condition: Stable Prescriptions: No Action ondansetron HCl 4 mg tablet 4 mg PO Q8H PRN (Reason: nausea and vomiting) Qty: 14 0RF promethazine 25 mg tablet 25 mg PO QID PRN (Reason: Nausea) gabapentin 300 mg capsule 300 mg PO DAILY Qty: 60 0RF Rx Instructions: Take 300mg PO QD x 1 day, then 300mg PO BID x 1 day, then 300mg PO TID thereafter Vitamin B-1 (mononitrate) 100 mg Tablet 100 mg PO DAILY Qty: 90 2RF potassium chloride 20 mEq tablet extended release 40 meq PO BEDTIME Qty: 14 0RF Discharge Orders: Discharge ED (Routine); Ordered 10/29/23 Ordered By: Saurav Adkins Referrals: Briseida Sánchez PA [Primary Care Provider] - 7-10 days Patient Instructions: Alcohol Intoxication, Peripheral Neuropathy (ED) Activity Restrictions/Additional Instructions: Please cut back on your alcohol or stop altogether. Please follow-up with your family practice physician for further evaluation and treatment of your neuropathy. Coding Level of Care Code ED Meat Department 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
[2023-10-29 01:01] LABS: Basophils # 0.1 10^3/uL (0.0-0.1); Basophils % 0.8 %; Eosinophils % 0.1 %; Hematocrit 31.7 % (36-47); Lymphocytes % 44.1 %; Mean Corpuscular HGB Conc 33.4 g/dL (30-55); Mean Corpuscular Hemoglobin 35.3 pg (27-33); Mean Corpuscular Volume 105.7 fl (85-98); Mean Platelet Volume 9.3 fL (7.4-10.4); Monocytes # 0.6 10^3/uL (0.2-0.9); Monocytes % 6.2 %; Neutrophils % 48.7 %; Nucleated Red Blood Cells % 0 %; Platelet Count 213 10^3/cmm (157-399); White Blood Count 9.03 10^3/uL (3.29-11.43)
[2023-10-29 01:22] LABS: Alanine Aminotransferase 64 U/L (0-33); Albumin Level 3.3 g/dL (3.5-5.2); Alkaline Phosphatase 150 U/L (35-105); Anion Gap 16.5 (5-19); Aspartate Amino Transferase 152 U/L (0-32); Blood Urea Nitrogen 4 mg/dL (6-20); Calcium 8.5 mg/dL (8.5-10.5); Carbon Dioxide 24 mmol/L (22-29); Chloride 103 mmol/L (98-107); Creatinine Clr Calc Pharmacy 185.0187; Globulin 3.8 g/dL (1.3-4.6); Glomerular Filtration Rate 254.7 mL/min (90-130); Glucose 98 mg/dL (65-115); Magnesium 1.6 mg/dL (1.7-2.3); Osmolality Calculated 287 mOsm/kg (285-295); Potassium 3.5 mmol/L (3.5-5.1); Sodium 140 mmol/L (136-145); Total Bilirubin 0.5 mg/dL (0.15-1.2); Total Protein 7.1 g/dL (6.6-8.7)
[2023-10-29 01:26] LABS: Alcohol Level 332 mg/dL (0-10)
[2023-10-29 01:49] VITALS: BP 100/69; PULSE 97; RESP 14; O2SAT 96
[2023-10-29] MEDS: acetaminophen 500 mg Tablet 1000 MG PO (02:04)
[2023-10-29 02:16] VITALS: BP 100/59; PULSE 89; RESP 18; O2SAT 98
== END 2023-10-29 02:18 | disposition home or self-care (01) ==
PROVIDERS: Emergency Provider Emergency Medicine; PCP Physician Assistant
DX: G62.1 Alcoholic polyneuropathy (principal); F10.920 Alcohol use, unspecified with intoxication, uncomplicated; F17.210 Nicotine dependence, cigarettes, uncomplicated; Y90.8 Blood alcohol level of 240 mg/100 ml or more
CPT/HCPCS: 80053; 80307; 83735; 85025; 86140; 99283

== ENCOUNTER 2024-03-22 14:10 | Emergency (ER) | payer SELFPAY ==
[2024-03-22 14:24] VITALS: BP 99/76; PULSE 130; RESP 16; TEMP 36.8; O2SAT 96
--- NOTE | 2024-03-22 15:36 | ED_ITS ---
Documented by User: Mayra Hall MD 03/22/24 15:37 HPI - Nausea/Vomiting/Diarrhea 2 General: Chief complaint: Nausea/Vomiting/Diarrhea Stated complaint: Vomiting blood, leg pain and numbness Time Seen by Provider: 03/22/24 15:25 History of Present Illness: 33-year-old female who presents to the e mergency room after having episodes of vomiting yesterday. She says at 1 point there was blood mixed into the vomit and this concerned her. She says she is always anemic. Blood pressure soft in her heart rates little tachycardic on presentation. She says she feels fine. No lightheadedness. No abdominal pain. No vomiting today. No fevers. No chest pain. No shortness of breath. She says she does feel a little sore in her throat when she swallows today. Related Data Home Medications Medication Instructions Recorded Confirmed promethazine 25 mg tablet 25 mg PO QID PRN Nausea 04/12/23 06/18/23 Previous Rx's Medication Instructions Recorded gabapentin 300 mg capsule 300 mg PO DAILY #60 caps 06/18/23 potassium chloride 20 mEq 40 meq (2 x 20 mEq) PO BEDTIME #14 06/18/23 tablet,extended release tabs thiamine mononitrate (vit B1) 100 100 mg PO DAILY #90 tabs 06/18/23 mg tablet (Vitamin B-1 (mononitrate)) ondansetron HCl 4 mg tablet 4 mg PO Q8H PRN nausea and 03/22/24 vomiting #14 tabs Allergies Allergy/AdvReac Type Severity Reaction Status Date / Time haloperidol [From Haldol] AdvReac Mild swallowed Verified 03/22/24 14:30 tongue and couldn't move legs Review of Systems 2 Narrative: General: Alert, no acute distress. Skin: Warm, dry. Head: Normocephalic, atraumatic. Neck: Supple, trachea midline. Eye: Extraocular movements are intact. Ears, nose, mouth and throat: mucosa moist. Cardiovascular: Regular, Normal peripheral perfusion. Respiratory: Lungs are clear to auscultation, respirations are non-labored, breath sounds are equal, Symmetrical chest wall expansion. Gastrointestinal: Soft, Nontender, Non distended Musculoskeletal: Normal ROM, no deformity. Neurological: Alert and oriented, No focal neurological deficit observed. Psychiatric: Cooperative, appropriate mood & affect. 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 Abdominal pain Elevated LFTs Nicotine dependence, cigarettes, with unspecified nicotine-induced disorders PTSD (post-traumatic stress disorder) Depression Surgical History No pertinent past surgical history Family History Other Hypertension Seizure Social History Smoking and tobacco/nicotine status: current every day tobacco/nicotine user cigarettes Packs smoked per day: 1 Alcohol intake: current Alcohol intake frequency: 3 or more drinks per day Alcohol type: beer Substance/Drug Use: current Substance/Drug use frequency: daily Physical Exam 2 Narrative: EXAM NARRATIVE: General: Alert, no acute distress. Skin: Warm, dry. Head: Normocephalic, atraumatic. Neck: Supple, trachea midline. Eye: Extraocular movements are intact. Ears, nose, mouth and throat: mucosa moist. Cardiovascular: Regular, tachycardic, normal peripheral perfusion. Respiratory: Lungs are clear to auscultation, respirations are non-labored, breath sounds are equal, Symmetrical chest wall expansion. Gastrointestinal: Soft, Nontender, Non distended Musculoskeletal: Normal ROM, no deformity. Neurological: Alert and oriented, No focal neurological deficit observed. Psychiatric: Cooperative, appropriate mood & affect. Course 2 Vital Signs: Vital signs: Vital Signs Temperature 98.3 F 03/22/24 14:24 Pulse Rate 121 H 03/22/24 18:18 Respiratory Rate 15 03/22/24 18:18 Blood Pressure 100/82 03/22/24 18:18 Pulse Oximetry 99 03/22/24 18:18 Oxygen Delivery Me thod Room Air 03/22/24 14:24 MDM - Nausea/Vomiting/Diarrhea Medical Decision Making Medical decision making: Differential diagnosis for this patient with nausea and vomiting including but not limited to and based on the above HPI, review of systems and physical exam: Urinary tract infection. Appendicitis. Cholecystis. colitis. small bowel obstruction. crohn's flare. pancreatitis. gastritis. peptic ulcer. cyclic vomiting. Viral illness. Influenza. COVID. - Workup - labwork and imaging ordered to evaluate, rule in and rule out above pathologies. Lab Review: Laboratory results were reviewed and interpreted by myself the emergency room physician. I reviewed the patient's medical record. Reexamination: Lab Data 03/22/24 17:03/22/24 17: Laboratory Results WBC 8.81 10^3/uL (3.29-11.43) 03/22/24 17: RBC 3.66 10^6/uL (3.85-5.65) L 03/22/24 17: Hgb 12.50 g/dL (11.27-16.99) 03/22/24 17: Hct 37.1 % (36-47) 03/22/24 17: MCV 101.4 fl (85-98) H 03/22/24 17: MCH 34.2 pg (27-33) H 03/22/24 17: MCHC 33.7 g/dL (30-55) 03/22/24 17: RDW 13.4 % (12.1-15.1) 03/22/24 17: Plt Count 169 10^3/cmm (157-399) 03/22/24 17: MPV 10.2 fL (7.4-10.4) 03/22/24 17: Neut % (Auto) 58.7 % 03/22/24 17: Lymph % (Auto) 34.7 % 03/22/24 17: Real % (Auto) 6.1 % 03/22/24 17: Eos % (Auto) 0.0 % 03/22/24 17: Baso % (Auto) 0.3 % 03/22/24 17:28 Neut # (Auto) 5.16 10^3/uL (1.8-7.7) 03/22/24 17: Lymph # (Auto) 3.1 10^3/uL (0.8-4.8) 03/22/24 17: Real # (Auto) 0.5 10^3/uL (0.2-0.9) 03/22/24 17:28 Eos # (Auto) 0.0 10^3/uL (0.0-0.8) 03/22/24 17:28 Baso # (Auto) 0.0 10^3/uL (0.0-0.1) 03/22/24 17:28 Nucleated RBC % (auto) 0 % 03/22/24 17:28 Nucleated RBCs # 0.0 /100WBC 03/22/24 17:28 PT 11.70 SECONDS (12.1-14.9) L 03/22/24 17:28 INR 0.83 (0.8-1.2) 03/22/24 17:28 Sodium 135 mmol/L (136-145) L 03/22/24 17:28 Potassium 3.8 mmol/L (3.5-5.1) 03/22/24 17:28 Chloride 98 mmol/L (98-107) 03/22/24 17: Carbon Dioxide 19 mmol/L (22-29) L 03/22/24 17:28 Anion Gap 21.8 (5-19) H 03/22/24 17:28 BUN 9 mg/dL (6-20) 03/22/24 17:28 Creatinine 0.5 mg/dL (0.5-0.9) 03/22/24 17:28 GFR Calculation 140.4 mL/min (90-130) H 03/22/24 17:28 Glucose 96 mg/dL (65-115) 03/22/24 17:28 Calculated Osmolality 279 mOsm/kg (285-295) L 03/22/24 17:28 Calcium 8.6 mg/dL (8.5-10.5) 03/22/24 17:28 Total Bilirubin 0.5 mg/dL (0.15-1.2) 03/22/24 17:28 AST 112 U/L (0-32) H 03/22/24 17:28 ALT 102 U/L (0-33) H 03/22/24 17:28 Alkaline Phosphatase 135 U/L (35-105) H 03/22/24 17:28 Total Protein 7.2 g/dL (6.6-8.7) 03/22/24 17:28 Albumin 3.9 g/dL (3.5-5.2) 03/22/24 17:28 Globulin 3.3 g/dL (1.3-4.6) 03/22/24 17:28 Urine Color Dark yellow (Yellow) A 03/22/24 17:29 Urine Appearance Clear (CLEAR) 03/22/24 17: Urine pH 6.0 (5-7) 03/22/24 17:29 Ur Specific [place] 1.023 (1.005-1.030) 03/22/24 17:29 Urine Protein 3+ (Negative) A 03/22/24 17:29 Urine Glucose (UA) Negative (Normal) 03/22/24 17: Urine Ketones 2+ (Negative) H 03/22/24 17: Urine Blood Negative (Negative) 03/22/24 17: Urine Nitrate Negative (Negative) 03/22/24 17: Urine Bilirubin Negative (Negative) 03/22/24 17: Urine Urobilinogen 1.0 mg/dL (Negative) 03/22/24 17: Ur Leukocyte Esterase 1+ (Negative) A 03/22/24 17:29 Urine RBC 0-2 /hpf (0-2) 03/22/24 17:29 Urine WBC 0-5 /hpf (0-5) 03/22/24 17:29 Ur Squamous Epith Cells 11-20 /hpf (0-5) 03/22/24 17: Amorphous Sediment Not Reportable 03/22/24 17: Urine Bacteria Trace /hpf (NONE) 03/22/24 17: Hyaline Casts 6.20 /lpf 03/22/24 17:29 Discharge Plan Discharge Patient Disposition: Home Clinical Impression: Vomiting Qualifiers: Vomiting type: unspecified Nausea presence: with nausea Qualified Code(s): R 11.2 - Nausea with vomiting, unspecified Condition: Stable Prescriptions: Continued ondansetron HCl 4 mg tablet 4 mg PO Q8H PRN (Reason: nausea and vomiting) Qty: 14 0RF No Action promethazine 25 mg tablet 25 mg PO QID PRN (Reason: Nausea) gabapentin 300 mg capsule 300 mg PO DAILY Qty: 60 0RF Rx Instructions: Take 300mg PO QD x 1 day, then 300mg PO BID x 1 day, then 300mg PO TID thereafter Vitamin B-1 (mononitrate) 100 mg Tablet 100 mg PO DAILY Qty: 90 2RF potassium chloride 20 mEq tablet extended release 40 meq PO BEDTIME Qty: 14 0RF Discharge Orders: Discharge ED (Routine); Ordered 03/22/24 Ordered By: Rose Murrieta Referrals: Briseida Sánchez PA [Primary Care Provider] - 4-7 days Discharge Diet: Advance as tolerated Discharge Activity: Resume usual activity Patient Instructions: Acute Nausea and Vomiting (ED) Coding Level of Care Code 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 [employer] Documented by User: Rose Murrieta MD 03/22/24 18:33 HPI - Nausea/Vomiting/Diarrhea 2 General: Chief complaint: Nausea/Vomiting/Diarrhea Stated complaint: Vomiting blood, leg pain and numbness Time Seen by Provider: 03/22/24 15:25 Related Data Home Medications Medication Instructions Recorded Confirmed promethazine 25 mg tablet 25 mg PO QID PRN Nausea 04/12/23 06/18/23 Previous Rx's Medication Instructions Recorded gabapentin 300 mg capsule 300 mg PO DAILY #60 caps 06/18/23 potassium chloride 20 mEq 40 meq (2 x 20 mEq) PO BEDTIME #14 06/18/23 tablet,extended release tabs thiamine mononitrate (vit B1) 100 100 mg PO DAILY #90 tabs 06/18/23 mg tablet (Vitamin B-1 (mononitrate)) ondansetron HCl 4 mg tablet 4 mg PO Q8H PRN nausea and 03/22/24 vomiting #14 tabs Allergies Allergy/AdvReac Type Severity Reaction Status Date / Time haloperidol [From Haldol] AdvReac Mild swallowed Verified 03/22/24 14:30 tongue and couldn't move legs PFSH ED 2 PFSH: Medical History Alcoholic peripheral neuropathy Sinus tachycardia Hypokalemia 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 Abdominal pain Elevated LFTs Nicotine dependence, cigarettes, with unspecified nicotine-induced disorders PTSD (post-traumatic stress disorder) Depression Surgical History No pertinent past surgical history Family History Other Hypertension Seizure Social History Smoking and tobacco/nicotine status: current every day tobacco/nicotine user cigarettes Packs smoked per day: 1 Alcohol intake: current Alcohol intake frequency: 3 or more drinks per day Alcohol type: beer Substance/Drug Use: current Substance/Drug use frequency: daily Course 2 Vital Signs: Vital signs: Vital Signs Temperature 98.3 F 03/22/24 14:24 Pulse Rate 121 H 03/22/24 18:18 Respiratory Rate 15 03/22/24 18:18 Blood Pressure 100/82 03/22/24 18:18 Pulse Oximetry 99 03/22/24 18:18 Oxygen Delivery Me thod Room Air 03/22/24 14:24 MDM - Nausea/Vomiting/Diarrhea Medical Decision Making Medical decision making: Differential diagnosis for this patient with nausea and vomiting including but not limited to and based on the above HPI, review of systems and physical exam: Urinary tract infection. Appendicitis. Cholecystis. colitis. small bowel obstruction. crohn's flare. pancreatitis. gastritis. peptic ulcer. cyclic vomiting. Viral illness. Influenza. COVID. - Workup - labwork and imaging ordered to evaluate, rule in and rule out above pathologies. Lab Review: Laboratory results were reviewed and interpreted by myself the emergency room physician. I reviewed the patient's medical record. Reexamination: Patient presented with vomiting she said she had a slight amount of blood likely Chantal-Hernandez tear she has no signs of any major bleeding lab work here is benign particular over did order IV fluids and Zofran awaiting spoke to patient she states that she needs to leave because her ride has to get home I instructed had like to give her IV fluids to see if her heart rate responded she states that she feels improved just wants a prescription for nausea medicine informed her if she worsen she is to return she understands agrees to plan her abdominal exam at discharge is benign Lab Data 03/22/24 17:28 03/22/24 17:28 Laboratory Results WBC 8.81 10^3/uL (3.29-11.43) 03/22/24 17:28 RBC 3.66 10^6/uL (3.85-5.65) L 03/22/24 17:28 Hgb 12.50 g/dL (11.27-16.99) 03/22/24 17: Hct 37.1 % (36-47) 03/22/24: MCV 101.4 fl (85-98) H 03/22/24 17: MCH 34.2 pg (27-33) H 03/22/24: MCHC 33.7 g/dL (30-55) 03/22/24: RDW 13.4 % (12.1-15.1) 03/22/24: Plt Count 169 10^3/cmm (157-399) 03/22/24: MPV 10.2 fL (7.4-10.4) 03/22/24: Neut % (Auto) 58.7 % 03/22/24: Lymph % (Auto) 34.7 % 03/22/24: Real % (Auto) 6.1 % 03/22/24: Eos % (Auto) 0.0 % 03/22/24: Baso % (Auto) 0.3 % 03/22/24: Neut # (Auto) 5.16 10^3/uL (1.8-7.7) 03/22/24: Lymph # (Auto) 3.1 10^3/uL (0.8-4.8) 03/22/24: Real # (Auto) 0.5 10^3/uL (0.2-0.9) 03/22/24: Eos # (Auto) 0.0 10^3/uL (0.0-0.8) 03/22/24: Baso # (Auto) 0.0 10^3/uL (0.0-0.1) 03/22/24: Nucleated RBC % (auto) 0 % 03/22/24: Nucleated RBCs # 0.0 /100WBC 03/22/24: PT 11.70 SECONDS (12.1-14.9) L 03/22/24: INR 0.83 (0.8-1.2) 03/22/24: Sodium 135 mmol/L (136-145) L 09/22/24 17:28 Potassium 3.8 mmol/L (3.5-5.1) 03/22/24 17:28 Chloride 98 mmol/L (98-107) 03/22/24 17: Carbon Dioxide 19 mmol/L (22-29) L 03/22/24 17:28 Anion Gap 21.8 (5-19) H 03/22/24 17:28 BUN 9 mg/dL (6-20) 03/22/24 17:28 Creatinine 0.5 mg/dL (0.5-0.9) 03/22/24 17:28 GFR Calculation 140.4 mL/min (90-130) H 03/22/24 17:28 Glucose 96 mg/dL (65-115) 03/22/24 17:28 Calculated Osmolality 279 mOsm/kg (285-295) L 03/22/24 17:28 Calcium 8.6 mg/dL (8.5-10.5) 03/22/24 17:28 Total Bilirubin 0.5 mg/dL (0.15-1.2) 03/22/24 17:28 AST 112 U/L (0-32) H 03/22/24 17:28 ALT 102 U/L (0-33) H 03/22/24 17:28 Alkaline Phosphatase 135 U/L (35-105) H 03/22/24 17:28 Total Protein 7.2 g/dL (6.6-8.7) 03/22/24 17:28 Albumin 3.9 g/dL (3.5-5.2) 03/22/24 17: Globulin 3.3 g/dL (1.3-4.6) 03/22/24 17:28 Urine Color Dark yellow (Yellow) A 03/22/24 17:29 Urine Appearance Clear (CLEAR) 03/22/24 17:29 Urine pH 6.0 (5-7) 03/22/24 17:29 Ur Specific [place] 1.023 (1.005-1.030) 03/22/24 17: Urine Protein 3+ (Negative) A 03/22/24 17: Urine Glucose (UA) Negative (Normal) 03/22/24 17:29 Urine Ketones 2+ (Negative) H 03/22/24 17: Urine Blood Negative (Negative) 03/22/24 17:29 Urine Nitrate Negative (Negative) 03/22/24 17:29 Urine Bilirubin Negative (Negative) 03/22/24 17:29 Urine Urobilinogen 1.0 mg/dL (Negative) 03/22/24 17:29 Ur Leukocyte Esterase 1+ (Negative) A 03/22/24 17:29 Urine RBC 0-2 /hpf (0-2) 03/22/24 17:29 Urine WBC 0-5 /hpf (0-5) 03/22/24 17:29 Ur Squamous Epith Cells 11-20 /hpf (0-5) 03/22/24 17:29 Amorphous Sediment Not Reportable 03/22/24 17:29 Urine Bacteria Trace /hpf (NONE) 03/22/24 17:29 Hyaline Casts 6.20 /lpf 03/22/24 17:29 No radiology studies performed this visit Discharge Plan Discharge Patient Disposition: Home Clinical Impression: Vomiting Qualifiers: Vomiting type: unspecified Nausea presence: with nausea Qualified Code(s): R 11.2 - Nausea with vomiting, unspecified Condition: Stable Prescriptions: Continued ondansetron HCl 4 mg tablet 4 mg PO Q8H PRN (Reason: nausea and vomiting) Qty: 14 0RF No Action promethazine 25 mg tablet 25 mg PO QID PRN (Reason: Nausea) gabapentin 300 mg capsule 300 mg PO DAILY Qty: 60 0RF Rx Instructions: Take 300mg PO QD x 1 day, then 300mg PO BID x 1 day, then 300mg PO TID thereafter Vitamin B-1 (mononitrate) 100 mg Tablet 100 mg PO DAILY Qty: 90 2RF potassium chloride 20 mEq tablet extended release 40 meq PO BEDTIME Qty: 14 0RF Discharge Orders: Discharge ED (Routine); Ordered 03/22/24 Ordered By: Rose Murrieta Referrals: Briseida Sánchez PA [Primary Care Provider] - 4-7 days Discharge Diet: Advance as tolerated Discharge Activity: Resume usual activity Patient Instructions: Acute Nausea and Vomiting (ED) Coding Level of Care Code ED 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
[2024-03-22 16:52] VITALS: PULSE 130; RESP 29; O2SAT 96
[2024-03-22 16:55] VITALS: PULSE 121; RESP 26; O2SAT 97
[2024-03-22 17:38] LABS: Basophils % 0.3 %; Hematocrit 37.1 % (36-47); Lymphocytes # 3.1 10^3/uL (0.8-4.8); Lymphocytes % 34.7 %; Mean Corpuscular HGB Conc 33.7 g/dL (30-55); Mean Corpuscular Hemoglobin 34.2 pg (27-33); Mean Corpuscular Volume 101.4 fl (85-98); Mean Platelet Volume 10.2 fL (7.4-10.4); Monocytes # 0.5 10^3/uL (0.2-0.9); Monocytes % 6.1 %; Neutrophils # 5.16 10^3/uL (1.8-7.7); Neutrophils % 58.7 %; Nucleated Red Blood Cells % 0 %; Platelet Count 169 10^3/cmm (157-399); Red Blood Count 3.66 10^6/uL (3.85-5.65); Red Cell Distribution Width 13.4 % (12.1-15.1); White Blood Count 8.81 10^3/uL (3.29-11.43)
[2024-03-22 17:51] LABS: INR 0.83 (0.8-1.2)
[2024-03-22 17:56] LABS: Alanine Aminotransferase 102 U/L (0-33); Albumin Level 3.9 g/dL (3.5-5.2); Alkaline Phosphatase 135 U/L (35-105); Blood Urea Nitrogen 9 mg/dL (6-20); Calcium 8.6 mg/dL (8.5-10.5); Carbon Dioxide 19 mmol/L (22-29); Chloride 98 mmol/L (98-107); Creatinine Clr Calc Pharmacy 117.1605; Globulin 3.3 g/dL (1.3-4.6); Glomerular Filtration Rate 140.4 mL/min (90-130); Glucose 96 mg/dL (65-115); Osmolality Calculated 279 mOsm/kg (285-295); Sodium 135 mmol/L (136-145); Total Bilirubin 0.5 mg/dL (0.15-1.2); Total Protein 7.2 g/dL (6.6-8.7)
[2024-03-22 17:57] LABS: Bilirubin Urine Negative (Negative); Blood Urine Negative (Negative); Glucose Urine UA Negative (Normal); Ketones Urine 2+ (Negative); Leukocyte Esterase Urine 1+ (Negative); Nitrate Urine Negative (Negative); Protein Urine 3+ (Negative); Specific Gravity, Urine 1.023 (1.005-1.030); Urine Appearance Clear (CLEAR); Urine Color Dark Yellow (Yellow)
[2024-03-22 18:01] LABS: Bacteria Urine Trace /hpf; RBC Urine 0-2 /hpf (0-2); WBC Urine 0-5 /hpf (0-5)
[2024-03-22 18:02] LABS: Anion Gap 21.8 (5-19); Aspartate Amino Transferase 112 U/L (0-32); Potassium 3.8 mmol/L (3.5-5.1)
[2024-03-22 18:18] VITALS: BP 100/82; PULSE 121; RESP 15; O2SAT 99
[2024-03-22 18:34] VITALS: BP 100/82; PULSE 121; O2SAT 93
== END 2024-03-22 18:34 | disposition home or self-care (01) ==
PROVIDERS: Emergency Medicine; Emergency Provider Emergency Medicine; PCP Physician Assistant
DX: R11.2 Nausea with vomiting, unspecified (principal); F17.210 Nicotine dependence, cigarettes, uncomplicated
CPT/HCPCS: 36415; 80053; 81001; 85025; 85610; 99283

== ENCOUNTER 2024-08-11 11:35 | Inpatient (IN) | payer OTHER, MEDICAID, SELFPAY ==
[2024-08-11] VITALS (60 sets, daily range): BP systolic 103–141; BP diastolic 64–99; PULSE 117–132; RESP 17–31; TEMP 36.7; O2SAT 90–100
--- NOTE | 2024-08-11 11:39 | ECG_ITS ---
[facility]24[facility]11 Pat Name: Lou Marks Department: Room: Gender: Female Patient Access: : 1990 Requested By: Prudence Garcia Order Number: [id number] Rojas MD: Shirley Gomes M.D. Measurements Intervals [place] Rate: 126 P: 77 PA: 133 QRS: 83 QRSD: 85 T: 41 QT: 305 QTc: 443 Interpretive Statements SINUS TACHYCARDIA NONSPECIFIC T-WAVE ABNORMALITY ABNORMAL RHYTHM ECG Compared to ECG 03/29/2023 14:14:39 No significant changes Electronically Signed On 08-12-2024 18:05:09 SYNTHETIC PLASTERER by Shirley Gomes M.D. [email or web address]
--- NOTE | 2024-08-11 11:42 | XR_ITS ---
WS: [id number] XR chest 1V portable [id number] REASON FOR EXAM: vomiting, chest pain FINDINGS: The heart and the mediastinum are within normal limits. Calcified granulomatous disease bilaterally. No acute pulmonary parenchymal or pleural abnormality is identified. The bony thorax is intact and without significant abnormality. The chest is unchanged compared to 03/29/2023. XR/XR chest 1V portable [id number] IMPRESSION: Stable chest without acute abnormality.
--- NOTE | 2024-08-11 11:45 | ED_ITS ---
HPI - Nausea/Vomiting/Diarrhea 2 General: Chief complaint: Nausea/Vomiting/Diarrhea Stated complaint: FLU Like Time Seen by Provider: 08/11/24 11:35 Source: patient Mode of arrival: ambulatory Limitations: no limitations History of Present Illness: Patient is a 33-year-old female here with complaints of vomiting, cough, chest congestion, chest pain. She states symptoms began around 6 to 7 PM yesterday evening. She states she has had countless episodes of non-bloody, non-bilious emesis. At one point she tells me that she feels like her chest congestion is causing her to cough and her vomiting is more post-tussive. Patient arrives tachycardic and tachypneic. She does have a history of alcohol abuse. States she last drank 2 days ago during the [place] Bowl. She has had a few episodes of diarrhea. She is not having abdominal pain. No fevers. MD elicited complaint: nausea, vomiting and diarrhea Associated nausea: Yes Associated abdominal pain: No Location of pain: None Relieving factors: none Associated symtoms: Reports chest pain and nausea; Denies dizziness, dysuria, headache(s), palpitations or syncope Related Data Home Medications ?Medication ?Instructions ?Recorded ?Confirmed No Known Home Medications 08/11/2408/01 Allergies Allergy/AdvReac Type Severity Reaction Status Date / Time haloperidol (From Haldol) AdvReac Mild swallowed Verified 03/22/24 14:30 tongue and couldn't move legs Review of Systems 2 Const: Denies: fever(s) ENMT: Reports: throat pain (from vomiting); Denies: odynophagia, ear or mastoid pain, nasal discharge or nasal congestion Card: Reports: chest pain; Denies: palpitations, irregular heart rhythm, edema, swelling of feet/ankles, lightheadedness, syncope, pre-syncope, dyspnea on exertion, orthopnea, leg pain with exertion or acrocyanosis Resp: Reports: productive cough, change in phlegm color and chest congestion; Denies: hemoptysis GI: Reports: nausea, vomiting and diarrhea; Denies: abdominal pain, hematemesis, hematochezia or melena : Denies: flank pain, dysuria or hematuria Musc: Denies: neck pain, back pain, extremity pain, extremity swelling, joint swelling or joint redness Skin/Breast: Denies: rash Neuro: Denies: headache(s), numbness in extremities, weakness in extremities, sensory changes or dizziness PFSH ED 2 PFSH: Medical History Alcoholic peripheral neuropathy Sinus tachycardia Hypokalemia 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 Dupree-accepts to ICU Vital Signs: Vital signs: Vital Signs Temperature 98.0 F 08/11/24 11:37 Pulse Rate 125 H 08/11/24 14:00 Respiratory Rate 27 H 08/11/24 14:00 Blood Pressure 125/99 08/11/24 14:00 Pulse Oximetry 100 08/11/24 14:00 Oxygen Delivery Me thod Room Air 08/11/24 13:00 MDM - Nausea/Vomiting/Diarrhea Medical Decision Making Patient is a 33-year-old female here for nausea, vomiting beginning yesterday. She arrives tachycardic and tachypneic. Her blood work consistent with a significant metabolic/starvation acidosis as she has a gap of 50.6, bicarb of 5, and chloride of 75. Positive serum ketones. Glucose is 203. She is not a known diabetic. ABG showing pH of 7.01. UA and CXR did not show any evidence for infection. Spoke to hospitalist Dr. Dupree who will admit patient to ICU. She will place orders for bicarb and insulin drip. Dr. Murrieta aware of this patient will place admit orders. Medical Records I reviewed the patient's medical records. Lab Data I reviewed the patient's lab results. 08/11/24 12:08 08/11/24 12:08 Radiology Impressions Chest X-Ray 08/11/24 11:42 IMPRESSION: Stable chest without acute abnormality. Laboratory Results WBC 10.92 10^3/uL (3.29-11.43) 08/11/24 12:08 RBC 4.41 10^6/uL (3.85-5.65) 08/11/24 12:08 Hgb 14.60 g/dL (11.27-16.99) 08/11/24 12:08 Hct 46.6 % (36-47) 08/11/24 12:08 MCV 105.7 fl (85-98) H 08/11/24 12:08 MCH 33.1 pg (27-33) H 08/11/24 12:08 MCHC 31.3 g/dL (30-55) 08/11/24 12:08 RDW 14.0 % (12.1-15.1) 08/11/24 12:08 Plt Count 294 10^3/cmm (157-399) 08/11/24 12:08 MPV 9.1 fL (7.4-10.4) 08/11/24 12:08 Neut % (Auto) 91.6 % 08/11/24 12:08 Lymph % (Auto) 4.3 % 08/11/24 12:08 [place] % (Auto) 3.4 % 08/11/24 12:08 Eos % (Auto) 0.0 % 08/11/24 12:08 Baso % (Auto) 0.4 % 08/11/24 12:08 Neut # (Auto) 10.01 10^3/uL (1.8-7.7) H 08/11/24 12:08 Lymph # (Auto) 0.5 10^3/uL (0.8-4.8) L 08/11/24 12:08 [place] # (Auto) 0.4 10^3/uL (0.2-0.9) 08/11/24 12:08 Eos # (Auto) 0.0 10^3/uL (0.0-0.8) 08/11/24 12:08 Baso # (Auto) 0.0 10^3/uL (0.0-0.1) 08/11/24 12:08 Nucleated RBC % (auto) 0 % 08/11/24 12:08 Nucleated RBCs # 0.0 /100WBC 08/11/24 12:08 Specimen Type Arterial 08/11/24 13:29 Sample Site Radial, left 08/11/24 13:29 ABG pH 7.01 (7.35-7.45) L* 08/11/24 13:29 ABG pCO2 12.0 mmHg (35-45) L* 08/11/24 13:29 ABG pO2 134.0 mmHg (80.0-100.0) H 08/11/24 13:29 ABG PO2/FiO2 Ratio 638 08/11/24 13:29 ABG HCO3 3.0 mmol/L (22-26) L 08/11/24 13:29 ABG O2 Saturation 98.3 08/11/24 13:29 ABG Base Excess -26.2 mmol/L (-2.0-2.0) L 08/11/24 13:29 Taqueria Test Pos 08/11/24 13:29 A-a O2 Gradient Not Reportable 08/11/24 13:29 Hematocrit 35.0 % (37-47) L 08/11/24 13:29 Hgb O2 Saturation 96.2 % (95-100) 08/11/24 13:29 Carboxyhemoglobin 1.3 %THgb (0.4-20.1) 08/11/24 13:29 Methemoglobin 0.9 % (0.4-1.5) 08/11/24 13:29 Total Hemoglobin 11.4 g/dL (12-16) L 08/11/24 13:29 Sodium 132.0 mmol/L (131-143) 08/11/24 13:29 Potassium 4.1 mmol/L (3.5-5.0) 08/11/24 13:29 Glucose 169.0 mg/dL (70-115) H 08/11/24 13:29 Ionized Calcium 1.1 mmol/L (1.1-1.4) 08/11/24 13:29 O2 Delivery Device Room air 08/11/24 13:29 FiO2 21.0 % 08/11/24 13:29 Slime Plant Operator ID [id number] 08/11/24 13:29 Sodium 126 mmol/L (136-145) L 08/11/24 12:08 Potassium 4.6 mmol/L (3.5-5.1) 08/11/24 12:08 Chloride 75 mmol/L (98-107) L 08/11/24 12:08 Carbon Dioxide 5 mmol/L (22-29) L* 08/11/24 12:08 Anion Gap 50.6 (5-19) H 08/11/24 12:08 BUN 13 mg/dL (6-20) 08/11/24 12:08 Creatinine 1.1 mg/dL (0.5-0.9) H 08/11/24 12:08 GFR Calculation 56.5 mL/min (90-130) L 08/11/24 12:08 Glucose 203 mg/dL (65-115) H 08/11/24 12:08 Calculated Osmolality 268 mOsm/kg (285-295) L 08/11/24 12:08 Lactic Acid 1.5 mmol/L (0.5-2.2) 08/11/24 12:08 Calcium 9.2 mg/dL (8.5-10.5) 08/11/24 12:08 Total Bilirubin 1.0 mg/dL (0.15-1.2) 08/11/24 12:08 AST 35 U/L (0-32) H 08/11/24 12:08 ALT 21 U/L (0-33) 08/11/24 12:08 Alkaline Phosphatase 148 U/L (35-105) H 08/11/24 12:08 Total Protein 10.4 g/dL (6.6-8.7) H 08/11/24 12:08 Albumin 5.5 g/dL (3.5-5.2) H 08/11/24 12:08 Globulin 4.9 g/dL (1.3-4.6) H 08/11/24 12:08 Lipase 30 U/L (13-60) 08/11/24 12:08 HCG, Qual Negative (Negative) 08/11/24 12:08 Urine Color Yellow (Yellow) 08/11/24 12:33 Urine Appearance Clear (CLEAR) 08/11/24 12:33 Urine pH 5.5 (5-7) 08/11/24 12:33 Ur Specific [place] 1.017 (1.005-1.030) 08/11/24 12:33 Urine Protein 4+ (Negative) A 08/11/24 12:33 Urine Glucose (UA) Negative (Normal) 08/11/24 12:33 Urine Ketones 4+ (Negative) 08/11/24 12:33 Urine Blood 1+ (Negative) A 08/11/24 12:33 Urine Nitrate Negative (Negative) 08/11/24 12:33 Urine Bilirubin Negative (Negative) 08/11/24 12:33 Urine Urobilinogen 1.0 mg/dL (Negative) 08/11/24 12:33 Ur Leukocyte Esterase Negative (Negative) 08/11/24 12:33 Urine RBC 0-2 /hpf (0-2) 08/11/24 12:33 Urine WBC 0-5 /hpf (0-5) 08/11/24 12:33 Ur Squamous Epith Cells 6-10 /hpf (0-5) 08/11/24 12:33 Amorphous Sediment Not Reportable 08/11/24 12:33 Urine Bacteria None seen /hpf (NONE) 08/11/24 12:33 Hyaline Casts 20.67 /lpf 08/11/24 12:33 Salicylates < 0.3 mg/dL (3-10) L 08/11/24 12:08 Ethyl Alcohol < 10 mg/dL (0-10) 08/11/24 12:08 Serum Ketones Positive (Negative) H 08/11/24 12:08 Coronavirus (PCR) Negative (Negative) 08/11/24 11:40 Influenza A (PCR) Negative (Negative) 08/11/24 11:40 Influenza Type B (PCR) Negative (Negative) 08/11/24 11:40 RSV (PCR) Negative (Negative) 08/11/24 11:40 All radiology interpretation(s) finalized by discharge Discharge Plan Discharge Admit Provider: Tracy Dupree Condition: Stable Coding Level of Care Code ED Dog Or Animal Sitter for Thi Chaney
[2024-08-11 12:17] LABS: Basophils % 0.4 %; Hematocrit 46.6 % (36-47); Lymphocytes # 0.5 10^3/uL (0.8-4.8); Lymphocytes % 4.3 %; Mean Corpuscular HGB Conc 31.3 g/dL (30-55); Mean Corpuscular Hemoglobin 33.1 pg (27-33); Mean Corpuscular Volume 105.7 fl (85-98); Mean Platelet Volume 9.1 fL (7.4-10.4); Monocytes # 0.4 10^3/uL (0.2-0.9); Monocytes % 3.4 %; Neutrophils # 10.01 10^3/uL (1.8-7.7); Neutrophils % 91.6 %; Nucleated Red Blood Cells % 0 %; Platelet Count 294 10^3/cmm (157-399); Red Blood Count 4.41 10^6/uL (3.85-5.65); White Blood Count 10.92 10^3/uL (3.29-11.43)
[2024-08-11 12:30] LABS: Alanine Aminotransferase 21 U/L (0-33); Albumin Level 5.5 g/dL (3.5-5.2); Alkaline Phosphatase 148 U/L (35-105); Blood Urea Nitrogen 13 mg/dL (6-20); Calcium 9.2 mg/dL (8.5-10.5); Chloride 75 mmol/L (98-107); Globulin 4.9 g/dL (1.3-4.6); Glomerular Filtration Rate 56.5 mL/min (90-130); Glucose 203 mg/dL (65-115); Lipase 30 U/L (13-60); Osmolality Calculated 268 mOsm/kg (285-295); Sodium 126 mmol/L (136-145); Total Protein 10.4 g/dL (6.6-8.7)
[2024-08-11 12:31] LABS: Alcohol Level < 10 mg/dL (0-10); Carbon Dioxide 5 mmol/L (22-29)
[2024-08-11 12:32] LABS: Lactic Sepsis W/Reflex 1.5 mmol/L (0.5-2.2)
[2024-08-11 12:33] LABS: Anion Gap 50.6 (5-19); Aspartate Amino Transferase 35 U/L (0-32); Potassium 4.6 mmol/L (3.5-5.1)
[2024-08-11] MEDS: sodium chloride 0.9% 1,000 ML 999 ML IV ×2 (12:33→13:35)
[2024-08-11 12:43] LABS: HCG, Serum Qual Negative (Negative)
[2024-08-11 12:53] LABS: Influenza A NEGATIVE (Negative); Influenza B NEGATIVE (Negative); Respiratory Syncytial Virus Ce NEGATIVE (Negative); SARS-CoV-2 PCR NEGATIVE (Negative)
[2024-08-11 12:54] LABS: Bilirubin Urine Negative (Negative); Blood Urine 1+ (Negative); Glucose Urine UA Negative (Normal); Ketones Urine 4+ (Negative); Leukocyte Esterase Urine Negative (Negative); Nitrate Urine Negative (Negative); Protein Urine 4+ (Negative); Specific Gravity, Urine 1.017 (1.005-1.030); Urine Appearance Clear (CLEAR); Urine Color Yellow (Yellow); pH Urine 5.5 (5-7)
[2024-08-11 12:55] LABS: Ketone (Acetest) Serum Positive (Negative)
[2024-08-11 13:14] LABS: Salicylate < 0.3 mg/dL (3-10)
[2024-08-11 13:41] LABS: Base Excess ABG -26.2 mmol/L (-2.0-2.0); Blood Gas Allen Test Pos; Blood Gas Operator Identificat glc; Blood Gas Sample Site Radial, left; Blood Gas Sample Type Arterial; Carboxyhemoglobin 1.3 %THgb (0.4-20.1); HGB O2 Sat 96.2 % (95-100); Ionized Calcium Level - ABG 1.1 mmol/L (1.1-1.4); Methemoglobin 0.9 % (0.4-1.5); Oxygen Device ROOM AIR; Oxygen Saturation ABG 98.3; PO2 FiO2 Ratio Arterial Blood 638; Potassium Level - ABG 4.1 mmol/L (3.5-5.0); Total Hemoglobin 11.4 g/dL (12-16)
[2024-08-11 13:48] LABS: Add Urine Microscopic? YES; Bacteria Urine None Seen /hpf; Hyaline Casts Urine 20.67 /lpf; RBC Urine 0-2 /hpf (0-2); WBC Urine 0-5 /hpf (0-5)
[2024-08-11 13:49] LABS: ABG PH Result 7.01 (7.35-7.45)
--- NOTE | 2024-08-11 13:50 | ECG_ITS ---
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 Measurements Intervals [place] Rate: 127 P: 72 AL: 164 QRS: 87 QRSD: 86 T: 63 QT: 304 QTc: 442 Interpretive Statements SINUS TACHYCARDIA ABNORMAL RHYTHM ECG Compared to ECG 08/11/2024 11:39:09 T-wave abnormality no longer present Electronically Signed On 08-12-2024 17:30:53 LINING SEWER by Shirley Gomes M.D. [email or web address]
--- NOTE | 2024-08-11 13:59 | PC.PHAR ---
Pt states she has an inhaler but does not have one prescribed to her. She wouldn't say if it was otc Primatene Mist or using someone elses prescription.
--- NOTE | 2024-08-11 14:02 | CTR_ITS ---
PROCEDURE INFORMATION: Exam: CT Chest Without Contrast; Diagnostic Exam date and time: 08/11/2024 3:12 PM Age: 33 years old Clinical indication: Nausea and vomiting; Cough; Additional info: Intractable nausea vomitting TECHNIQUE: Imaging protocol: Diagnostic computed tomography of the chest without contrast. Radiation optimization: All CT scans at this facility use at least one of these dose optimization techniques: automated exposure control; mA and/or kV adjustment per patient size (includes targeted exams where dose is matched to clinical indication); or iterative reconstruction. COMPARISON: CT angio chest PE protcl [id number] 11/08/2022 11:35 PM RADIATION DOSE METRICS: Total DLP (mGy-cm): 462.16 FINDINGS: Lungs: Several ground-glass opacities noted in the posterolateral lung bases. No masses. Pleural spaces: Unremarkable. No pneumothorax. No pleural effusion. Heart: No coronary artery calcifications. No cardiomegaly. No pericardial effusion. Lymph nodes: Unremarkable. No enlarged lymph nodes. Vasculature: Unremarkable. No aortic aneurysm. Bones/joints: Unremarkable. No acute fracture. Soft tissues: Unremarkable. PROCEDURE INFORMATION: Exam: CT Abdomen And Pelvis Without Contrast Exam date and time: 08/11/2024 3:12 PM Age: 33 years old Clinical indication: Nausea and vomiting; Cough; Additional info: Intractable nausea vomitting TECHNIQUE: Imaging protocol: Computed tomography of the abdomen and pelvis without contrast. Radiation optimization: All CT scans at this facility use at least one of these dose optimization techniques: automated exposure control; mA and/or kV adjustment per patient size (includes targeted exams where dose is matched to clinical indication); or iterative reconstruction. COMPARISON: CT abdomen pelvis w con* [id number] 01/08/2023 6:44 PM RADIATION DOSE METRICS: Total DLP (mGy-cm): 462.16 FINDINGS: Liver: Normal. No mass. Gallbladder and biliary ducts: Punctate calcified gallstone. No ductal dilation. Pancreas: Normal. No ductal dilation. Spleen: Normal. No splenomegaly. Adrenal glands: Normal. No mass. Kidneys and ureters: Normal. No hydronephrosis. Stomach and bowel: Distended fluid-filled stomach. No signs of gastric outlet obstruction. Appendix: No evidence of appendicitis. Intraperitoneal space: Unremarkable. No free air. No significant fluid collection. Vasculature: Unremarkable. No abdominal aortic aneurysm. Lymph nodes: Unremarkable. No enlarged lymph nodes. Urinary bladder: Unremarkable as visualized. Reproductive: Unremarkable as visualized. Bones/joints: No acute fracture. Soft tissues: Unremarkable. CT/[place] [id number] IMPRESSION: Multiple ground-glass opacities in the posterolateral lung bases which could reflect atelectasis or small airway infectious/inflammatory process including viral pneumonias. IMPRESSION: 1. Distended fluid-filled stomach, may indicate gastritis. 2. Cholelithiasis.
[2024-08-11 14:05] LABS: UA Slide Review UA Slide Review Perf
[2024-08-11 14:06] LABS: Add Urine Culture? No
--- NOTE | 2024-08-11 14:20 | PC.NURSE ---
THIS RN INFORMED PT THAT ADMITTING PROVIDER ORDERED A CABELLO CATHETER. PT REQUESTED TO NOT HAVE CABELLO CATHETER PLACED. DR. CAMARILLO NOTIFIED. DR. CAMARILLO INFORMED THIS NURSE THAT THE PT DOES NOT HAVE TO HAVE A CABELLO CATHETER LONG ACCURATE OUTPUT IS RECORDED IN A HAT FOR MEASUREMENTS AND DOCUMENTED APPROPRIATELY.
--- NOTE | 2024-08-11 14:28 | P.CONIM_ITS ---
Providers/Reason For Consult 2 Consulting Physician/Specialty*: phoenix finney md / telenephrology Reason for Consult*: inc AGMA- ketoacidosis Requesting Physician: Dr Dupree Attending Physician: Tracy Dupree MD Primary Care Provider: Briseida Sánchez History of Present Illness History of Present Illness Lou Marks is a 33 year old female h/o ETOH use, malnourished, depression, tob use, ETOH related peripheral neuropathy. The patient presented with nausea/ vomiting/ diarrhea since 6 pm last night. She says she drank a lot of vodka while watching the superbowl. In ER whe was diagnosed w/ ISAURA, cr arnaldo from 0.5 mg/sl in Mar 2024 to 1.1 mg/dl today. Hyponatremia na 126, and AGMA of 46 with a bicrab of 5. Her pH on ABG is 7.01 qith pCO2 of 12. renal called to help in management Review of Systems 2 Narrative: anxious, nausea, chest pain, no hackett, no sob, + n/v, no abd pain. denies urinary symptoms. 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 Abdominal pain Elevated LFTs Nicotine dependence, cigarettes, with unspecified nicotine-induced disorders PTSD (post-traumatic stress disorder) Depression Surgical History No pertinent past surgical history Family History Other Hypertension Seizure Social History Smoking and tobacco/nicotine status: current every day tobacco/nicotine user cigarettes Packs smoked per day: 1 Alcohol intake: current Alcohol intake frequency: 3 or more drinks per day Alcohol type: beer Substance/Drug Use: current Substance/Drug use frequency: daily Vitals/I&O/Wt Last Vital Signs Temp 98.0 F 08/11/24 11:37 Pulse 125 H 08/11/24 14:00 Resp 27 H 08/11/24 14:00 BP 125/99 08/11/24 14:00 Pulse Ox 100 08/11/24 14:00 O2 Del Method Room Air 08/11/24 13:00 08/10/24 08/11/24 08/11/24 22:59 06:59 14:59 Intake Total 1000 / 1000 Balance 1000 / 1000 Weight last 48 hrs Weight 58.967 kg Physical Exam 2 Narrative: in bed, No resp distress VS noted Heent- nc/at, eomi, anicteric neck supple lungs clear heart tachy abd soft, +bs ext no edema neuro- a,a, o x 3 Data 08/11/24 12:08 08/11/24 12:08 A&P Assessment and plan (1) Ketoacidosis: 33 year old female ETOH use, malnutrition, and depression. Pt drank sugnificant vodka on Saturday while watching the superbowl, last night she developed n/v/d. she now presents with: 1. inc AGMA of 46 with + ketoness- likely starvation ketoacidosis -please check serum osmolality- her calculated osmolality is 268 -please give D5W with 150 meq/l at 150 ml/hr -can also use LR boluses. -would avoid NS as it can cause a hyperchloremic metabolic acidosis -abg= 7.01/06/02 -lUnlike diabetic k?t???id??i?, ?l??h?li? k?t???id?si? does not generate substantial potassium redistribution from cells into the extracellular space. Potassium redistribution in diabetic k?t???id?si? is largely due to factors other than acidosis, including hyperosmolality (caused by hyperglycemia) and insulin deficiency. These factors are absent in patients with ?l??holi? k?t???i??sis who typically have normal, or minimally elevated, blood glucose. ease check chem 7, mag, phos every 4 hours. she is at high risk for hypokalemia, hypophosphatemia, and hypomagnesemia - she denies taking SGLT2-i and does not have glucose in her urines 2. ISAURA- send urine electrolytes- likely prerneal vs ATN u/a w/ 1+ blood, 4+ protein, SG 1017 -check ethylene glycol levels as ETOH level is negative 3. hyponatremia- check ur electrolytes and cr. can be from ISAURA vs beed drinkers hyponatremia check tsh level 4. albumin of 5.5- she is likely hemoconcentrated from volume depletion seen and examined w/ aid of a RN using A/V equipment pt consents to telemed visit and treatment Plan ivf PDMP PDMP Reviewed: Not Reviewed Consult Attestations 2 Medical Necessity Statement: severe ketoacidosis Time Spent in Patient Care: Greater than 35 minutes (>than 50% of time spent in counselling and/or direct pt care on unit) . Critical Care Time: Critical Care Time (min): 50 Coding Level of Care Code Acute Code for Chg Fwd Diagnoses Ketoacidosis E87.29
[2024-08-11 14:29] LABS: Troponin(5th) Baseline < 6 ng/L (0-10)
[2024-08-11] MEDS: thiamine 100 mg/mL 2mL SDV IVP (14:34)
--- NOTE | 2024-08-11 14:41 | P.HP_ITS ---
Providers/Chief Complaint 2 Admitting Physician: Tracy Dupree MD Primary Care Provider: Briseida Sánchez Chief Complaint: FLU Like History of Present Illness Lou Marks is a 33 year old female with past medical history of alcohol abuse, kratom use, alcohol peripheral neuropathy who is present to the hospital in the past for nausea vomiting presented to the hospital today for nausea vomiting and diarrhea. She states that she drank a lot of vodka on the day of Super Bowl. Around 7 PM yesterday she started having episodes of nonbloody nonbilious emesis and at one point did have a little bit of blood in the vomitus itself. She states that she has been having some chest pain just from spasming after vomiting otherwise the pain is not there. She does have a history of alcohol abuse. She states she has not drank for 1 year and drank just on the day of this approval. She has also had a few episodes of diarrhea between yesterday and today has gone to the bathroom maybe 5 or 6 times. She states it is completely water. No blood in stool. Denies any abdominal pain denies fever denies cough. Denies any sputum production. She has not been able to keep anything down. 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 Abdominal pain Elevated LFTs Nicotine dependence, cigarettes, with unspecified nicotine-induced disorders PTSD (post-traumatic stress disorder) Depression Surgical History No pertinent past surgical history Family History Other Hypertension Seizure Social History Smoking and tobacco/nicotine status: current every day tobacco/nicotine user cigarettes Packs smoked per day: 1 Alcohol intake: current Alcohol intake frequency: 3 or more drinks per day Alcohol type: beer Substance/Drug Use: current Substance/Drug use frequency: daily Vitals/I&O/Wt Last Vital Signs Temp 98.0 F 08/11/24 11:37 Pulse 125 H 08/11/24 14:00 Resp 27 H 08/11/24 14:00 BP 125/99 08/11/24 14:00 Pulse Ox 100 08/11/24 14:00 O2 Del Method Room Air 08/11/24 13:00 08/10/24 08/11/24 08/11/24 22:59 06:59 14:59 Intake Total 1999 Balance 1999 Weight last 48 hrs Weight 58.967 kg Physical Exam 2 Narrative: General: Oriented x 3, appears severely dehydrated, daughter present at bedside, HEENT: Normocephalic, atraumatic, EOMI, breathing room air, Cardio: Sinus tachycardia, heart rate 1 25-1 30. Slightly tachypneic. Respiratory: Able to protect airway, lungs clear to auscultation, slightly tachypneic. GI: Abdomen soft, nontender, nondistended, bowel sounds + Behavior: Appropriate and cooperative Extremities: No edema bilateral lower extremity, both legs mildly tender to palpation which she attributes to her neuropathy. Data 08/11/24 12:08 08/11/24 12:08 A&P Assessment and plan (1) Transaminitis: (2) Ketoacidosis: (3) High anion gap metabolic acidosis: (4) Alcoholic ketoacidosis: (5) Diarrhea: (6) Nausea & vomiting: Qualifiers: Vomiting type: unspecified Qualified Code(s): R11.2 - Nausea with vomiting, unspecified (7) Alcoholic peripheral neuropathy: (8) Acute kidney injury: Plan #Alcoholic ketoacidosis #Severe high anion gap metabolic acidosis most likely secondary to alcohol abuse #Acute kidney injury secondary to prerenal cause #Nausea vomiting diarrhea #Mildly elevated liver enzymes most likely secondary to alcohol use #Severely hemoconcentrated #Alcohol peripheral neuropathy #Not on any medications at home ? Patient presented with nausea vomiting diarrhea severe dehydration most likely secondary to alcohol binge drinking episode on the day absorbable. She is severely dehydrated at this time all labs are hemoconcentrated. She is tachypneic tachycardic and has severe anion gap metabolic acidosis. Denies drinking any other type of alcohol with alcohol mental alcohol at this time. She states she drank vodka. Patient denies being on any medications at home therefore euglycemic DKA unlikely. She does not have a history of diabetes ? Check serum osmolality to check for osmolar gap although unlikely high secondary to drinking vodka ? Placed on bicarb drip with D5, ordered thiamine 100 IV push x 1 now ? Ordered thiamine 500 IV x 1 ? Placed on folic acid thiamine daily ? Placed on LR at 125 cc/h ? Check BMP, phosphorus, magnesium every 4 hours ? Patient at risk of refeeding syndrome and severe electrolyte imbalance ? At this time continue to hydrate patient and watch for electrolyte abnormalities and replete as needed ? Empirically placed on vancomycin and Zosyn ? Check CT chest abdomen pelvis to rule out other etiology however unlikely at this time ? Will check VBG in 4 hours ? At this time there is no acute indication for dialysis ? Consult nephrology. Appreciate recommendations ? Check CBC CMP mag phosphorus in a.m. ? Check c.diff, stool culture, ova parasite screen ? Check hemoglobin A1c ? Patient is not to be given any insulin at this time. Full code DVT prophylaxis: Heparin SQ twice daily PDMP PDMP Reviewed: Not Reviewed Attestations 2 Medical Necessity Statement*: Critically ill requiring ICU stay with bicarb drip and fluids. Patient is alcoholic ketoacidosis severe anion gap metabolic acidosis secondary to alcohol abuse. Also has an ISAURA. Critical Care Time: The high probability of a clinically significant, sudden or life threatening deterioration of the patient's [renal, respiratory, gastrointestinal] system(s) required my full and direct attention, intervention and personal management. The critical care time is as shown. This time is in addition to time spent performing any reported procedures but includes the following: [x] Data and vital sign review and interpretation [x] Patient assessment, examination and intervention [x] Documentation [x] Medication orders and management Critical Care Time (min): 65 Coding Level of Care Code Acute Code for Chg Fwd Diagnoses Transaminitis R74.01 Ketoacidosis E87.29 High anion gap metabolic acidosis E87.29 Alcoholic ketoacidosis E87.29 Diarrhea R19.7 Nausea & vomiting R11.2 Vomiting type: unspecified Alcoholic peripheral neuropathy G62.1 Acute kidney injury N17.9
[2024-08-11] MEDS: sodium chloride 0.9% 1,000 ML 125 ML IV (14:50)
[2024-08-11] MEDS: sodium bicarbonate 150 MEQ in dextrose 5% 1,000 ML 100 MEQ IV (14:52)
[2024-08-11] MEDS: thiamine 500 MG in sodium chloride 0.9% (100 ml) 100 ML 210 MG IV (14:54)
[2024-08-11] MEDS: heparin 5,000 unit/mL INJ 1 mL 5000 UNIT SUBCUT (15:00)
[2024-08-11 15:12] LABS: Troponin 5 2HR Delta 0.00001 ABS# (0-10)
[2024-08-11 15:23] LABS: Amphetamines Screen Urine Negative (Negative); Barbiturates Screen Urine Negative (Negative); Benzodiazepines Screen Urine Negative (Negative); Cocaine Screen Urine Negative (Negative); Opiate Screen Urine Negative (Negative); PCP Screen Urine Negative (Negative); THC Screen Urine Positive (Negative)
[2024-08-11] MEDS: vancomycin 1,750 MG/350 ML PIGGYBACK 175 MG IV (15:28)
[2024-08-11] MEDS: lactated ringers 1,000 ML 125 ML IV (15:34)
[2024-08-11] MEDS: piperacillin-tazobactam 3.375 GM in sodium chloride 0.9% (plus) 50 ML IV (15:34)
[2024-08-11 16:05] LABS: Anion Gap 40.5 (5-19); Blood Urea Nitrogen 13 mg/dL (6-20); Chloride 89 mmol/L (98-107); Creatinine Clr Calc Pharmacy 65.0891; Glomerular Filtration Rate 71.3 mL/min (90-130); Glucose 152 mg/dL (65-115); Magnesium 1.6 mg/dL (1.7-2.3); Osmolality Calculated 271 mOsm/kg (285-295); Phosphorus 2.5 mg/dL (2.5-4.5); Potassium 4.5 mmol/L (3.5-5.1); Sodium 129 mmol/L (136-145)
[2024-08-11 16:09] LABS: Carbon Dioxide 4 mmol/L (22-29)
[2024-08-11 16:24] LABS: Potassium, Radom Urine 62 mmol/L; Urine Creatinine 49 mg/dL (28-217); Urine Random Sodium 79 mmol/L
[2024-08-11 16:30] LABS: Creatinine Urine, Random 49 mg/dL (28-217)
[2024-08-11 16:31] LABS: Urine Random Chloride 15 mmol/L
[2024-08-11] MEDS: morphine 4 mg/mL SDV 1 mL 2 MG IVP (16:39)
[2024-08-11 16:57] LABS: Microalbum Creatinine Ratio Ur 3755 mg/dL (0-20); Microalbumin Random Urine 184 ug/dL (0-20)
[2024-08-11] MEDS: folic acid 1 MG, multivitamin inj 10 ML, thiamine 100 MG in sodium chloride 0.9% 1,000 ML 252.8 MG IV (17:20)
[2024-08-11] MEDS: magnesium sulfate premix 1 GM/100 ML PIGGYBACK IV ×2 (18:17→23:36)
[2024-08-11 18:52] LABS: Blood Urea Nitrogen 14 mg/dL (6-20); Calcium 6.6 mg/dL (8.5-10.5); Chloride 96 mmol/L (98-107); Creatinine Clr Calc Pharmacy 73.2253; Glomerular Filtration Rate 81.6 mL/min (90-130); Glucose 119 mg/dL (65-115); Magnesium 1.5 mg/dL (1.7-2.3); Osmolality Calculated 270 mOsm/kg (285-295); Phosphorus 1.6 mg/dL (2.5-4.5); Sodium 129 mmol/L (136-145)
[2024-08-11 18:55] LABS: Troponin 5 6HR Delta 0.00001 ng/L (0-12)
[2024-08-11 19:08] LABS: Anion Gap 32.2 (5-19); Potassium 4.2 mmol/L (3.5-5.1)
[2024-08-11 19:09] LABS: Carbon Dioxide 5 mmol/L (22-29)
--- NOTE | 2024-08-11 19:50 | ECG_ITS ---
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 Measurements Intervals [place] Rate: 105 P: 58 [place]: 128 QRS: 83 QRSD: 84 T: 75 QT: 349 QTc: 462 Interpretive Statements SINUS TACHYCARDIA LOW QRS VOLTAGE IN PRECORDIAL LEADS [QRS DEFLECTION < 1.0 mV IN CHEST LEADS] ABNORMAL RHYTHM ECG Compared to ECG 08/11/2024 14:10:02 Low QRS voltage now present Electronically Signed On 08-12-2024 18:05:11 WEB DESIGN SPECIALIST by Shirley Gomes M.D. [email or web address]
[2024-08-11] MEDS: nicotine 21 mg Patch 1 PATCH TRANSDERMA (21:17)
[2024-08-11 22:30] LABS: Anion Gap 29.4 (5-19); Blood Urea Nitrogen 13 mg/dL (6-20); Calcium 6.8 mg/dL (8.5-10.5); Chloride 95 mmol/L (98-107); Creatinine Clr Calc Pharmacy 73.2253; Glomerular Filtration Rate 81.6 mL/min (90-130); Glucose 120 mg/dL (65-115); Magnesium 1.7 mg/dL (1.7-2.3); Osmolality Calculated 265 mOsm/kg (285-295); Phosphorus 1.3 mg/dL (2.5-4.5); Potassium 3.4 mmol/L (3.5-5.1); Sodium 127 mmol/L (136-145)
[2024-08-11 22:35] LABS: Carbon Dioxide 6 mmol/L (22-29)
[2024-08-11 23:22] LABS: Base Excess VBG -21.8 mmol/L (-3.0-3.0); Blood Gas Operator Identificat JDB; Blood Gas Sample Site Not specified; Blood Gas Sample Type Venous; HCO3 VBG 6.1 mmol/L (24-28); PO2 VBG 97.3 mmHg (25-40); Venous Blood Gas Hematocrit 31.5 % (37-47)
[2024-08-11] MEDS: ondansetron 2 mg/ML SDV 2 mL 4 MG IVP (23:33)
[2024-08-11] MEDS: lactated ringers 1,000 ML 150 ML IV (23:35)
[2024-08-11] MEDS: potassium phosphate (mEq K) 40 MEQ in sodium chloride 0.9% (100 ml) 100 ML 27.25 MEQ IV (23:41)
[2024-08-12] VITALS (152 sets, daily range): BP systolic 96–130; BP diastolic 62–90; PULSE 85–132; RESP 14–32; TEMP 37–37.7; O2SAT 88–100
[2024-08-12] MEDS: sodium bicarbonate 8.4% 1 mEq/mL 50mL Syr 150 MEQ (01:15)
[2024-08-12] MEDS: sodium bicarbonate 150 MEQ in dextrose 5% 1,000 ML 100 MEQ IV (01:28)
[2024-08-12] MEDS: piperacillin-tazobactam 3.375 GM in sodium chloride 0.9% (plus) 50 ML IV ×3 (01:41→15:41)
[2024-08-12] MEDS: heparin 5,000 unit/mL INJ 1 mL 5000 UNIT SUBCUT ×2 (04:13→15:33)
[2024-08-12] MEDS: magnesium sulfate premix 1 GM/100 ML PIGGYBACK IV (04:16)
--- NOTE | 2024-08-12 04:43 | PC.NURSE ---
Fluid rate Received telephone order from Dr. Teresa at approximately [id number] to run lactated ringers at 100 ml/hr. Rate on pump changed to reflect this order.
[2024-08-12 05:11] LABS: Blood Gas Allen Test Pos; Blood Gas Sample Type Arterial
[2024-08-12 05:17] LABS: Ketone (Acetest) Serum Positive (Negative)
[2024-08-12 05:18] LABS: Blood Gas Operator Identificat JDB; Blood Gas Sample Site Radial, right; Blood Gas Tidal Volume 0.55
[2024-08-12 05:21] LABS: ABG PCO2 27.1 mmHg (35-45); ABG PH Result 7.23 (7.35-7.45); Arterial Blood Gas Hematocrit 30.3 % (37-47); Base Excess ABG -14.7 mmol/L (-2.0-2.0); HCO3 ABG 11.4 mmol/L (22-26); Oxygen Device ROOM AIR; PO2 ABG 97.7 mmHg (80.0-100.0); PO2 FiO2 Ratio Arterial Blood 465
[2024-08-12 05:29] LABS: Alanine Aminotransferase 11 U/L (0-33); Albumin Level 3.3 g/dL (3.5-5.2); Alkaline Phosphatase 79 U/L (35-105); Aspartate Amino Transferase 18 U/L (0-32); Blood Urea Nitrogen 10 mg/dL (6-20); Calcium 6.6 mg/dL (8.5-10.5); Carbon Dioxide 11 mmol/L (22-29); Chloride 96 mmol/L (98-107); Globulin 2.8 g/dL (1.3-4.6); Glomerular Filtration Rate 95.2 mL/min (90-130); Glucose 191 mg/dL (65-115); Magnesium 2.7 mg/dL (1.7-2.3); Osmolality Calculated 272 mOsm/kg (285-295); Phosphorus 1.6 mg/dL (2.5-4.5); Sodium 129 mmol/L (136-145); Total Bilirubin 0.3 mg/dL (0.15-1.2); Total Protein 6.1 g/dL (6.6-8.7)
[2024-08-12 05:32] LABS: Lactate (Lactic Acid level) 0.6 mmol/L (0.5-2.2)
[2024-08-12 06:47] LABS: Anion Gap 22.6 (5-19); Blood Urea Nitrogen 9 mg/dL (6-20); Calcium 6.9 mg/dL (8.5-10.5); Carbon Dioxide 14 mmol/L (22-29); Chloride 98 mmol/L (98-107); Glomerular Filtration Rate 95.2 mL/min (90-130); Glucose 165 mg/dL (65-115); Magnesium 2.5 mg/dL (1.7-2.3); Osmolality Calculated 276 mOsm/kg (285-295); Phosphorus 1.1 mg/dL (2.5-4.5); Sodium 132 mmol/L (136-145)
[2024-08-12 06:50] LABS: Potassium 2.6 mmol/L (3.5-5.1)
[2024-08-12] MEDS: lidocaine 1% 5 ML in potassium chloride premix 100 ML 26.25 ML IV (07:47)
[2024-08-12] MEDS: pantoprazole 40 mg SDV IVP (07:48)
[2024-08-12] MEDS: thiamine 100 mg/mL 2mL SDV IVP (07:49)
--- NOTE | 2024-08-12 07:49 | XR_ITS ---
WS: [id number] XR chest 1V portable [id number] REASON FOR EXAM: post PICC insertion FINDINGS: Right arm PICC line placement. Right arm PICC line placement with the tip of the catheter in the distal superior vena cava in proper position for use. Catheter position was discussed over the phone with the soil technologist at 8:42 a.m. XR/XR chest 1V portable [id number] IMPRESSION: PICC line placement in proper position.
--- NOTE | 2024-08-12 07:53 | P.PN_ITS ---
Documented by User: Ted Lopez 08/12/24 11:10 Subjective 2 Subjective: Patient was seen this morning. No acute overnight events. She reports feeling a little better this morning and states that chest pains have improved slightly. She states that she is still having some cough and diarrhea but stools are beginning to become a little more solid. She also reports that she has noticed some mild intermittent RLQ abdominal pain overnight. Abdomen was non-tender to palpation this morning. Patient is currently NPO. Vitals/I&O/Wt Last Vital Signs Temp 99.8 F H 08/12/24 05:45 Pulse 112 H 08/12/24 06:00 Resp 17 08/12/24 04:00 BP 111/80 08/12/24 03:30 Pulse Ox 99 08/12/24 04:00 O2 Del Method Room Air 08/11/24 15:25 08/11/24 08/12/24 08/12/24 22:59 06:59 14:59 Intake Total 2339.950 / 4339.215 548.0512 / 5071.9579 Output Total 300 / 300 Balance 2039.950 / 4039.843 040.3101 / 4771.9579 Weight last 48 hrs Weight 49.895 kg Weight 49.895 kg Weight 58.967 kg Physical Exam 2 Const: COMMON NORMALS: patient oriented x3 Resp: COMMON NORMALS: clear to auscultation bilaterally AUSCULTATION: clear to auscultation bilaterally Cardio: COMMON NORMALS: regular rate, regular rhythm, S1 normal heart sound present, S2 normal heart sound present and No murmurs present (Cardio) RATE: regular rate RHYTHM: regular rhythm HEART SOUNDS: S1 normal heart sound present and S2 normal heart sound present GI: COMMON NORMALS: Normal to inspection, nondistended, normoactive bowel sounds present and non-tender Neuro: COMMON NORMALS: patient oriented x3 Data 08/12/24 10:32 08/12/24 11:17 Micro: Microbiology 08/11/24 14:36 Blood Culture - Preliminary Blood SPECIMEN COLLECTED 08/11/24 14:28 Blood Culture - Preliminary Blood SPECIMEN COLLECTED A&P Assessment and plan (1) Transaminitis: (2) Diarrhea: (3) Acute kidney injury: (4) Acute hypokalemia: (5) Ketoacidosis: (6) High anion gap metabolic acidosis: (7) Alcoholic ketoacidosis: Plan Plan #Alcoholic ketoacidosis #Severe high anion gap metabolic acidosis most likely secondary to alcohol abuse #Acute kidney injury secondary to prerenal cause #Nausea vomiting diarrhea #Mildly elevated liver enzymes most likely secondary to alcohol use #Severely hemoconcentrated #Alcohol peripheral neuropathy #Not on any medications at home ? Patient presented with nausea vomiting diarrhea severe dehydration most likely secondary to alcohol binge drinking episode on the day absorbable. She is severely dehydrated at this time all labs are hemoconcentrated. She is tachypneic tachycardic and has severe anion gap metabolic acidosis. Denies drinking any other type of alcohol with alcohol mental alcohol at this time. She states she drank vodka. Patient denies being on any medications at home therefore euglycemic DKA unlikely. She does not have a history of diabetes ? Check serum osmolality to check for osmolar gap although unlikely high secondary to drinking vodka. ? Placed on bicarb drip with D5, ordered thiamine 100 IV push x 1 now ? Ordered thiamine 500 IV x 1 ? Placed on folic acid thiamine daily ? Placed on LR at 125 cc/h ? Check BMP, phosphorus, magnesium every 4 hours ? Patient at risk of refeeding syndrome and severe electrolyte imbalance ? At this time continue to hydrate patient and watch for electrolyte abnormalities and replete as needed ? Empirically placed on vancomycin and Zosyn ? Check CT chest abdomen pelvis to rule out other etiology however unlikely at this time ? Will check VBG in 4 hours ? At this time there is no acute indication for dialysis ? Consult nephrology. Appreciate recommendations ? Check CBC CMP mag phosphorus in a.m. ? Check c.diff, stool culture, ova parasite screen ? Check hemoglobin A1c ? Patient is not to be given any insulin at this time. 08/12/2024 - Continue folic acid and thiamine. - Continue LR and calcium carbonate. - Continue on Zosyn. Discontinued Vancomycin. - Serum osmolality pending. - Check BMP, phosphorus, magnesium every 4 hours - Chest X-ray showed stable chest without acute abnormality. - CT chest revealed multiple ground-glass opacities in the posterolateral lung bases which could reflect atelectasis or small airway infectious/inflammatory process including viral pneumonias. - CT Ab/Pelvis showed evidence of 1) Distended fluid-filled stomach, may indicate gastritis. 2) Cholelithiasis - EKG - sinus tachycardia - Blood culture pending - Drug screen pending - Patient is not to be given any insulin at this time. - Nephrology following. PDMP PDMP Reviewed: Not Reviewed Coding Level of Care Code 36692 Diagnoses Transaminitis R74.01 Diarrhea R19.7 Acute kidney injury N17.9 Acute hypokalemia E87.6 Ketoacidosis E87.29 High anion gap metabolic acidosis E87.29 Alcoholic ketoacidosis E87.29 Documented by User: Tracy Dupree MD 08/12/24 13:58 Data 08/12/24 10:32 08/12/24 11:17 A&P Assessment and plan (1) Transaminitis: (2) Diarrhea: (3) Acute kidney injury: (4) Acute hypokalemia: (5) Ketoacidosis: (6) High anion gap metabolic acidosis: (7) Alcoholic ketoacidosis: Plan Plan #Alcoholic ketoacidosis #Severe high anion gap metabolic acidosis most likely secondary to alcohol abuse #Acute kidney injury secondary to prerenal cause #Nausea vomiting diarrhea #Mildly elevated liver enzymes most likely secondary to alcohol use #Severely hemoconcentrated #Alcohol peripheral neuropathy #Not on any medications at home ? Patient presented with nausea vomiting diarrhea severe dehydration most likely secondary to alcohol binge drinking episode on the day absorbable. She is severely dehydrated at this time all labs are hemoconcentrated. She is tachypneic tachycardic and has severe anion gap metabolic acidosis. Denies drinking any other type of alcohol with alcohol mental alcohol at this time. She states she drank vodka. Patient denies being on any medications at home therefore euglycemic DKA unlikely. She does not have a history of diabetes ? Check serum osmolality to check for osmolar gap although unlikely high secondary to drinking vodka. ? Placed on bicarb drip with D5, ordered thiamine 100 IV push x 1 now ? Ordered thiamine 500 IV x 1 ? Placed on folic acid thiamine daily ? Placed on LR at 125 cc/h ? Check BMP, phosphorus, magnesium every 4 hours ? Patient at risk of refeeding syndrome and severe electrolyte imbalance ? At this time continue to hydrate patient and watch for electrolyte abnormalities and replete as needed ? Empirically placed on vancomycin and Zosyn ? Check CT chest abdomen pelvis to rule out other etiology however unlikely at this time ? Will check VBG in 4 hours ? At this time there is no acute indication for dialysis ? Consult nephrology. Appreciate recommendations ? Check CBC CMP mag phosphorus in a.m. ? Check c.diff, stool culture, ova parasite screen ? Check hemoglobin A1c ? Patient is not to be given any insulin at this time. 08/12/2024 - Continue folic acid and thiamine. - Continue LR and calcium carbonate. - Continue on Zosyn. Discontinued Vancomycin. - Serum osmolality pending. - Check BMP, phosphorus, magnesium every 4 hours - Chest X-ray showed stable chest without acute abnormality. - CT chest revealed multiple ground-glass opacities in the posterolateral lung bases which could reflect atelectasis or small airway infectious/inflammatory process including viral pneumonias. - CT Ab/Pelvis showed evidence of 1) Distended fluid-filled stomach, may indicate gastritis. 2) Cholelithiasis - EKG - sinus tachycardia - Blood culture pending - Drug screen pending - Nephrology following. Continue to replete phosphorus magnesium potassium PDMP PDMP Reviewed: Not Reviewed Attestations 2 Medical Necessity Statement*: Critically ill requiring ICU stay with bicarb drip and fluids. Patient is alcoholic ketoacidosis severe anion gap metabolic acidosis secondary to alcohol abuse. Also has an ISAURA. Diagnoses Transaminitis R74.01 Diarrhea R19.7 Acute kidney injury N17.9 Acute hypokalemia E87.6 Ketoacidosis E87.29 High anion gap metabolic acidosis E87.29 Alcoholic ketoacidosis E87.29
--- NOTE | 2024-08-12 09:02 | PICC.NOTE ---
Double lumen_PICC placed to right basilic vein. Referred to vascular access nurse for PICC placement due to poor access and need for IV potassium. Risks and benefits discussed and informed consent obtained from pt. Right arm assessed with right basilic vein measuring 5.0 mm, straight, and apparent best choice for placement. Using sterile technique and MST, right basilic vein accessed x 1 stick. Mid-arm circumference measured 10 cm from right AC 25 cm. Trimmed cath 38 cm with 1 cm external length noted. CXR shows tip in distal SVC, in good position for use per radiologist. Line secured with stat-lock. Insertion site covered with Biopatch and TSM. Report given to bedside nurse, KORINA Velázquez.
[2024-08-12] MEDS: folic acid 5 mg/ml MDV 10mL 1 MG IVP (09:03)
[2024-08-12] MEDS: calcium carbonate 600 mg Tablet PO ×3 (09:03→20:56)
[2024-08-12] MEDS: lactated ringers 500 ML 150 ML IV ×4 (09:04→21:00)
[2024-08-12] MEDS: potassium phosphate (mEq K) 40 MEQ in sodium chloride 0.9% (100 ml) 100 ML 27.25 MEQ IV (09:04)
[2024-08-12] MEDS: lactated ringers 500 ML 999 ML IV (09:06)
[2024-08-12] MEDS: morphine 4 mg/mL SDV 1 mL 2 MG IVP (09:22)
--- NOTE | 2024-08-12 09:28 | P.PN_ITS ---
Subjective 2 Subjective: seen and examined. still not eating. has decreased nausea. denies diarrhea. no sob or cp or hackett Medications: Reviewed: Yes Medication Review Details: Current Medications Calcium Carbonate (Calcium Carbonate 600 Mg Tablet) 600 mg PO TID [facility] Last Admin: 08/12/24 09:03 Dose: 600 mg Folic Acid (Folic Acid 5 Mg/Ml Mdv 10ml) 1 mg IVP DAILY [facility] Last Admin: 08/12/24 09:03 Dose: 1 mg Heparin Sodium (Porcine) (Heparin 5,000 Unit/Ml Inj 1 Ml) 5,000 unit SUBCUT Q12H [facility] Last Admin: 08/12/24 04:13 Dose: 5,000 unit Piperacillin Sod/Tazobactam (Sod 3.375 gm/ Sodium Chloride) 50 mls @ 12.5 mls/hr IV Q8H [facility]; Protocol Last Admin: 08/12/24 07:48 Dose: 12.5 mls/hr Lactated Ringer's (Lactated Ringers) 1,000 mls @ 125 mls/hr IV .Q8H [facility] Last Admin: 08/12/24 07:43 Dose: Not Given Lactated Ringer's (Lactated Ringers) 1,000 mls @ 150 mls/hr IV .Q6H40M [facility] Last Infusion: 08/12/24 09:04 Dose: 0 mls/hr Lactated Ringer's (Lactated Ringers) 500 mls @ 150 mls/hr IV .Q3H20M [facility] Last Admin: 08/12/24 09:04 Dose: 150 mls/hr Potassium Phosphate 40 meq/ (Sodium Chloride) 109.0909 mls @ 27.25 mls/hr IV ONCE ONE Stop: 08/12/24 12:06 Last Admin: 08/12/24 09:04 Dose: 27.25 mls/hr Metoclopramide HCl (Metoclopramide 5 Mg/Ml Sdv 2 Ml) 10 mg IVP Q6H PRN PRN Reason: NAUSEA AND VOMITING Morphine Sulfate (Morphine 4 Mg/Ml Sdv 1 Ml) 2 mg IVP Q4H PRN PRN Reason: SEVERE PAIN Last Admin: 08/12/24 09:22 Dose: 2 mg Nicotine (Nicotine 21 Mg Patch) 1 patch TRANSDERMA Q24H [facility] Last Admin: 08/11/24 21:17 Dose: 1 patch Ondansetron HCl (Ondansetron 2 Mg/Ml Sdv 2 Ml) 4 mg IVP Q6H PRN PRN Reason: NAUSEA AND VOMITING Last Admin: 08/11/24 23:33 Dose: 4 mg Pantoprazole Sodium (Pantoprazole 40 Mg Sdv) 40 mg IVP DAILY [facility] Last Admin: 08/12/24 07:48 Dose: 40 mg Thiamine HCl (Thiamine 100 Mg/Ml 2ml Sdv) 100 mg IVP DAILY [facility] Last Admin: 08/12/24 07:49 Dose: 100 mg Vitals/I&O/Wt Last Vital Signs Temp 99.8 F H 08/12/24 05:45 Pulse 112 H 08/12/24 06:00 Resp 17 08/12/24 04:00 BP 111/80 08/12/24 03:30 Pulse Ox 99 08/12/24 04:00 O2 Del Method Room Air 08/11/24 15:25 08/11/24 08/12/24 08/12/24 22:59 06:59 14:59 Intake Total 2339.950 / 4339.027 183.4250 / 5071.9579 931.667 / 931.667 Output Total 300 / 300 Balance 2039.950 / 4039.142 275.6539 / 4771.9579 931.667 / 931.667 Weight last 48 hrs Weight 49.895 kg Weight 49.895 kg Weight 58.967 kg Physical Exam 2 Narrative: sitting up, not comfortable. but no resp distress VS noted, tachycardic Heent- nc/at, eomi, anicteric neck supple lungs clear heart tachy abd soft, +bs ext no edema neuro- a,a, o x 3 Data 08/11/24 12:08 08/12/24 06:10 Micro: Microbiology 08/11/24 14:36 Blood Culture - Preliminary Blood SPECIMEN COLLECTED 08/11/24 14:28 Blood Culture - Preliminary Blood SPECIMEN COLLECTED A&P Assessment and plan (1) Ketoacidosis: 33 year old female ETOH use, malnutrition, and depression. Pt drank sugnificant vodka on Saturday while watching the superbowl, last night she developed n/v/d. she now presents with: 1. inc AGMA of 46 with + ketoness- likely starvation ketoacidosis -please check serum osmolality- her calculated osmolality is 268 -anion gap has improved to 20 change ivf to LR -would avoid NS as it can cause a hyperchloremic metabolic acidosis -repeat abg -she is having refeeding syndrome. as she is malnourished- please continue MVI, FOLATE, THIAMINE. REPLCAE MAGNESIUM, POTASSIUM, AND PHOSPHORUS PLEASE CHECK CHEM 7 MG PHOS EVERY 6 HOURS 2. ISAURA- send urine electrolytes- likely prerneal vs ATN u/a w/ 1+ blood, 4+ protein, SG 1017 renal fxn improved w/ ivf however she still has albuminuria 3. hyponatremia- check ur electrolytes and cr. can be from ISAURA vs beed drinkers hyponatremia check tsh level -serum na is improving 4. albumin of 5.5- she was likely hemoconcentrated from volume depletion -repeat albumin was 3.3 seen and examined w/ aid of a RN using A/V equipment pt consents to telemed visit and treatment multiple phone calls w/ RN and doctros overnight Plan ivf, replace electrolytes -see above PDMP PDMP Reviewed: Not Reviewed Attestations 2 Medical Necessity Statement*: severe metabolic acidosis, electrolyte abnormalities Time Spent in Patient Care: Greater than 35 minutes (>than 50% of time spent in counselling and/or direct pt care on unit) . Coding Level of Care Code Acute Code for Chg Fwd Diagnoses Ketoacidosis E87.29
[2024-08-12 10:48] LABS: Eosinophils % 0.2 %; Nucleated Red Blood Cells % 0 %
[2024-08-12 11:22] LABS: Blood Urea Nitrogen 7 mg/dL (6-20); Carbon Dioxide 16 mmol/L (22-29); Chloride 101 mmol/L (98-107); Creatinine Clr Calc Pharmacy 97.6337; Glomerular Filtration Rate 113.8 mL/min (90-130); Glucose 95 mg/dL (65-115); Magnesium 2.2 mg/dL (1.7-2.3); Osmolality Calculated 276 mOsm/kg (285-295); Sodium 134 mmol/L (136-145)
[2024-08-12 11:28] LABS: 25 Hydroxy Vitamin D 6 ng/mL (30-100)
[2024-08-12 11:29] LABS: Anion Gap 20.9 (5-19); Basophils % 0.2 %; Hematocrit 25.8 % (36-47); Lymphocytes # 0.8 10^3/uL (0.8-4.8); Lymphocytes % 15.5 %; Mean Corpuscular HGB Conc 32.9 g/dL (30-55); Mean Corpuscular Hemoglobin 32.7 pg (27-33); Mean Corpuscular Volume 99.2 fl (85-98); Mean Platelet Volume 9.6 fL (7.4-10.4); Monocytes # 0.4 10^3/uL (0.2-0.9); Monocytes % 8.2 %; Neutrophils # 4.05 10^3/uL (1.8-7.7); Neutrophils % 75.3 %; Platelet Count 128 10^3/cmm (157-399); Potassium 3.9 mmol/L (3.5-5.1); Red Cell Distribution Width 14.4 % (12.1-15.1); White Blood Count 5.37 10^3/uL (3.29-11.43)
[2024-08-12 11:33] LABS: Creatine Phosphokinase 90 U/L (26-192)
[2024-08-12 11:34] LABS: Thyroid Stimulating Hormone 0.22 uIU/mL (0.27-4.20)
[2024-08-12 11:46] LABS: Alanine Aminotransferase 11 U/L (0-33); Albumin Level 3.3 g/dL (3.5-5.2); Alkaline Phosphatase 80 U/L (35-105); Blood Urea Nitrogen 6 mg/dL (6-20); Calcium 7.1 mg/dL (8.5-10.5); Carbon Dioxide 16 mmol/L (22-29); Chloride 97 mmol/L (98-107); Creatinine Clr Calc Pharmacy 97.6337; Globulin 2.8 g/dL (1.3-4.6); Glomerular Filtration Rate 113.8 mL/min (90-130); Glucose 99 mg/dL (65-115); Magnesium 2.2 mg/dL (1.7-2.3); Osmolality Calculated 272 mOsm/kg (285-295); Phosphorus 2.2 mg/dL (2.5-4.5); Sodium 132 mmol/L (136-145); Total Bilirubin 0.3 mg/dL (0.15-1.2); Total Protein 6.1 g/dL (6.6-8.7)
[2024-08-12 11:48] LABS: Anion Gap 23.2 (5-19); Potassium 4.2 mmol/L (3.5-5.1)
[2024-08-12 11:49] LABS: Aspartate Amino Transferase 22 U/L (0-32)
[2024-08-12] MEDS: vancomycin 1,500 MG/300 ML PIGGYBACK 200 MG IV (15:34)
[2024-08-12 16:04] LABS: Bilirubin Urine Negative (Negative); Blood Urine Trace (Negative); Glucose Urine UA Negative (Normal); Ketones Urine 2+ (Negative); Leukocyte Esterase Urine Negative (Negative); Nitrate Urine Negative (Negative); Protein Urine 1+ (Negative); Specific Gravity, Urine 1.009 (1.005-1.030); Urine Appearance Clear (CLEAR); Urine Color Yellow (Yellow); Urobilinogen Urine 0.2 mg/dL (Negative); pH Urine 6.5 (5-7)
[2024-08-12 16:10] LABS: Bacteria Urine None Seen /hpf; Hyaline Casts Urine 0-4 /lpf; RBC Urine 0-2 /hpf (0-2); Squamous Epithelial Cell Urine 0-5 /hpf (0-5); WBC Urine 0-5 /hpf (0-5)
[2024-08-12 18:29] LABS: Alanine Aminotransferase 11 U/L (0-33); Albumin Level 3.2 g/dL (3.5-5.2); Alkaline Phosphatase 80 U/L (35-105); Blood Urea Nitrogen 5 mg/dL (6-20); Calcium 7.8 mg/dL (8.5-10.5); Carbon Dioxide 14 mmol/L (22-29); Chloride 98 mmol/L (98-107); Creatinine Clr Calc Pharmacy 117.1605; Globulin 2.8 g/dL (1.3-4.6); Glomerular Filtration Rate 140.4 mL/min (90-130); Glucose 137 mg/dL (65-115); Osmolality Calculated 275 mOsm/kg (285-295); Sodium 133 mmol/L (136-145); Total Bilirubin 0.4 mg/dL (0.15-1.2)
[2024-08-12 18:33] LABS: Anion Gap 24.5 (5-19); Aspartate Amino Transferase 25 U/L (0-32); Potassium 3.5 mmol/L (3.5-5.1)
[2024-08-12 18:35] LABS: Phosphorus 0.9 mg/dL (2.5-4.5)
--- NOTE | 2024-08-12 19:00 | PHA.VACGOAL ---
Vancomycin Goal - Goal Vancomycin Goal:: 15-20 mg/L Vancomycin Indication:: Other (BACTEREMIA) - Therapy Current therapy:: Pip/Tazo Day of therpy:: Day [1]of [] . Actual body weight (kg): 49.895 kg - Data Labs: WBC 5.37 10^3/uL (3.29-11.43) 08/12/24 10:32 RBC 2.60 10^6/uL (3.85-5.65) L 08/12/24 10:32 Hgb 8.50 g/dL (11.27-16.99) L D 08/12/24 10:32 Hct 25.8 % (36-47) L D 08/12/24 10:32 MCV 99.2 fl (85-98) H D 08/12/24 10:32 MCH 32.7 pg (27-33) 08/12/24 10:32 MCHC 32.9 g/dL (30-55) D 08/12/24 10:32 RDW 14.4 % (12.1-15.1) 08/12/24 10:32 Sodium 133 mmol/L (136-145) L 08/12/24 17:52 Potassium 3.5 mmol/L (3.5-5.1) 08/12/24 17:52 Chloride 98 mmol/L (98-107) 08/12/24 17:52 Carbon Dioxide 14 mmol/L (22-29) L 08/12/24 17:52 Anion Gap 24.5 (5-19) H 08/12/24 17:52 BUN 5 mg/dL (6-20) L 08/12/24 17:52 Creatinine 0.5 mg/dL (0.5-0.9) 08/12/24 17:52 GFR Calculation 140.4 mL/min (90-130) H 08/12/24 17:52 Treatment plan:: new consult Regimen:: New start vancomycin for bacteremia. No history of vancomycin found. Received 1500 mg load dose. Started on maintenance dose of 1000 mg q12h based on population based pharmacokinetic nomogram. Microbiology 08/11/24 14:28 Blood Blood Culture - Preliminary Staphylococcus epidermidis
[2024-08-12] MEDS: nicotine 21 mg Patch 1 PATCH TRANSDERMA (20:58)
[2024-08-12 23:49] LABS: Amphetamines Level NEGATIVE ng/mL (<500); Barbiturates NEGATIVE ng/mL (<300); Benzodiazepines NEGATIVE ng/mL (<100); Cocaine Metabolite NEGATIVE ng/mL (<150); Marijuana Metabolite POSITIVE ng/mL (<20); Methadone Metabolite NEGATIVE ng/mL (<100); Opiates NEGATIVE ng/mL (<100); Oxidant NEGATIVE mcg/mL (<200); Phencyclidine NEGATIVE ng/mL (<25); Urine pH 5.6 (4.5-9.0)
[2024-08-13] VITALS (152 sets, daily range): BP systolic 96–145; BP diastolic 68–109; PULSE 69–144; RESP 12–114; TEMP 36.8–37.3; O2SAT 78–100
[2024-08-13] MEDS: piperacillin-tazobactam 3.375 GM in sodium chloride 0.9% (plus) 50 ML IV ×4 (00:34→23:43)
[2024-08-13] MEDS: lactated ringers 500 ML 150 ML IV ×3 (00:34→07:56)
[2024-08-13 01:00] LABS: Alanine Aminotransferase 13 U/L (0-33); Albumin Level 3.3 g/dL (3.5-5.2); Alkaline Phosphatase 77 U/L (35-105); Blood Urea Nitrogen 4 mg/dL (6-20); Calcium 8.5 mg/dL (8.5-10.5); Carbon Dioxide 19 mmol/L (22-29); Chloride 103 mmol/L (98-107); Creatinine Clr Calc Pharmacy 117.1605; Globulin 2.4 g/dL (1.3-4.6); Glomerular Filtration Rate 140.4 mL/min (90-130); Glucose 94 mg/dL (65-115); Magnesium 1.9 mg/dL (1.7-2.3); Osmolality Calculated 279 mOsm/kg (285-295); Phosphorus 1.1 mg/dL (2.5-4.5); Sodium 136 mmol/L (136-145); Total Bilirubin 0.3 mg/dL (0.15-1.2); Total Protein 5.7 g/dL (6.6-8.7)
[2024-08-13 01:15] LABS: Anion Gap 17.3 (5-19); Aspartate Amino Transferase 27 U/L (0-32); Potassium 3.3 mmol/L (3.5-5.1)
[2024-08-13] MEDS: VANCOMYCIN ADD-Vantage 1,000 MG in 0.9% NaCl ADD-Vantage 250 ML 250 MG IV ×2 (03:30→15:10)
[2024-08-13] MEDS: heparin 5,000 unit/mL INJ 1 mL 5000 UNIT SUBCUT (03:30)
[2024-08-13 07:02] LABS: Alanine Aminotransferase 14 U/L (0-33); Albumin Level 3.1 g/dL (3.5-5.2); Alkaline Phosphatase 70 U/L (35-105); Anion Gap 19.6 (5-19); Aspartate Amino Transferase 34 U/L (0-32); Blood Urea Nitrogen 3 mg/dL (6-20); Calcium 8.1 mg/dL (8.5-10.5); Carbon Dioxide 19 mmol/L (22-29); Chloride 100 mmol/L (98-107); Creatinine Clr Calc Pharmacy 117.1605; Globulin 2.4 g/dL (1.3-4.6); Glomerular Filtration Rate 140.4 mL/min (90-130); Glucose 106 mg/dL (65-115); Magnesium 1.8 mg/dL (1.7-2.3); Osmolality Calculated 279 mOsm/kg (285-295); Sodium 136 mmol/L (136-145); Total Bilirubin 0.3 mg/dL (0.15-1.2); Total Protein 5.5 g/dL (6.6-8.7)
[2024-08-13 07:12] LABS: Phosphorus 0.7 mg/dL (2.5-4.5); Potassium 2.6 mmol/L (3.5-5.1)
[2024-08-13] MEDS: potassium phosphate (mEq K) 40 MEQ in sodium chloride 0.9% (100 ml) 100 ML 27.27 MEQ IV ×2 (07:37→11:31)
--- NOTE | 2024-08-13 07:46 | P.PN_ITS ---
Documented by User: Ted Lopez 08/13/24 09:27 Subjective 2 Subjective: Patient seen this morning. No acute overnight events. She is eating this morning. She states she is feeling much better this morning, with diarrhea improving. She reports improvements with chest pain and RLQ abdominal pain. She states that she has occasional RLQ pain after coughing but notices an improvement. Denies nausea, vomiting, sob. Vitals/I&O/Wt Last Vital Signs Temp 98.4 F 08/13/24 05:30 Pulse 85 08/13/24 06:30 Resp 15 08/13/24 06:30 BP 119/84 08/13/24 06:30 Pulse Ox 96 08/13/24 03:30 O2 Del Method Room Air 08/11/24 15:25 08/12/24 08/13/24 08/13/24 22:59 06:59 14:59 Intake Total 1350 / 4939.9459 1000 / 5939.9459 Output Total 500 / 500 Balance 850 / 4439.9459 1000 / 5439.9459 Weight last 48 hrs Weight 49.895 kg Weight 49.895 kg Weight 49.895 kg Weight 49.895 kg Weight 58.967 kg Physical Exam 2 Const: COMMON NORMALS: no acute distress and patient oriented x3 Resp: COMMON NORMALS: normal respiratory effort and clear to auscultation bilaterally AUSCULTATION: clear to auscultation bilaterally Cardio: COMMON NORMALS: regular rate, regular rhythm, S1 normal heart sound present, S2 normal heart sound present and No murmurs present (Cardio) RATE: regular rate RHYTHM: regular rhythm HEART SOUNDS: S1 normal heart sound present and S2 normal heart sound present GI: OTHER: mild tenderness on palpation Neuro: COMMON NORMALS: patient oriented x3 Data 08/13/24 11:29 08/13/24 06:15 Micro: Microbiology 08/12/24 18:03 Blood Culture - Preliminary Blood SPECIMEN COLLECTED 08/12/24 17:52 Blood Culture - Preliminary Blood SPECIMEN COLLECTED 08/11/24 14:28 Blood Culture - Preliminary Blood Staphylococcus epidermidis 08/11/24 14:36 Blood Culture - Preliminary Blood NEGATIVE TO DATE A&P Assessment and plan (1) Acute kidney injury: (2) Acute hypokalemia: (3) Ketoacidosis: (4) High anion gap metabolic acidosis: (5) Alcoholic ketoacidosis: (6) Diarrhea: (7) Transaminitis: (8) GI bleed: (9) Acute anemia: (10) Hypophosphatemia: Plan #Alcoholic ketoacidosis #Severe high anion gap metabolic acidosis most likely secondary to alcohol abuse #Acute kidney injury secondary to prerenal cause #Nausea vomiting diarrhea #Mildly elevated liver enzymes most likely secondary to alcohol use #Severely hemoconcentrated #Alcohol peripheral neuropathy #Not on any medications at home ? Patient presented with nausea vomiting diarrhea severe dehydration most likely secondary to alcohol binge drinking episode on the day absorbable. She is severely dehydrated at this time all labs are hemoconcentrated. She is tachypneic tachycardic and has severe anion gap metabolic acidosis. Denies drinking any other type of alcohol with alcohol mental alcohol at this time. She states she drank vodka. Patient denies being on any medications at home therefore euglycemic DKA unlikely. She does not have a history of diabetes ? Check serum osmolality to check for osmolar gap although unlikely high secondary to drinking vodka. ? Placed on bicarb drip with D5, ordered thiamine 100 IV push x 1 now ? Ordered thiamine 500 IV x 1 ? Placed on folic acid thiamine daily ? Placed on LR at 125 cc/h ? Check BMP, phosphorus, magnesium every 4 hours ? Patient at risk of refeeding syndrome and severe electrolyte imbalance ? At this time continue to hydrate patient and watch for electrolyte abnormalities and replete as needed ? Empirically placed on vancomycin and Zosyn ? Check CT chest abdomen pelvis to rule out other etiology however unlikely at this time ? Will check VBG in 4 hours ? At this time there is no acute indication for dialysis ? Consult nephrology. Appreciate recommendations ? Check CBC CMP mag phosphorus in a.m. ? Check c.diff, stool culture, ova parasite screen ? Check hemoglobin A1c ? Patient is not to be given any insulin at this time. 08/12/2024 - Continue folic acid and thiamine. - Continue LR and calcium carbonate. - Continue on Zosyn. Discontinued Vancomycin. - Serum osmolality pending. - Check BMP, phosphorus, magnesium every 4 hours - Chest X-ray showed stable chest without acute abnormality. - CT chest revealed multiple ground-glass opacities in the posterolateral lung bases which could reflect atelectasis or small airway infectious/inflammatory process including viral pneumonias. - CT Ab/Pelvis showed evidence of 1) Distended fluid-filled stomach, may indicate gastritis. 2) Cholelithiasis - EKG - sinus tachycardia - Blood culture pending - Drug screen pending - Patient is not to be given any insulin at this time. - Nephrology following. 08/13/2024 - Continue folic acid and thiamine. - Continue LR and calcium carbonate. - Continue on Zosyn. Start Vancomycin for bacteremia. - Monitor and replace electrolytes. Potassium 2.6 this morning from 3.5 yesterday (08/12) - TSH checked. 0.22 - Blood culture pending. - Drug screen positive marijuana. Ethlene glycol pending. - Patient is not to be given any insulin at this time. - Nephrology following. PDMP PDMP Reviewed: Not Reviewed Coding Level of Care Code 62037 Diagnoses Acute kidney injury N17.9 Acute hypokalemia E87.6 Ketoacidosis E87.29 High anion gap metabolic acidosis E87.29 Alcoholic ketoacidosis E87.29 Diarrhea R19.7 Transaminitis R74.01 GI bleed K92.2 Acute anemia D64.9 Hypophosphatemia E83.39 Documented by User: Tracy Dupree MD 08/13/24 12:01 Subjective 2 Subjective: Patient seen this morning. No acute overnight events. She is eating this morning. She states she is feeling much better this morning, with diarrhea improving. She reports improvements with chest pain and RLQ abdominal pain. She states that she has occasional RLQ pain after coughing but notices an improvement. Denies nausea, vomiting, sob. Patient's hemoglobin has reduced to 6.80. Platelets are 106 this morning. She is having severe electrolyte abnormalities most likely secondary to refeeding syndrome. Discussed with patient that she will be staying in the hospital until electrolytes normalized. She is in agreement. Subjectively she feels a whole lot better compared to before. Data 08/13/24 11:29 08/13/24 06:15 A&P Assessment and plan (1) Acute kidney injury: (2) Acute hypokalemia: (3) Ketoacidosis: (4) High anion gap metabolic acidosis: (5) Alcoholic ketoacidosis: (6) Diarrhea: (7) Transaminitis: (8) GI bleed: (9) Acute anemia: (10) Hypophosphatemia: Plan #Alcoholic ketoacidosis #Severe high anion gap metabolic acidosis most likely secondary to alcohol abuse #Acute kidney injury secondary to prerenal cause #Nausea vomiting diarrhea #Mildly elevated liver enzymes most likely secondary to alcohol use #Severely hemoconcentrated #Alcohol peripheral neuropathy #Not on any medications at home ? Patient presented with nausea vomiting diarrhea severe dehydration most likely secondary to alcohol binge drinking episode on the day absorbable. She is severely dehydrated at this time all labs are hemoconcentrated. She is tachypneic tachycardic and has severe anion gap metabolic acidosis. Denies drinking any other type of alcohol with alcohol mental alcohol at this time. She states she drank vodka. Patient denies being on any medications at home therefore euglycemic DKA unlikely. She does not have a history of diabetes ? Check serum osmolality to check for osmolar gap although unlikely high secondary to drinking vodka. ? Placed on bicarb drip with D5, ordered thiamine 100 IV push x 1 now ? Ordered thiamine 500 IV x 1 ? Placed on folic acid thiamine daily ? Placed on LR at 125 cc/h ? Check BMP, phosphorus, magnesium every 4 hours ? Patient at risk of refeeding syndrome and severe electrolyte imbalance ? At this time continue to hydrate patient and watch for electrolyte abnormalities and replete as needed ? Empirically placed on vancomycin and Zosyn ? Check CT chest abdomen pelvis to rule out other etiology however unlikely at this time ? Will check VBG in 4 hours ? At this time there is no acute indication for dialysis ? Consult nephrology. Appreciate recommendations ? Check CBC CMP mag phosphorus in a.m. ? Check c.diff, stool culture, ova parasite screen ? Check hemoglobin A1c ? Patient is not to be given any insulin at this time. 08/12/2024 - Continue folic acid and thiamine. - Continue LR and calcium carbonate. - Continue on Zosyn. Discontinued Vancomycin. - Serum osmolality pending. - Check BMP, phosphorus, magnesium every 4 hours - Chest X-ray showed stable chest without acute abnormality. - CT chest revealed multiple ground-glass opacities in the posterolateral lung bases which could reflect atelectasis or small airway infectious/inflammatory process including viral pneumonias. - CT Ab/Pelvis showed evidence of 1) Distended fluid-filled stomach, may indicate gastritis. 2) Cholelithiasis - EKG - sinus tachycardia - Blood culture pending - Drug screen pending - Patient is not to be given any insulin at this time. - Nephrology following. 08/13/2024 - Continue folic acid and thiamine. - Continue LR and calcium carbonate. - Continue on Zosyn. Start Vancomycin for bacteremia. Staph epidermidis is most likely a contaminant. I have repeated blood cultures. If second set remains negative to date we will discontinue vancomycin. I do believe this most likely may be a contaminant. - Monitor and replace electrolytes. Potassium 2.6 this morning from 3.5 yesterday (08/12) - TSH checked. 0.22, will check free T4 - Blood culture pending. - Drug screen positive marijuana. Ethlene glycol pending. - Nephrology following. -Hemoglobin 6.8 today. Will order 1 unit packed RBC check iron panel ferritin TIBC occult blood test. Suspect possible gastritis secondary to repeated vomiting and retching. Will escalate Protonix to 40 IV twice daily. Will talk to general surgery for potential EGD at this time. ? Patient's hemoglobin on admission was 14 however she was severely hemoconcentrated. At this time it has reduced out of proportion to severe dehydration and will require further workup. Baseline hemoglobin is 8-10 range. ? Hold heparin SQ twice daily at this time. PDMP PDMP Reviewed: Not Reviewed Attestations 2 Medical Necessity Statement*: Requires GI bleed workup and has severe electrolyte abnormalities for which patient requires continued hospitalization. Diagnoses Acute kidney injury N17.9 Acute hypokalemia E87.6 Ketoacidosis E87.29 High anion gap metabolic acidosis E87.29 Alcoholic ketoacidosis E87.29 Diarrhea R19.7 Transaminitis R74.01 GI bleed K92.2 Acute anemia D64.9 Hypophosphatemia E83.39
[2024-08-13] MEDS: calcium carbonate 600 mg Tablet PO ×3 (09:10→20:43)
[2024-08-13] MEDS: pantoprazole 40 mg SDV IVP ×3 (09:12→23:43)
[2024-08-13] MEDS: folic acid 5 mg/ml MDV 10mL 1 MG IVP (09:15)
[2024-08-13] MEDS: thiamine 100 mg/mL 2mL SDV IVP (09:15)
--- NOTE | 2024-08-13 09:58 | P.PN_ITS ---
Subjective 2 Subjective: eating. feels better. denies n/v//d/cp Medications: Reviewed: Yes Medication Review Details: Current Medications Calcium Carbonate (Calcium Carbonate 600 Mg Tablet) 600 mg PO TID [facility] Last Admin: 08/13/24 09:10 Dose: 600 mg Folic Acid (Folic Acid 5 Mg/Ml Mdv 10ml) 1 mg IVP DAILY [facility] Last Admin: 08/13/24 09:15 Dose: 1 mg Heparin Sodium (Porcine) (Heparin 5,000 Unit/Ml Inj 1 Ml) 5,000 unit SUBCUT Q12H [facility] Last Admin: 08/13/24 03:30 Dose: 5,000 unit Piperacillin Sod/Tazobactam (Sod 3.375 gm/ Sodium Chloride) 50 mls @ 12.5 mls/hr IV Q8H [facility]; Protocol Last Admin: 08/13/24 07:50 Dose: 12.5 mls/hr Lactated Ringer's (Lactated Ringers) 500 mls @ 150 mls/hr IV .Q3H20M [facility] Last Admin: 08/13/24 07:56 Dose: 150 mls/hr Vancomycin HCl 1,000 mg/ (Sodium Chloride) 250 mls @ 250 mls/hr IV Q12H [facility] Last Admin: 08/13/24 03:30 Dose: 250 mls/hr Potassium Phosphate 40 meq/ (Sodium Chloride) 109.0909 mls @ 27.273 mls/hr IV Q4H [facility] Stop: 08/13/24 15:59 Last Admin: 08/13/24 07:37 Dose: 27.27 mls/hr Metoclopramide HCl (Metoclopramide 5 Mg/Ml Sdv 2 Ml) 10 mg IVP Q6H PRN PRN Reason: NAUSEA AND VOMITING Morphine Sulfate (Morphine 4 Mg/Ml Sdv 1 Ml) 2 mg IVP Q4H PRN PRN Reason: SEVERE PAIN Last Admin: 08/12/24 09:22 Dose: 2 mg Nicotine (Nicotine 21 Mg Patch) 1 patch TRANSDERMA Q24H [facility] Last Admin: 08/12/24 20:58 Dose: 1 patch Ondansetron HCl (Ondansetron 2 Mg/Ml Sdv 2 Ml) 4 mg IVP Q6H PRN PRN Reason: NAUSEA AND VOMITING Last Admin: 08/11/24 23:33 Dose: 4 mg Pantoprazole Sodium (Pantoprazole 40 Mg Sdv) 40 mg IVP DAILY [facility] Last Admin: 08/13/24 09:12 Dose: 40 mg Thiamine HCl (Thiamine 100 Mg/Ml 2ml Sdv) 100 mg IVP DAILY [facility] Last Admin: 08/13/24 09:15 Dose: 100 mg Vitals/I&O/Wt Last Vital Signs Temp 99.2 F 08/13/24 08:40 Pulse 96 08/13/24 08:40 Resp 20 H 08/13/24 08:40 BP 116/80 08/13/24 08:40 Pulse Ox 95 08/13/24 08:40 O2 Del Method Room Air 08/11/24 15:25 08/12/24 08/13/24 08/13/24 22:59 06:59 14:59 Intake Total 1350 / 4939.9459 1050 / 5989.9459 620 / 620 Output Total 500 / 500 Balance 850 / 4439.9459 1050 / 5489.9459 620 / 620 Weight last 48 hrs Weight 49.895 kg Weight 49.895 kg Weight 49.895 kg Weight 49.895 kg Weight 58.967 kg Physical Exam 2 Narrative: sitting up, comfortable. no resp distress VS noted Heent- nc/at, eomi, anicteric neck supple lungs clear heart -rrr, + s1, s2 abd soft, +bs ext no edema neuro- a,a, o x 3 Data 08/12/24 10:32 08/13/24 06:15 Micro: Microbiology 08/12/24 18:03 Blood Culture - Preliminary Blood SPECIMEN COLLECTED 08/12/24 17:52 Blood Culture - Preliminary Blood SPECIMEN COLLECTED 08/11/24 14:28 Blood Culture - Preliminary Blood Staphylococcus epidermidis 08/11/24 14:36 Blood Culture - Preliminary Blood NEGATIVE TO DATE A&P Assessment and plan (1) Ketoacidosis: 33 year old female ETOH use, malnutrition, and depression. Pt drank sugnificant vodka on Saturday while watching the superbowl, last night she developed n/v/d. she now presents with: 1. inc AGMA of 46 with + ketoness- likely starvation ketoacidosis -please check serum osmolality- her calculated osmolality is 268 -anion gap has improved to 17 - dec rate ivf LR -would avoid NS as it can cause a hyperchloremic metabolic acidosis -repeat abg yesterday 7.- improving -she is having refeeding syndrome. as she is malnourished- please continue MVI, FOLATE, THIAMINE. REPLCAE MAGNESIUM, POTASSIUM, AND PHOSPHORUS PLEASE CHECK CHEM 7 MG PHOS EVERY 6 HOURS 2. ISAURA- send urine electrolytes- likely prerneal vs ATN u/a w/ 1+ blood, 4+ protein, SG 1017 renal fxn improved w/ ivf however she still has albuminuria 3. hyponatremia- improved. from ISAURA vs beed drinkers hyponatremia 4. albumin of 5.5- she was likely hemoconcentrated from volume depletion -repeat albumin now 3.1 replace vit d tsh 0.22- assess for hyperthyroidism or if she is taking levothyroxine staph epidermidis bacteremia- likely a contaminant- consider stopping abx seen and examined w/ aid of a RN using A/V equipment pt consents to telemed visit and treatment Plan ivf, replace electrolytes -see above PDMP PDMP Reviewed: Not Reviewed Attestations 2 Medical Necessity Statement*: improving high AGMA. she has severe electrolyte abnormalities that need correction and close monitoring Time Spent in Patient Care: Greater than 35 minutes (>than 50% of time spent in counselling and/or direct pt care on unit) . Coding Level of Care Code Acute Code for Chg Fwd Diagnoses Ketoacidosis E87.29
[2024-08-13 11:41] LABS: Basophils % 0.5 %; Eosinophils % 0.5 %; Lymphocytes % 23.7 %; Mean Corpuscular HGB Conc 32.5 g/dL (30-55); Mean Corpuscular Hemoglobin 33.3 pg (27-33); Mean Corpuscular Volume 102.5 fl (85-98); Mean Platelet Volume 9.7 fL (7.4-10.4); Monocytes # 0.4 10^3/uL (0.2-0.9); Monocytes % 8.5 %; Neutrophils # 2.73 10^3/uL (1.8-7.7); Neutrophils % 66.6 %; Nucleated Red Blood Cells % 0 %; Platelet Count 106 10^3/cmm (157-399); Red Blood Count 2.04 10^6/uL (3.85-5.65); Red Cell Distribution Width 14.6 % (12.1-15.1)
[2024-08-13 11:49] LABS: Hematocrit 20.9 % (36-47)
[2024-08-13 11:59] LABS: Alanine Aminotransferase 14 U/L (0-33); Albumin Level 2.8 g/dL (3.5-5.2); Alkaline Phosphatase 70 U/L (35-105); Aspartate Amino Transferase 47 U/L (0-32); Blood Urea Nitrogen 3 mg/dL (6-20); Calcium 7.9 mg/dL (8.5-10.5); Carbon Dioxide 17 mmol/L (22-29); Chloride 98 mmol/L (98-107); Creatinine Clr Calc Pharmacy 195.2674; Globulin 2.2 g/dL (1.3-4.6); Glomerular Filtration Rate 253.2 mL/min (90-130); Glucose 88 mg/dL (65-115); Magnesium 1.4 mg/dL (1.7-2.3); Osmolality Calculated 272 mOsm/kg (285-295); Sodium 133 mmol/L (136-145); Total Bilirubin 0.3 mg/dL (0.15-1.2)
[2024-08-13] MEDS: lactated ringers 500 ML 100 ML IV ×3 (11:59→23:45)
[2024-08-13 12:08] LABS: Anion Gap 21.3 (5-19); Potassium 3.3 mmol/L (3.5-5.1)
[2024-08-13] MEDS: magnesium sulfate premix 4 GM/100 ML PREMIX IV (12:45)
--- NOTE | 2024-08-13 13:04 | P.CONIM_ITS ---
Providers/Reason For Consult 2 Consulting Physician/Specialty*: Dr. Garcia general surgery Reason for Consult*: Alcohol GI bleed Attending Physician: Tracy Dupree MD Primary Care Provider: Briseida Sánchez History of Present Illness History of Present Illness Lou Marks is a 33 year old female history of alcohol abuse. General surgery got consulted for drop in hemoglobin. Concern for GI bleed. No hematochezia, no melena. Medications/Allergies Home Medications ?Medication ?Instructions ?Recorded ?Confirmed ?Last Taken ?Type No Known Home Medications 08/11/2408/01 Unknown History Allergies Allergy/AdvReac Type Severity Reaction Status Date / Time haloperidol (From Haldol) AdvReac Mild swallowed Verified 03/22/24 14:30 tongue and couldn't move legs Current Medications Generic Name Dose Route Start Last Admin Trade Name Freq PRN Reason Stop Dose Admin Calcium Carbonate 600 mg 08/12/24 09:00 08/13/24 09:10 Calcium Carbonate 600 Mg Tablet PO 600 mg TID [facility] Administration Folic Acid 1 mg 08/12/24 09:00 08/13/24 09:15 Folic Acid 5 Mg/Ml Mdv 10ml IVP 1 mg DAILY [facility] Administration Heparin Sodium (Porcine) 5,000 unit 08/11/24 14:15 08/13/24 03:30 Heparin 5,000 Unit/Ml Inj 1 Ml SUBCUT 5,000 unit Q12H [facility] Administration Piperacillin Sod/Tazobactam 50 mls @ 12.5 mls/hr 08/11/24 16:00 08/13/24 07:50 Sod 3.375 gm/ Sodium Chloride IV 12.5 mls/hr Q8H [facility] Administration Protocol Lactated Ringer's 500 mls @ 100 mls/hr 08/12/24 08:15 08/13/24 11:59 Lactated Ringers IV 100 mls/hr .Q5H [facility] Administration Vancomycin HCl 1,000 mg/ 250 mls @ 250 mls/hr 08/13/24 03:00 08/13/24 03:30 Sodium Chloride IV 250 mls/hr Q12H [facility] Administration Potassium Phosphate 40 meq/ 109.0909 mls @ 27.273 mls/hr 08/13/24 08:00 08/13/24 11:31 Sodium Chloride IV 08/13/24 15:59 27.27 mls/hr Q4H [facility] Administration Magnesium Sulfate 4 gm in 100 mls @ 50 mls/hr 08/13/24 13:00 08/13/24 12:45 Magnesium Sulfate Premix IV 08/13/24 14:59 50 mls/hr ONCE ONE Administration Morphine Sulfate 2 mg 08/11/24 16:21 08/12/24 09:22 Morphine 4 Mg/Ml Sdv 1 Ml IVP 2 mg Q4H PRN Administration SEVERE PAIN Nicotine 1 patch 08/11/24 21:15 08/12/24 20:58 Nicotine 21 Mg Patch TRANSDERMA 1 patch Q24H [facility] Administration Ondansetron HCl 4 mg 08/11/24 14:02 08/11/24 23:33 Ondansetron 2 Mg/Ml Sdv 2 Ml IVP 4 mg Q6H PRN Administration NAUSEA AND VOMITING Pantoprazole Sodium 40 mg 08/13/24 12:00 08/13/24 12:33 Pantoprazole 40 Mg Sdv IVP 40 mg Q12H [facility] Administration Thiamine HCl 100 mg 08/12/24 09:00 08/13/24 09:15 Thiamine 100 Mg/Ml 2ml Sdv IVP 100 mg DAILY [facility] Administration PFSH Acute 2 PFSH: Medical History (Updated 08/13/24 @ 12:01 by Tracy Dupree MD) Nausea & vomiting Alcoholic peripheral neuropathy Sinus tachycardia Hypokalemia 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 Abdominal pain Elevated LFTs Nicotine dependence, cigarettes, with unspecified nicotine-induced disorders PTSD (post-traumatic stress disorder) Depression Surgical History No pertinent past surgical history Family History Other Hypertension Seizure Social History Smoking and tobacco/nicotine status: current every day tobacco/nicotine user cigarettes Packs smoked per day: 1 Alcohol intake: current Alcohol intake frequency: 3 or more drinks per day Alcohol type: beer Substance/Drug Use: current Substance/Drug use frequency: daily Vitals/I&O/Wt Last Vital Signs Temp 99.2 F 08/13/24 08:40 Pulse 80 08/13/24 11:30 Resp 20 H 08/13/24 11:30 BP 124/92 08/13/24 11:30 Pulse Ox 100 08/13/24 11:30 O2 Del Method Room Air 08/11/24 15:25 08/12/24 08/13/24 08/13/24 22:59 06:59 14:59 Intake Total 1350 / 4939.9459 1050 / 5989.9459 1226.353 / 1226.353 Output Total 500 / 500 Balance 850 / 4439.9459 1050 / 5489.9459 1226.353 / 1226.353 Weight last 48 hrs Weight 110 lb Weight 110 lb Weight 110 lb Weight 110 lb Physical Exam 2 Narrative: Chest: Unlabored breathing room air. No lymphadenopathy. Heart: Regular rate and rhythm. Abdomen: Soft, nontender, nondistended. No masses or lymphadenopathy. Data 08/13/24 11:29 08/13/24 11:29 Micro: Microbiology 08/12/24 18:03 Blood Culture - Preliminary Blood SPECIMEN COLLECTED 08/12/24 17:52 Blood Culture - Preliminary Blood SPECIMEN COLLECTED 08/11/24 14:28 Blood Culture - Preliminary Blood Staphylococcus epidermidis 08/11/24 14:36 Blood Culture - Preliminary Blood NEGATIVE TO DATE A&P Assessment and plan (1) GI bleed: Plan 33-year-old female whom general surgery was consulted for occult GI bleed. EGD and colonoscopy tomorrow. Prep ordered. N.p.o. after midnight. PDMP PDMP Reviewed: Not Reviewed Coding Level of Care Code 21521 Diagnoses GI bleed K92.2 Time Spent (min) 30
[2024-08-13 13:44] LABS: Ferritin 316 ng/mL (15-150); Iron 60 ug/dL (37-145); Percent Saturation 36.8 % (20-50); Total Iron Binding Capacity 163 mcg/dl; Unsaturated Iron Binding 103 ug/dL (112-347)
[2024-08-13] MEDS: magnesium citrate Btl 296 mL PO ×2 (14:59→20:44)
[2024-08-13] MEDS: bisacodyl 5 mg Tablet 40 MG PO ×2 (15:01→20:44)
--- NOTE | 2024-08-13 15:24 | PC.NURSE ---
1500 Started bowel prep meds, patient gagging, coughing to increase vitals. Keeps stating how much she hates taking meds
[2024-08-13] MEDS: nicotine 4 mg lozenge MUCOUS MEM (18:18)
[2024-08-13 18:28] LABS: Basophils % 0.6 %; Eosinophils % 0.4 %; Lymphocytes # 1.1 10^3/uL (0.8-4.8); Lymphocytes % 20.4 %; Mean Corpuscular HGB Conc 33.3 g/dL (30-55); Mean Corpuscular Hemoglobin 31.9 pg (27-33); Mean Corpuscular Volume 95.7 fl (85-98); Mean Platelet Volume 10.2 fL (7.4-10.4); Monocytes # 0.5 10^3/uL (0.2-0.9); Monocytes % 8.8 %; Neutrophils # 3.66 10^3/uL (1.8-7.7); Neutrophils % 69.6 %; Nucleated Red Blood Cells % 0 %; Platelet Count 110 10^3/cmm (157-399); Red Blood Count 2.82 10^6/uL (3.85-5.65); Red Cell Distribution Width 15.7 % (12.1-15.1); White Blood Count 5.25 10^3/uL (3.29-11.43)
[2024-08-13 20:35] LABS: Alanine Aminotransferase 22 U/L (0-33); Albumin Level 3.4 g/dL (3.5-5.2); Alkaline Phosphatase 80 U/L (35-105); Blood Urea Nitrogen 3 mg/dL (6-20); Calcium 8.6 mg/dL (8.5-10.5); Carbon Dioxide 23 mmol/L (22-29); Chloride 103 mmol/L (98-107); Creatinine Clr Calc Pharmacy 195.2674; Globulin 2.6 g/dL (1.3-4.6); Glomerular Filtration Rate 253.2 mL/min (90-130); Glucose 121 mg/dL (65-115); Magnesium 2.7 mg/dL (1.7-2.3); Osmolality Calculated 282 mOsm/kg (285-295); Phosphorus 2.5 mg/dL (2.5-4.5); Sodium 137 mmol/L (136-145); Total Bilirubin 0.6 mg/dL (0.15-1.2)
[2024-08-13 20:39] LABS: Anion Gap 14.4 (5-19); Aspartate Amino Transferase 49 U/L (0-32); Potassium 3.4 mmol/L (3.5-5.1)
[2024-08-13] MEDS: potassium chloride ER 20 mEq Tablet 40 MEQ PO (23:39)
[2024-08-14] VITALS (28 sets, daily range): BP systolic 104–147; BP diastolic 72–110; PULSE 62–121; RESP 16–27; TEMP 36.5–37.4; O2SAT 93–100
[2024-08-14] MEDS: VANCOMYCIN ADD-Vantage 1,000 MG in 0.9% NaCl ADD-Vantage 250 ML 250 MG IV (03:37)
[2024-08-14 04:03] LABS: Basophils % 0.6 %; Eosinophils % 0.7 %; Hematocrit 29.6 % (36-47); Lymphocytes # 1.3 10^3/uL (0.8-4.8); Lymphocytes % 24.9 %; Mean Corpuscular HGB Conc 33.8 g/dL (30-55); Mean Corpuscular Hemoglobin 32.1 pg (27-33); Mean Corpuscular Volume 94.9 fl (85-98); Mean Platelet Volume 9.8 fL (7.4-10.4); Monocytes # 0.4 10^3/uL (0.2-0.9); Neutrophils # 3.52 10^3/uL (1.8-7.7); Neutrophils % 65.4 %; Nucleated Red Blood Cells % 0 %; Platelet Count 140 10^3/cmm (157-399); Red Blood Count 3.12 10^6/uL (3.85-5.65); Red Cell Distribution Width 16.4 % (12.1-15.1); White Blood Count 5.38 10^3/uL (3.29-11.43)
[2024-08-14 04:27] LABS: Alanine Aminotransferase 21 U/L (0-33); Albumin Level 3.4 g/dL (3.5-5.2); Alkaline Phosphatase 80 U/L (35-105); Anion Gap 16.6 (5-19); Aspartate Amino Transferase 37 U/L (0-32); Blood Urea Nitrogen 2 mg/dL (6-20); Calcium 9.2 mg/dL (8.5-10.5); Carbon Dioxide 22 mmol/L (22-29); Chloride 102 mmol/L (98-107); Creatinine Clr Calc Pharmacy 146.4506; Globulin 2.8 g/dL (1.3-4.6); Glomerular Filtration Rate 181.6 mL/min (90-130); Glucose 113 mg/dL (65-115); Magnesium 2.5 mg/dL (1.7-2.3); Osmolality Calculated 283 mOsm/kg (285-295); Phosphorus 2.6 mg/dL (2.5-4.5); Sodium 138 mmol/L (136-145); Total Bilirubin 0.4 mg/dL (0.15-1.2); Total Protein 6.2 g/dL (6.6-8.7)
[2024-08-14 04:48] LABS: Potassium 2.6 mmol/L (3.5-5.1)
[2024-08-14] MEDS: lidocaine 1% 5 ML in potassium chloride premix 100 ML 26.25 ML IV (05:28)
[2024-08-14] MEDS: potassium chloride ER 20 mEq Tablet 40 MEQ PO (05:30)
[2024-08-14] MEDS: lactated ringers 500 ML 100 ML IV ×2 (05:31→10:52)
[2024-08-14] MEDS: nicotine 4 mg lozenge MUCOUS MEM ×3 (07:47→20:30)
[2024-08-14] MEDS: piperacillin-tazobactam 3.375 GM in sodium chloride 0.9% (plus) 50 ML IV ×2 (07:47→15:56)
[2024-08-14] MEDS: thiamine 100 mg/mL 2mL SDV IVP (08:55)
[2024-08-14] MEDS: folic acid 5 mg/ml MDV 10mL 1 MG IVP (08:59)
--- NOTE | 2024-08-14 08:59 | P.PN_ITS ---
Documented by User: Ted Lopez 08/14/24 11:03 Subjective 2 Subjective: Patient was seen this morning. No acute overnight events. Overall she states symptoms have been improving. She reports abdominal pain due to prep for scoping. Patient is waiting for EGD and colonoscopy planned for 1299. Vitals/I&O/Wt Last Vital Signs Temp 97.8 F 08/14/24 04:00 Pulse 74 08/14/24 06:00 Resp 16 08/14/24 06:00 BP 106/76 08/14/24 06:00 Pulse Ox 100 08/14/24 06:00 O2 Del Method Room Air 08/14/24 06:00 08/13/24 08/14/24 08/14/24 22:59 06:59 14:59 Intake Total 1359.0909 / 2755.4439 1420 / 4175.4439 Output Total 300 / 300 Balance 1059.0909 / 2455.4439 1420 / 3875.4439 Weight last 48 hrs Weight 49.895 kg Weight 49.895 kg Physical Exam 2 Resp: COMMON NORMALS: normal respiratory effort and clear to auscultation bilaterally AUSCULTATION: clear to auscultation bilaterally Cardio: COMMON NORMALS: regular rate, regular rhythm, S1 normal heart sound present and S2 normal heart sound present RATE: regular rate RHYTHM: r egular rhythm HEART SOUNDS: S1 normal heart sound present and S2 normal heart sound present GI: COMMON NORMALS: Normal to inspection, nondistended, normoactive bowel sounds present and non-tender Data 08/14/24 09:57 08/14/24 09:57 Micro: Microbiology 08/12/24 18:03 Blood Culture - Preliminary Blood NEGATIVE TO DATE 08/12/24 17:52 Blood Culture - Preliminary Blood NEGATIVE TO DATE 08/13/24 14:20 Occult Blood (FIT) - Final Stool A&P Assessment and plan (1) Transaminitis: (2) GI bleed: (3) Acute hypokalemia: (4) Ketoacidosis: (5) High anion gap metabolic acidosis: (6) Alcoholic ketoacidosis: (7) Hypophosphatemia: (8) Acute anemia: (9) Diarrhea: (10) Acute kidney injury: Plan #Alcoholic ketoacidosis #Severe high anion gap metabolic acidosis most likely secondary to alcohol abuse #Acute kidney injury secondary to prerenal cause #Nausea vomiting diarrhea #Mildly elevated liver enzymes most likely secondary to alcohol use #Severely hemoconcentrated #Alcohol peripheral neuropathy #Not on any medications at home ? Patient presented with nausea vomiting diarrhea severe dehydration most likely secondary to alcohol binge drinking episode on the day absorbable. She is severely dehydrated at this time all labs are hemoconcentrated. She is tachypneic tachycardic and has severe anion gap metabolic acidosis. Denies drinking any other type of alcohol with alcohol mental alcohol at this time. She states she drank vodka. Patient denies being on any medications at home therefore euglycemic DKA unlikely. She does not have a history of diabetes ? Check serum osmolality to check for osmolar gap although unlikely high secondary to drinking vodka. ? Placed on bicarb drip with D5, ordered thiamine 100 IV push x 1 now ? Ordered thiamine 500 IV x 1 ? Placed on folic acid thiamine daily ? Placed on LR at 125 cc/h ? Check BMP, phosphorus, magnesium every 4 hours ? Patient at risk of refeeding syndrome and severe electrolyte imbalance ? At this time continue to hydrate patient and watch for electrolyte abnormalities and replete as needed ? Empirically placed on vancomycin and Zosyn ? Check CT chest abdomen pelvis to rule out other etiology however unlikely at this time ? Will check VBG in 4 hours ? At this time there is no acute indication for dialysis ? Consult nephrology. Appreciate recommendations ? Check CBC CMP mag phosphorus in a.m. ? Check c.diff, stool culture, ova parasite screen ? Check hemoglobin A1c ? Patient is not to be given any insulin at this time. 08/12/2024 - Continue folic acid and thiamine. - Continue LR and calcium carbonate. - Continue on Zosyn. Discontinued Vancomycin. - Serum osmolality pending. - Check BMP, phosphorus, magnesium every 4 hours - Chest X-ray showed stable chest without acute abnormality. - CT chest revealed multiple ground-glass opacities in the posterolateral lung bases which could reflect atelectasis or small airway infectious/inflammatory process including viral pneumonias. - CT Ab/Pelvis showed evidence of 1) Distended fluid-filled stomach, may indicate gastritis. 2) Cholelithiasis - EKG - sinus tachycardia - Blood culture pending - Drug screen pending - Patient is not to be given any insulin at this time. - Nephrology following. 08/13/2024 - Continue folic acid and thiamine. - Continue LR and calcium carbonate. - Continue on Zosyn. Start Vancomycin for bacteremia. - Monitor and replace electrolytes. Potassium 2.6 this morning from 3.5 yesterday (08/12) - TSH checked. 0.22 - Blood culture pending. - Drug screen positive marijuana. Ethlene glycol pending. - Patient is not to be given any insulin at this time. - Nephrology following. 08/14/2024 - Continue MVI, folate, thiamine. - Continue Zosyn and Vancomycin. - Decrease rate LR, per nephrology - Serum osmolality pending. - Drug screen positive marijuana. Ethlene glycol pending. - Patient is not to be given any insulin at this time. - Drop in hemoglobin. Surgery consulted. - Plan for EGD and colonoscopy today around 1300. - Refeeding syndrome. Monitor potassium, magnesium and phosphorus. Replace electrolytes. - Replace vitamin d. - Nephrology following. PDMP PDMP Reviewed: Not Reviewed Coding Level of Care Code 29358 Diagnoses Transaminitis R74.01 GI bleed K92.2 Acute hypokalemia E87.6 Ketoacidosis E87.29 High anion gap metabolic acidosis E87.29 Alcoholic ketoacidosis E87.29 Hypophosphatemia E83.39 Acute anemia D64.9 Diarrhea R19.7 Acute kidney injury N17.9 Documented by User: Tracy Dupree MD 08/14/24 14:34 Physical Exam 2 Const: COMMON NORMALS: no acute distress and patient oriented x3 Neuro: COMMON NORMALS: patient oriented x3 Data 08/14/24 09:57 08/14/24 09:57 A&P Assessment and plan (1) Transaminitis: (2) GI bleed: (3) Acute hypokalemia: (4) Ketoacidosis: (5) High anion gap metabolic acidosis: (6) Alcoholic ketoacidosis: (7) Hypophosphatemia: (8) Acute anemia: (9) Diarrhea: (10) Acute kidney injury: Plan #Alcoholic ketoacidosis #Severe high anion gap metabolic acidosis most likely secondary to alcohol abuse #Acute kidney injury secondary to prerenal cause #Nausea vomiting diarrhea #Mildly elevated liver enzymes most likely secondary to alcohol use #Severely hemoconcentrated #Alcohol peripheral neuropathy #Not on any medications at home ? Patient presented with nausea vomiting diarrhea severe dehydration most likely secondary to alcohol binge drinking episode on the day absorbable. She is severely dehydrated at this time all labs are hemoconcentrated. She is tachypneic tachycardic and has severe anion gap metabolic acidosis. Denies drinking any other type of alcohol with alcohol mental alcohol at this time. She states she drank vodka. Patient denies being on any medications at home therefore euglycemic DKA unlikely. She does not have a history of diabetes ? Check serum osmolality to check for osmolar gap although unlikely high secondary to drinking vodka. ? Placed on bicarb drip with D5, ordered thiamine 100 IV push x 1 now ? Ordered thiamine 500 IV x 1 ? Placed on folic acid thiamine daily ? Placed on LR at 125 cc/h ? Check BMP, phosphorus, magnesium every 4 hours ? Patient at risk of refeeding syndrome and severe electrolyte imbalance ? At this time continue to hydrate patient and watch for electrolyte abnormalities and replete as needed ? Empirically placed on vancomycin and Zosyn ? Check CT chest abdomen pelvis to rule out other etiology however unlikely at this time ? Will check VBG in 4 hours ? At this time there is no acute indication for dialysis ? Consult nephrology. Appreciate recommendations ? Check CBC CMP mag phosphorus in a.m. ? Check c.diff, stool culture, ova parasite screen ? Check hemoglobin A1c ? Patient is not to be given any insulin at this time. 08/12/2024 - Continue folic acid and thiamine. - Continue LR and calcium carbonate. - Continue on Zosyn. Discontinued Vancomycin. - Serum osmolality pending. - Check BMP, phosphorus, magnesium every 4 hours - Chest X-ray showed stable chest without acute abnormality. - CT chest revealed multiple ground-glass opacities in the posterolateral lung bases which could reflect atelectasis or small airway infectious/inflammatory process including viral pneumonias. - CT Ab/Pelvis showed evidence of 1) Distended fluid-filled stomach, may indicate gastritis. 2) Cholelithiasis - EKG - sinus tachycardia - Blood culture pending - Drug screen pending - Patient is not to be given any insulin at this time. - Nephrology following. 08/13/2024 - Continue folic acid and thiamine. - Continue LR and calcium carbonate. - Continue on Zosyn. Start Vancomycin for bacteremia. - Monitor and replace electrolytes. Potassium 2.6 this morning from 3.5 yesterday (08/12) - TSH checked. 0.22 - Blood culture pending. - Drug screen positive marijuana. Ethlene glycol pending. - Patient is not to be given any insulin at this time. - Nephrology following. 08/14/2024 - Continue MVI, folate, thiamine. - Continue Zosyn. Will stop 08/15 to complete 5 days total. ?Blood cultures are negative to date. I will stop vancomycin at this time. Staph epidermidis on initial admission blood culture most likely thought to be a contaminant at this point. ? EGD colonoscopy planned today. ?Patient did receive 1 unit packed RBC yesterday for hemoglobin of 6.8. Repeat hemoglobin 9.0. It has been stable around 9.4 range since then. ? FOBT negative. ? No clear etiology of bleed or anemia at this time. 6.80 possibly lab error?. Patient's baseline 10/11 range?. Difficult to tell from previous trend of labs. Will continue to monitor hemoglobin at this time - Refeeding syndrome. Monitor potassium, magnesium and phosphorus. Replace electrolytes. - Replace vitamin d. - Nephrology following. ? I will stop IV fluids today. Anion gap is normalized. Patient is feeling better and tolerating GI soft diet at this point. -She did complain of mild shortness of breath after EGD colonoscopy today. When seen patient at bedside. Chest x-ray also reviewed. She states she has a history of asthma and uses an inhaler at home intermittently. I have ordered Acapella and incentive spirometer. Will order one-time DuoNeb. Lungs are clear to auscultation. Possibly atelectasis?. We will continue to monitor. Patient may transfer to floor at this time. Will transfer to [facility]. PDMP PDMP Reviewed: Not Reviewed Attestations 2 Medical Necessity Statement*: Potential discharge home in a.m. Diagnoses Transaminitis R74.01 GI bleed K92.2 Acute hypokalemia E87.6 Ketoacidosis E87.29 High anion gap metabolic acidosis E87.29 Alcoholic ketoacidosis E87.29 Hypophosphatemia E83.39 Acute anemia D64.9 Diarrhea R19.7 Acute kidney injury N17.9
[2024-08-14 10:16] LABS: Basophils % 0.5 %; Eosinophils # 0.1 10^3/uL (0.0-0.8); Eosinophils % 0.8 %; Hematocrit 28.4 % (36-47); Lymphocytes # 1.4 10^3/uL (0.8-4.8); Lymphocytes % 23.5 %; Mean Corpuscular HGB Conc 33.1 g/dL (30-55); Mean Corpuscular Hemoglobin 31.6 pg (27-33); Mean Corpuscular Volume 95.6 fl (85-98); Mean Platelet Volume 9.7 fL (7.4-10.4); Monocytes # 0.5 10^3/uL (0.2-0.9); Monocytes % 8.5 %; Neutrophils # 4.06 10^3/uL (1.8-7.7); Neutrophils % 66.4 %; Nucleated Red Blood Cells % 0 %; Platelet Count 142 10^3/cmm (157-399); Red Blood Count 2.97 10^6/uL (3.85-5.65); Red Cell Distribution Width 16.8 % (12.1-15.1); White Blood Count 6.12 10^3/uL (3.29-11.43)
[2024-08-14 10:39] LABS: Potassium 3.6 mmol/L (3.5-5.1)
--- NOTE | 2024-08-14 10:45 | ANES.PREANE2 ---
Pre-Anesthetic Assessment Height/Weight: Height 5 ft Weight 110 lb Temp Pulse Resp BP Pulse Ox O2 Del Method 98.3 F 98 23 H 133/98 93 Room Air 08/14/24 08:00 08/14/24 09:00 08/14/24 09:00 08/14/24 09:00 08/14/24 09:00 08/14/24 09:00 Preop Diagnosis: Concern for GI bleed Operation Date: 08/14/24 13:00 Proposed Procedures p EGD(Not Applicable) - Claude Garcia MD s Colonoscopy(Not Applicable) - Claude Garcia MD Was Beta Yvonne taken within 24 hours: N/A Was Clonidine taken within 24 hours: N/A Social Alcohol and Tobacco Exam alert, oriented x 3, clear to auscultation bilaterally and regular rate & rhythm Airway Submandibular: within normal limits Cervical ROM: within normal limits Mallampati: Class II Comments: Comments: edentulous Anesthetic Plan ASA status: 3 Anesthesia: Choice Other: Patient initially admitted 08/11/2024 with alcoholic ketoacidosis. Severe high anion gap at admission No prior issues with anesthesia Patient has an acute kidney injury Alcohol peripheral neuropathy noted Patient reportedly drinks hard vodka twice a month Anion gap has improved to 16.6. Per nephrology they felt patient was experiencing refeeding syndrome yesterday and needed electrolytes replaced. Labs reviewed from today 08/14/2024. Hemoglobin 9.4. Electrolytes have improved, K+ 3.6, NA 138. Creatinine 0.4 EKG showing sinus tachycardia Plan for MAC anesthetic with possible conversion to general anesthesia if we see esophageal varices Medications/Allergies Home Medications ?Medication ?Instructions ?Recorded ?Confirmed ?Last Taken ?Type No Known Home Medications 08/11/24 08/11/24 Unknown History Allergies Allergy/AdvReac Type Severity Reaction Status Date / Time haloperidol (From Haldol) AdvReac Mild swallowed Verified 03/22/24 14:30 tongue and couldn't move legs Current Medications Generic Name Dose Route Start Last Admin Trade Name Freq PRN Reason Stop Dose Admin Calcium Carbonate 600 mg 08/12/24 09:00 08/14/24 09:02 Calcium Carbonate 600 Mg Tablet PO Not Given TID LIVAN Folic Acid 1 mg 08/12/24 09:00 08/14/24 08:59 Folic Acid 5 Mg/Ml Mdv 10ml IVP 1 mg DAILY LIVAN Administration Heparin Sodium (Porcine) 5,000 unit 08/11/24 14:15 08/13/24 03:30 Heparin 5,000 Unit/Ml Inj 1 Ml SUBCUT 5,000 unit Q12H [facility] Administration Piperacillin Sod/Tazobactam 50 mls @ 12.5 mls/hr 08/11/24 16:00 08/14/24 07:47 Sod 3.375 gm/ Sodium Chloride IV 12.5 mls/hr Q8H [facility] Administration Protocol Lactated Ringer's 500 mls @ 100 mls/hr 08/12/24 08:15 08/14/24 08:01 Lactated Ringers IV Not Given .Q5H LIVAN Vancomycin HCl 1,000 mg/ 250 mls @ 250 mls/hr 08/13/24 03:00 08/14/24 04:46 Sodium Chloride IV Infused Q12H [facility] Infusion Morphine Sulfate 2 mg 08/11/24 16:21 08/12/24 09:22 Morphine 4 Mg/Ml Sdv 1 Ml IVP 2 mg Q4H PRN Administration SEVERE PAIN Nicotine 1 patch 08/11/24 21:15 08/13/24 20:50 Nicotine 21 Mg Patch TRANSDERMA Not Given Q24H [facility] Nicotine Polacrilex 4 mg 08/13/24 18:02 08/14/24 07:47 Nicotine 4 Mg Lozenge MUCOUS MEM 4 mg Q4H PRN Administration NICOTINE CRAVINGS Ondansetron HCl 4 mg 08/11/24 14:02 08/11/24 23:33 Ondansetron 2 Mg/Ml Sdv 2 Ml IVP 4 mg Q6H PRN Administration NAUSEA AND VOMITING Pantoprazole Sodium 40 mg 08/13/24 12:00 08/13/24 23:43 Pantoprazole 40 Mg Sdv IVP 40 mg Q12H [facility] Administration Thiamine HCl 100 mg 08/12/24 09:00 08/14/24 08:55 Thiamine 100 Mg/Ml 2ml Sdv IVP 100 mg DAILY [facility] Administration Additional Medication Information Current Medications Calcium Carbonate (Calcium Carbonate 600 Mg Tablet) 600 mg PO TID [facility] Last Admin: 08/13/24 09:10 Dose: 600 mg Folic Acid (Folic Acid 5 Mg/Ml Mdv 10ml) 1 mg IVP DAILY [facility] Last Admin: 08/13/24 09:15 Dose: 1 mg Heparin Sodium (Porcine) (Heparin 5,000 Unit/Ml Inj 1 Ml) 5,000 unit SUBCUT Q12H [facility] Last Admin: 08/13/24 03:30 Dose: 5,000 unit Piperacillin Sod/Tazobactam (Sod 3.375 gm/ Sodium Chloride) 50 mls @ 12.5 mls/hr IV Q8H [facility]; Protocol Last Admin: 08/13/24 07:50 Dose: 12.5 mls/hr Lactated Ringer's (Lactated Ringers) 500 mls @ 150 mls/hr IV .Q3H20M [facility] Last Admin: 08/13/24 07:56 Dose: 150 mls/hr Vancomycin HCl 1,000 mg/ (Sodium Chloride) 250 mls @ 250 mls/hr IV Q12H [facility] Last Admin: 08/13/24 03:30 Dose: 250 mls/hr Potassium Phosphate 40 meq/ (Sodium Chloride) 109.0909 mls @ 27.273 mls/hr IV Q4H [facility] Stop: 08/13/24 15:59 Last Admin: 08/13/24 07:37 Dose: 27.27 mls/hr Metoclopramide HCl (Metoclopramide 5 Mg/Ml Sdv 2 Ml) 10 mg IVP Q6H PRN PRN Reason: NAUSEA AND VOMITING Morphine Sulfate (Morphine 4 Mg/Ml Sdv 1 Ml) 2 mg IVP Q4H PRN PRN Reason: SEVERE PAIN Last Admin: 08/12/24 09:22 Dose: 2 mg Nicotine (Nicotine 21 Mg Patch) 1 patch TRANSDERMA Q24H [facility] Last Admin: 08/12/24 20:58 Dose: 1 patch Ondansetron HCl (Ondansetron 2 Mg/Ml Sdv 2 Ml) 4 mg IVP Q6H PRN PRN Reason: NAUSEA AND VOMITING Last Admin: 08/11/24 23:33 Dose: 4 mg Pantoprazole Sodium (Pantoprazole 40 Mg Sdv) 40 mg IVP DAILY [facility] Last Admin: 08/13/24 09:12 Dose: 40 mg Thiamine HCl (Thiamine 100 Mg/Ml 2ml Sdv) 100 mg IVP DAILY [facility] Last Admin: 08/13/24 09:15 Dose: 100 mg PFSH Anesthesia Medical History (Updated 08/13/24 @ 12:01 by Tracy Dupree MD) Nausea & vomiting Alcoholic peripheral neuropathy Sinus tachycardia Hypokalemia 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 Abdominal pain Elevated LFTs Nicotine dependence, cigarettes, with unspecified nicotine-induced disorders PTSD (post-traumatic stress disorder) Depression Surgical History No pertinent past surgical history Family History Other Hypertension Seizure Social History Smoking and tobacco/nicotine status: current every day tobacco/nicotine user cigarettes Packs smoked per day: 1 Alcohol intake: current Alcohol intake frequency: 3 or more drinks per day Alcohol type: beer Substance/Drug Use: current Substance/Drug use frequency: daily Data Anesthesia 08/14/24 09:57 08/14/24 09:57 Short CBC 08/12/24 08/13/24 08/13/24 Range/Units 10:32 11:29 18:10 WBC 5.37 4.10 5.25 (3.29-11.43) 10^3/uL Hgb 8.50 L D 6.80 L 9.00 L D (11.27-16.99) g/dL Hct 25.8 L D 20.9 L 27.0 L (36-47) % MCV 99.2 H D 102.5 H 95.7 D (85-98) fl Plt Count 128 L D 106 L 110 L (157-399) 10^3/cmm Neut % (Auto) 75.3 66.6 69.6 % Neut # (Auto) 4.05 2.73 3.66 (1.8-7.7) 10^3/uL 08/14/24 08/14/24 Range/Units 03:18 09:57 WBC 5.38 6.12 (3.29-11.43) 10^3/uL Hgb 10.00 L 9.40 L (11.27-16.99) g/dL Hct 29.6 L 28.4 L (36-47) % MCV 94.9 95.6 (85-98) fl Plt Count 140 L 142 L (157-399) 10^3/cmm Neut % (Auto) 65.4 66.4 % Neut # (Auto) 3.52 4.06 (1.8-7.7) 10^3/uL BMP 08/11/24 08/12/24 08/12/24 12:33 10:32 11:17 Sodium 134 L 132 L Potassium 3.9 4.2 Chloride 101 97 L Carbon Dioxide 16 L 16 L BUN 7 6 Creatinine 44.0 0.6 0.6 Glucose 95 99 Calcium 7.0 L 7.1 L 08/12/24 08/13/24 08/13/24 17:52 00:25 06:15 Sodium 133 L 136 136 Potassium 3.5 3.3 L 2.6 L* D Chloride 98 103 100 Carbon Dioxide 14 L 19 L 19 L BUN 5 L 4 L 3 L Creatinine 0.5 0.5 0.5 Glucose 137 H 94 106 Calcium 7.8 L 8.5 8.1 L 08/13/24 08/13/24 08/13/24 11:29 18:10 19:52 Sodium 133 L Cancelled 137 Potassium 3.3 L Cancelled 3.4 L Chloride 98 Cancelled 103 Carbon Dioxide 17 L Cancelled 23 BUN 3 L Cancelled 3 L Creatinine 0.3 L Cancelled 0.3 L Glucose 88 Cancelled 121 H Calcium 7.9 L Cancelled 8.6 08/14/24 08/14/24 08/14/24 00:32 03:18 09:57 Sodium Cancelled 138 Potassium Cancelled 2.6 L* D 3.6 Chloride Cancelled 102 Carbon Dioxide Cancelled 22 BUN Cancelled 2 L Creatinine Cancelled 0.4 L Glucose Cancelled 113 Calcium Cancelled 9.2 Cardiac Enzymes 08/12/24 Range/Units 10:32 Creatine Kinase 90 (26-192) U/L Liver Function 08/12/24 08/12/24 08/13/24 Range/Units 11:17 17:52 00:25 Total Bilirubin 0.3 0.4 0.3 (0.15-1.2) mg/dL AST 22 25 27 (0-32) U/L ALT 11 11 13 (0-33) U/L Alkaline Phosphatase 80 80 77 (35-105) U/L Albumin 3.3 L 3.2 L 3.3 L (3.5-5.2) g/dL 08/13/24 08/13/24 08/13/24 Range/Units 06:15 11:29 18:10 Total Bilirubin 0.3 0.3 Cancelled (0.15-1.2) mg/dL AST 34 H 47 H Cancelled (0-32) U/L ALT 14 14 Cancelled (0-33) U/L Alkaline Phosphatase 70 70 Cancelled (35-105) U/L Albumin 3.1 L 2.8 L Cancelled (3.5-5.2) g/dL 08/13/24 08/14/24 08/14/24 Range/Units 19:52 00:32 03:18 Total Bilirubin 0.6 Cancelled 0.4 (0.15-1.2) mg/dL AST 49 H Cancelled 37 H (0-32) U/L ALT 22 Cancelled 21 (0-33) U/L Alkaline Phosphatase 80 Cancelled 80 (35-105) U/L Albumin 3.4 L Cancelled 3.4 L (3.5-5.2) g/dL Urine 08/11/24 08/12/24 Range/Units 12:33 15:44 Urine Color Yellow (Yellow) Urine Appearance Clear (CLEAR) Urine pH 5.6 6.5 (4.5-9.0) Ur Specific [place] 1.009 (1.005-1.030) Urine Protein 1+ A (Negative) Urine Glucose (UA) Negative (Normal) Urine Ketones 2+ H (Negative) Urine Nitrate Negative (Negative) Urine Bilirubin Negative (Negative) Ur Leukocyte Esterase Negative (Negative) Urine RBC 0-2 (0-2) /hpf Urine WBC 0-5 (0-5) /hpf Blood Bank 08/12/24 11:17 Blood Type O Positive Rho(D) Type Rh positive Antibody Screen Negative Microbiology 08/12/24 18:03 Blood Culture - Preliminary Blood NEGATIVE TO DATE 08/12/24 17:52 Blood Culture - Preliminary Blood NEGATIVE TO DATE 08/13/24 14:20 Occult Blood (FIT) - Final Stool Cardiac Studies: No Data to Display
[2024-08-14 11:43] LABS: HCG, Serum Qual Negative (Negative)
--- NOTE | 2024-08-14 12:25 | PC.NURSE ---
To GI lab via stretcher with nurse at bedside.
[2024-08-14] MEDS: sodium chloride 0.9% 500 ML 30 ML IV (12:43)
[2024-08-14] MEDS: pantoprazole 40 mg SDV IVP (13:00)
--- NOTE | 2024-08-14 13:19 | ANE.PACU2 ---
Inpatient post-anesthesia follow up: Airway intact: Yes Vital signs: Temperature 98.0 F Pulse Rate 79 Respiratory Rate 22 Blood Pressure 126/91 Pulse Oximetry 100 Oxygen Delivery Me thod Room Air Oxygen Flow Rate Fraction of Inspir ed Oxygen Hydration adequate: Yes Nausea and vomiting: No Pain level: 1 Mental status: Baseline
--- NOTE | 2024-08-14 13:21 | P.PN_ITS ---
Subjective 2 Subjective: No overt GI bleed Hemodynamically acceptable Vitals/I&O/Wt Last Vital Signs Temp 97.7 F 08/14/24 12:38 Pulse 86 08/14/24 12:38 Resp 18 08/14/24 12:38 BP 133/96 08/14/24 12:38 Pulse Ox 99 08/14/24 12:38 O2 Del Method Room Air 08/14/24 12:38 08/13/24 08/14/24 08/14/24 22:59 06:59 14:59 Intake Total 1359.0909 / 2755.4439 1420 / 4175.4439 550 / 550 Output Total 300 / 300 Balance 1059.0909 / 2455.4439 1420 / 3875.4439 550 / 550 Weight last 48 hrs Weight 110 lb Weight 110 lb Physical Exam 2 Narrative: Chest: Unlabored breathing room air. No lymphadenopathy. Heart: Regular rate and rhythm. Abdomen: Soft, nontender, nondistended. No masses or lymphadenopathy. Data 08/14/24 09:57 08/14/24 09:57 Micro: Microbiology 08/12/24 18:03 Blood Culture - Preliminary Blood NEGATIVE TO DATE 08/12/24 17:52 Blood Culture - Preliminary Blood NEGATIVE TO DATE 08/13/24 14:20 Occult Blood (FIT) - Final Stool A&P Assessment and plan (1) GI bleed: Plan 33-year-old female whom surgery was consulted for occult GI bleed. EGD and colonoscopy normal. No evidence of GI bleed. PDMP PDMP Reviewed: Not Reviewed Attestations 2 Medical Necessity Statement*: N/A Coding Level of Care Code 62115 Diagnoses GI bleed K92.2
--- NOTE | 2024-08-14 13:23 | W.PM.OPSUD ---
Surgery/Procedure H&P Update DATE OF PROCEDURE: August 14, 2024 DATE H&P PERFORMED: 08/13/24 H&P UPDATE INFORMATION: I have reviewed H&P completed within last 30 days, I have examined patient prior to procedure, No changes to prior documentation and Changes to prior documentation as noted here PREOP DIAGNOSIS: Concern for GI bleed PLANNED PROCEDURE: Operation Date: 08/14/24 13:00 Proposed Procedures p EGD(Not Applicable) - Claude Garcia MD s Colonoscopy(Not Applicable) - Claude Garcia MD
--- NOTE | 2024-08-14 13:53 | XR_ITS ---
WS: [id number] XR chest 1V [id number] REASON FOR EXAM: shortess of breath after egd and cholonoscopy FINDINGS: Right arm PICC line in place with the tip in the distal superior vena cava. The chest is unchanged compared to 08/12/2024. No acute pulmonary parenchymal or pleural abnormality is identified. No mediastinal abnormality. XR/XR chest 1V [id number] IMPRESSION: Stable chest without acute abnormality.
--- NOTE | 2024-08-14 13:59 | PC.NURSE ---
reports shortness of breath and feels like it is hard to breath. Reports using an inhaler at home but is unsure of the name of it. Lungs clear and O2 saturation 95% on room air. Dr. Dupree to bedside, patient assessed, new orders given for breathing treatment and chest x-ray. Reports will put other orders in to decrease IVF rate, IS and flutter valve at bedside.
[2024-08-14] MEDS: ipratropium-albuterol 3 mL Neb INHALATION (14:04)
[2024-08-14 14:43] LABS: Vancomycin Trough 19.9 ug/mL (10-15)
[2024-08-14 14:49] LABS: Ethylene Glycol <10.0 mg/L (***); Osmolality Serum 304 mOsm/kg (278-305)
[2024-08-14 14:58] LABS: Blood Urea Nitrogen 3 mg/dL (6-20); Calcium 8.7 mg/dL (8.5-10.5); Carbon Dioxide 18 mmol/L (22-29); Chloride 102 mmol/L (98-107); Creatinine Clr Calc Pharmacy 65.4142; Glomerular Filtration Rate 71.3 mL/min (90-130); Glucose 110 mg/dL (65-115); Osmolality Calculated 281 mOsm/kg (285-295); Phosphorus 2.4 mg/dL (2.5-4.5); Sodium 137 mmol/L (136-145)
[2024-08-14 15:02] LABS: Anion Gap 20.1 (5-19); Potassium 3.1 mmol/L (3.5-5.1)
[2024-08-14] MEDS: potassium phosphate (mEq K) 40 MEQ in sodium chloride 0.9% (100 ml) 100 ML 27.25 MEQ IV (16:57)
--- NOTE | 2024-08-14 18:11 | P.PN_ITS ---
Subjective 2 Subjective: Awaiting endoscopy plan for endoscopy-EGD and colonoscopy today Medications: Reviewed: Yes Vitals/I&O/Wt Last Vital Signs Temp 98.0 F 08/14/24 16:00 Pulse 96 08/14/24 16:00 Resp 16 08/14/24 16:00 BP 124/91 08/14/24 16:00 Pulse Ox 100 08/14/24 14:00 O2 Del Method Room Air 08/14/24 14:00 08/14/24 08/14/24 08/14/24 06:59 14:59 22:59 Intake Total 1420 / 4175.4439 550 / 550 445 / 995 Balance 1420 / 3875.4439 550 / 550 445 / 995 Weight last 48 hrs Weight 50.485 kg Weight 49.895 kg Weight 49.895 kg Physical Exam 2 Narrative: sitting up, comfortable. no resp distress VS noted Heent- nc/at, eomi, anicteric neck supple lungs clear heart -rrr, + s1, s2 abd soft, +bs ext no edema neuro- a,a, o x 3 Data 08/14/24 09:57 08/14/24 14:14 Micro: Microbiology 08/12/24 18:03 Blood Culture - Preliminary Blood NEGATIVE TO DATE 08/12/24 17:52 Blood Culture - Preliminary Blood NEGATIVE TO DATE 08/13/24 14:20 Occult Blood (FIT) - Final Stool A&P Assessment and plan (1) Ketoacidosis: 33 year old female ETOH use, malnutrition, and depression. Pt drank sugnificant vodka on Saturday while watching the superbowl, last night she developed n/v/d. she now presents with: 1.High AGMA of with + ketones - likely starvation ketoacidosis Currently improving , status post LR infusion Continue to replenish with multivitamins, folate and thiamine. replace magnesium potassium and phosphorus. 2. ISAURA- Mild ISAURA with a creatinine of 1.1, improved now with IV fluids 3. Hyponatremia- improved. Likely from ISAURA vs beed drinkers hyponatremia 4. albumin of 5.5- she was likely hemoconcentrated from volume depletion -repeat albumin now 3.1 5. TSH 0.22- assess for hyperthyroidism or if she is taking levothyroxine 6. staph epidermidis bacteremia- likely a contaminant 7. GI bleed - EGD and C scope Neg seen and examined w/ aid of a RN using A/V equipment pt consents to telemed visit and treatment PDMP PDMP Reviewed: Not Reviewed Attestations 2 Medical Necessity Statement*: per latrice Coding Level of Care Code Acute Code for Chg Fwd Diagnoses Ketoacidosis E87.29
[2024-08-14 18:15] LABS: Basophils % 0.5 %; Eosinophils % 0.3 %; Hematocrit 29.1 % (36-47); Lymphocytes # 1.1 10^3/uL (0.8-4.8); Lymphocytes % 17.1 %; Mean Corpuscular HGB Conc 33.7 g/dL (30-55); Mean Platelet Volume 9.8 fL (7.4-10.4); Monocytes # 0.6 10^3/uL (0.2-0.9); Monocytes % 8.9 %; Neutrophils # 4.84 10^3/uL (1.8-7.7); Neutrophils % 72.7 %; Nucleated Red Blood Cells % 0 %; Platelet Count 138 10^3/cmm (157-399); Red Blood Count 2.97 10^6/uL (3.85-5.65); Red Cell Distribution Width 16.7 % (12.1-15.1); White Blood Count 6.65 10^3/uL (3.29-11.43)
[2024-08-14] MEDS: nicotine 21 mg Patch 1 PATCH TRANSDERMA (20:30)
--- NOTE | 2024-08-14 21:29 | PC.NURSE ---
Unable to collect sputum, as patient states she is not coughing up any sputum.
[2024-08-15] VITALS (10 sets, daily range): BP systolic 119–129; BP diastolic 78–92; PULSE 73–97; RESP 14–18; TEMP 36.4–36.9; O2SAT 96–100
[2024-08-15] MEDS: pantoprazole 40 mg SDV IVP ×3 (00:31→23:11)
[2024-08-15] MEDS: piperacillin-tazobactam 3.375 GM in sodium chloride 0.9% (plus) 50 ML IV (00:31)
--- NOTE | 2024-08-15 00:54 | PC.NURSE ---
Report given to JAMES Voss. Patient being transferred to Med-Surg.
[2024-08-15 01:40] LABS: Anion Gap 20.2 (5-19); Blood Urea Nitrogen 5 mg/dL (6-20); Calcium 8.8 mg/dL (8.5-10.5); Carbon Dioxide 19 mmol/L (22-29); Chloride 102 mmol/L (98-107); Glomerular Filtration Rate 42.8 mL/min (90-130); Glucose 117 mg/dL (65-115); Magnesium 1.9 mg/dL (1.7-2.3); Osmolality Calculated 284 mOsm/kg (285-295); Phosphorus 5.1 mg/dL (2.5-4.5); Potassium 3.2 mmol/L (3.5-5.1); Sodium 138 mmol/L (136-145)
[2024-08-15] MEDS: nicotine 4 mg lozenge MUCOUS MEM ×5 (01:47→19:17)
[2024-08-15 06:26] LABS: Basophils % 0.5 %; Eosinophils % 0.7 %; Hematocrit 29.5 % (36-47); Lymphocytes # 1.5 10^3/uL (0.8-4.8); Lymphocytes % 25.1 %; Mean Corpuscular HGB Conc 32.9 g/dL (30-55); Mean Corpuscular Hemoglobin 31.7 pg (27-33); Mean Corpuscular Volume 96.4 fl (85-98); Mean Platelet Volume 9.4 fL (7.4-10.4); Monocytes # 0.8 10^3/uL (0.2-0.9); Monocytes % 12.9 %; Neutrophils # 3.71 10^3/uL (1.8-7.7); Neutrophils % 60.3 %; Nucleated Red Blood Cells % 0 %; Platelet Count 128 10^3/cmm (157-399); Red Blood Count 3.06 10^6/uL (3.85-5.65); Red Cell Distribution Width 16.7 % (12.1-15.1); White Blood Count 6.14 10^3/uL (3.29-11.43)
[2024-08-15 08:56] LABS: Anion Gap 18.7 (5-19); Blood Urea Nitrogen 5 mg/dL (6-20); Calcium 8.5 mg/dL (8.5-10.5); Carbon Dioxide 20 mmol/L (22-29); Chloride 103 mmol/L (98-107); Glomerular Filtration Rate 36.7 mL/min (90-130); Glucose 125 mg/dL (65-115); Magnesium 1.9 mg/dL (1.7-2.3); Osmolality Calculated 287 mOsm/kg (285-295); Phosphorus 5.7 mg/dL (2.5-4.5); Sodium 139 mmol/L (136-145)
[2024-08-15 09:03] LABS: Potassium 2.7 mmol/L (3.5-5.1)
[2024-08-15] MEDS: folic acid 5 mg/ml MDV 10mL 1 MG IVP (09:23)
[2024-08-15] MEDS: lactated ringers 1,000 ML 100 ML IV ×2 (09:23→19:42)
[2024-08-15] MEDS: thiamine 100 mg/mL 2mL SDV IVP (09:23)
[2024-08-15] MEDS: potassium chloride premix 100 ML 25 MEQ IV ×2 (11:01→15:02)
--- NOTE | 2024-08-15 14:25 | P.PN_ITS ---
Subjective 2 Subjective: No new c/o Medications: Reviewed: Yes Vitals/I&O/Wt Last Vital Signs Temp 98.3 F 08/15/24 11:57 Pulse 79 08/15/24 13:52 Resp 14 08/15/24 11:57 BP 126/87 08/15/24 11:57 Pulse Ox 97 08/15/24 11:57 O2 Del Method Room Air 08/15/24 11:57 08/14/24 08/15/24 08/15/24 22:59 06:59 14:59 Intake Total 1004.0909 / 1554.0909 50 / 1604.0909 845 / 845 Balance 1004.0909 / 1554.0909 50 / 1604.0909 845 / 845 Weight last 48 hrs Weight 52.526 kg Weight 50.485 kg Physical Exam 2 Narrative: sitting up, comfortable. no resp distress VS noted Heent- nc/at, eomi, anicteric neck supple lungs clear heart -rrr, + s1, s2 abd soft, +bs ext no edema neuro- a,a, o x 3 Data 08/15/24 06:19 08/15/24 08:31 A&P Assessment and plan (1) Ketoacidosis: 33 year old female ETOH use, malnutrition, and depression. Pt drank sugnificant vodka on Saturday while watching the superbowl, last night she developed n/v/d. she now presents with: 1.High AGMA of with + ketones - likely starvation ketoacidosis Currently improving , status post LR infusion Continue to replenish with multivitamins, folate and thiamine. replace magnesium potassium and phosphorus. 2. ISAURA- with a creatinine of 1.6, started IVFs 3. Hypokalemia : replete 4. albumin of 5.5- she was likely hemoconcentrated from volume depletion -repeat albumin now 3.1 5. TSH 0.22- assess for hyperthyroidism or if she is taking levothyroxine 6. staph epidermidis bacteremia- likely a contaminant 7. GI bleed - EGD and C scope Neg seen and examined w/ aid of a RN using A/V equipment pt consents to telemed visit and treatment PDMP PDMP Reviewed: Not Reviewed Attestations 2 Medical Necessity Statement*: per latrice Coding Level of Care Code Acute Code for Chg Fwd Diagnoses Ketoacidosis E87.29
--- NOTE | 2024-08-15 14:42 | P.PN_ITS ---
Subjective 2 Subjective: Seen this morning. Creatinine 1.6. Phosphorus high 5.5. Fluids restarted by nephrology. Antibiotics have been stopped at this time. Vitals/I&O/Wt Last Vital Signs Temp 98.3 F 08/15/24 11:57 Pulse 79 08/15/24 13:52 Resp 14 08/15/24 11:57 BP 126/87 08/15/24 11:57 Pulse Ox 97 08/15/24 11:57 O2 Del Method Room Air 08/15/24 11:57 08/14/24 08/15/24 08/15/24 22:59 06:59 14:59 Intake Total 1004.0909 / 1554.0909 50 / 1604.0909 845 / 845 Balance 1004.0909 / 1554.0909 50 / 1604.0909 845 / 845 Weight last 48 hrs Weight 52.526 kg Weight 50.485 kg Physical Exam 2 Narrative: sitting up, comfortable. no resp distress VS noted Heent- nc/at, eomi, anicteric neck supple lungs clear heart -rrr, + s1, s2 abd soft, +bs ext no edema neuro- a,a, o x 3 Data 08/15/24 06:19 08/15/24 08:31 A&P Assessment and plan (1) Transaminitis: (2) GI bleed: (3) Acute hypokalemia: (4) Ketoacidosis: (5) High anion gap metabolic acidosis: (6) Alcoholic ketoacidosis: (7) Hypophosphatemia: (8) Acute anemia: (9) Diarrhea: (10) Acute kidney injury: Plan #Alcoholic ketoacidosis #Severe high anion gap metabolic acidosis most likely secondary to alcohol abuse #Acute kidney injury secondary to prerenal cause #Nausea vomiting diarrhea #Mildly elevated liver enzymes most likely secondary to alcohol use #Severely hemoconcentrated #Alcohol peripheral neuropathy #Not on any medications at home ? Patient presented with nausea vomiting diarrhea severe dehydration most likely secondary to alcohol binge drinking episode on the day absorbable. She is severely dehydrated at this time all labs are hemoconcentrated. She is tachypneic tachycardic and has severe anion gap metabolic acidosis. Denies drinking any other type of alcohol with alcohol mental alcohol at this time. She states she drank vodka. Patient denies being on any medications at home therefore euglycemic DKA unlikely. She does not have a history of diabetes ? Check serum osmolality to check for osmolar gap although unlikely high secondary to drinking vodka. ? Placed on bicarb drip with D5, ordered thiamine 100 IV push x 1 now ? Ordered thiamine 500 IV x 1 ? Placed on folic acid thiamine daily ? Placed on LR at 125 cc/h ? Check BMP, phosphorus, magnesium every 4 hours ? Patient at risk of refeeding syndrome and severe electrolyte imbalance ? At this time continue to hydrate patient and watch for electrolyte abnormalities and replete as needed ? Empirically placed on vancomycin and Zosyn ? Check CT chest abdomen pelvis to rule out other etiology however unlikely at this time ? Will check VBG in 4 hours ? At this time there is no acute indication for dialysis ? Consult nephrology. Appreciate recommendations ? Check CBC CMP mag phosphorus in a.m. ? Check c.diff, stool culture, ova parasite screen ? Check hemoglobin A1c ? Patient is not to be given any insulin at this time. 08/12/2024 - Continue folic acid and thiamine. - Continue LR and calcium carbonate. - Continue on Zosyn. Discontinued Vancomycin. - Serum osmolality pending. - Check BMP, phosphorus, magnesium every 4 hours - Chest X-ray showed stable chest without acute abnormality. - CT chest revealed multiple ground-glass opacities in the posterolateral lung bases which could reflect atelectasis or small airway infectious/inflammatory process including viral pneumonias. - CT Ab/Pelvis showed evidence of 1) Distended fluid-filled stomach, may indicate gastritis. 2) Cholelithiasis - EKG - sinus tachycardia - Blood culture pending - Drug screen pending - Patient is not to be given any insulin at this time. - Nephrology following. 08/13/2024 - Continue folic acid and thiamine. - Continue LR and calcium carbonate. - Continue on Zosyn. Start Vancomycin for bacteremia. - Monitor and replace electrolytes. Potassium 2.6 this morning from 3.5 yesterday (08/12) - TSH checked. 0.22 - Blood culture pending. - Drug screen positive marijuana. Ethlene glycol pending. - Patient is not to be given any insulin at this time. - Nephrology following. 08/14/2024 - Continue MVI, folate, thiamine. - Continue Zosyn. Will stop 08/15 to complete 5 days total. ?Blood cultures are negative to date. I will stop vancomycin at this time. Staph epidermidis on initial admission blood culture most likely thought to be a contaminant at this point. ? EGD colonoscopy planned today. ?Patient did receive 1 unit packed RBC yesterday for hemoglobin of 6.8. Repeat hemoglobin 9.0. It has been stable around 9.4 range since then. ? FOBT negative. ? No clear etiology of bleed or anemia at this time. 6.80 possibly lab error?. Patient's baseline 10/11 range?. Difficult to tell from previous trend of labs. Will continue to monitor hemoglobin at this time - Refeeding syndrome. Monitor potassium, magnesium and phosphorus. Replace electrolytes. - Replace vitamin d. - Nephrology following. ? I will stop IV fluids today. Anion gap is normalized. Patient is feeling better and tolerating GI soft diet at this point. -She did complain of mild shortness of breath after EGD colonoscopy today. When seen patient at bedside. Chest x-ray also reviewed. She states she has a history of asthma and uses an inhaler at home intermittently. I have ordered Acapella and incentive spirometer. Will order one-time DuoNeb. Lungs are clear to auscultation. Possibly atelectasis?. We will continue to monitor. Patient may transfer to floor at this time. Will transfer to [facility]. 08/15/2024 Still experiencing electrolyte abnormalities. Continue to replete. IV fluids restarted. ? Hemoglobin has been stable ? Creatinine 1.6. ISAURA. ? Will discuss with nephrology. ? Stop antibiotics at this time. Patient has completed course. ? Continue thiamine, folic acid ? Patient requesting to go home. Will discuss with nephrology at this time. ? Need outpatient follow-up with primary care nephrogram forward. PDMP PDMP Reviewed: Not Reviewed Attestations 2 Medical Necessity Statement*: Potential discharge home in a.m. Diagnoses Transaminitis R74.01 GI bleed K92.2 Acute hypokalemia E87.6 Ketoacidosis E87.29 High anion gap metabolic acidosis E87.29 Alcoholic ketoacidosis E87.29 Hypophosphatemia E83.39 Acute anemia D64.9 Diarrhea R19.7 Acute kidney injury N17.9
[2024-08-15 15:01] LABS: Anion Gap 18.9 (5-19); Blood Urea Nitrogen 5 mg/dL (6-20); Carbon Dioxide 19 mmol/L (22-29); Chloride 104 mmol/L (98-107); Glomerular Filtration Rate 36.7 mL/min (90-130); Glucose 120 mg/dL (65-115); Magnesium 1.9 mg/dL (1.7-2.3); Osmolality Calculated 284 mOsm/kg (285-295); Potassium 3.9 mmol/L (3.5-5.1); Sodium 138 mmol/L (136-145)
[2024-08-15] MEDS: potassium chloride oral liq 20 mEq/15 mL UDC PO (17:19)
[2024-08-15] MEDS: nicotine 21 mg Patch 1 PATCH TRANSDERMA (20:16)
[2024-08-15 20:48] LABS: Anion Gap 19.3 (5-19); Blood Urea Nitrogen 7 mg/dL (6-20); Carbon Dioxide 18 mmol/L (22-29); Chloride 110 mmol/L (98-107); Creatinine Clr Calc Pharmacy 35.2263; Glomerular Filtration Rate 34.2 mL/min (90-130); Glucose 111 mg/dL (65-115); Magnesium 1.8 mg/dL (1.7-2.3); Osmolality Calculated 295 mOsm/kg (285-295); Phosphorus 4.8 mg/dL (2.5-4.5); Potassium 4.3 mmol/L (3.5-5.1); Sodium 143 mmol/L (136-145)
[2024-08-16] VITALS (7 sets, daily range): BP systolic 115–136; BP diastolic 62–94; PULSE 68–97; RESP 15–17; TEMP 36.7–37; O2SAT 98–100
[2024-08-16] MEDS: lactated ringers 1,000 ML 100 ML IV ×2 (04:58→15:48)
[2024-08-16] MEDS: nicotine 4 mg lozenge MUCOUS MEM ×3 (08:27→23:40)
[2024-08-16] MEDS: folic acid 5 mg/ml MDV 10mL 1 MG IVP (08:27)
[2024-08-16] MEDS: thiamine 100 mg/mL 2mL SDV IVP (08:27)
[2024-08-16] MEDS: potassium chloride oral liq 20 mEq/15 mL UDC PO ×2 (08:27→17:31)
--- NOTE | 2024-08-16 10:29 | P.PN_ITS ---
Subjective 2 Subjective: seen and examined. no n/v/f/c/hackett/d. she wants to go home. Medications: Reviewed: Yes Medication Review Details: Current Medications Folic Acid (Folic Acid 5 Mg/Ml Mdv 10ml) 1 mg IVP DAILY [facility] Last Admin: 08/16/24 08:27 Dose: 1 mg Heparin Sodium (Porcine) (Heparin 5,000 Unit/Ml Inj 1 Ml) 5,000 unit SUBCUT Q12H [facility] Last Admin: 08/13/24 03:30 Dose: 5,000 unit Lactated Ringer's (Lactated Ringers) 1,000 mls @ 100 mls/hr IV .Q10H [facility] Last Admin: 08/16/24 04:58 Dose: 100 mls/hr Nicotine (Nicotine 21 Mg Patch) 1 patch TRANSDERMA Q24H [facility] Last Admin: 08/15/24 20:16 Dose: 1 patch Nicotine Polacrilex (Nicotine 4 Mg Lozenge) 4 mg MUCOUS MEM Q4H PRN PRN Reason: NICOTINE CRAVINGS Last Admin: 08/16/24 08:27 Dose: 4 mg Ondansetron HCl (Ondansetron 2 Mg/Ml Sdv 2 Ml) 4 mg IVP Q6H PRN PRN Reason: NAUSEA AND VOMITING Last Admin: 08/11/24 23:33 Dose: 4 mg Pantoprazole Sodium (Pantoprazole 40 Mg Sdv) 40 mg IVP Q12H [facility] Last Admin: 08/15/24 23:11 Dose: 40 mg Potassium Chloride (Potassium Chloride Oral Liq 20 Meq/15 Ml Udc) 20 meq PO BID [facility] Last Admin: 08/16/24 08:27 Dose: 20 meq Thiamine HCl (Thiamine 100 Mg/Ml 2ml Sdv) 100 mg IVP DAILY [facility] Last Admin: 08/16/24 08:27 Dose: 100 mg Vitals/I&O/Wt Last Vital Signs Temp 98.6 F 08/16/24 07:47 Pulse 74 08/16/24 07:47 Resp 15 08/16/24 07:47 BP 121/83 08/16/24 07:47 Pulse Ox 99 08/16/24 07:47 O2 Del Method Room Air 08/16/24 07:47 08/15/24 08/16/24 08/16/24 22:59 06:59 14:59 Intake Total 1373.333 / 2338.333 926.667 / 3265.000 120 / 120 Balance 1373.333 / 2338.333 926.667 / 3265.000 120 / 120 Weight last 48 hrs Weight 52.844 kg Weight 52.526 kg Weight 50.485 kg Physical Exam 2 Narrative: sitting up, comfortable. no resp distress VS noted Heent- nc/at, eomi, anicteric neck supple lungs clear heart -rrr, + s1, s2 abd soft, +bs ext no edema neuro- a,a, o x 3 Data 08/15/24 06:19 08/15/24 20:20 A&P Assessment and plan (1) Ketoacidosis: 33 year old female ETOH use, malnutrition, and depression. Pt drank sugnificant vodka on Saturday while watching the superbowl, last night she developed n/v/d. she now presents with: 1. inc AGMA of 46 with + ketoness- likely starvation ketoacidosis -please check serum osmolality- her calculated osmolality is 268 -anion gap has improved to 15 - if eating, can d/c ivf 2. electrolytes improving- give magnesium 1 gm ivf cont MVI 3.recurrent ISAURA- send urine electrolytes and u/a stat renal us- check for obstruction 4. tsh 0.22- assess for hyperthyroidism or if she is taking levothyroxine seen and examined w/ aid of a RN using A/V equipment pt consents to telemed visit and treatment Plan ewcurrent isaura- check labs and us PDMP PDMP Reviewed: Not Reviewed Attestations 2 Medical Necessity Statement*: isaura Time Spent in Patient Care: 16 - 35 minutes (>than 50% of time sp ent in counselling and/or direct pt care on unit) . Coding Level of Care Code Acute Code for Chg Fwd Diagnoses Ketoacidosis E87.29
--- NOTE | 2024-08-16 10:33 | USR_ITS ---
PROCEDURE INFORMATION: Exam: US Retroperitoneal, Complete, Kidneys and Bladder Exam date and time: 08/16/2024 1:08 PM Age: 33 years old Clinical indication: Condition or disease; Kidney or ureter condition; Other: Huseyin TECHNIQUE: Imaging protocol: Real-time ultrasound of the retroperitoneum with image documentation. Complete exam focused on the bilateral kidneys and urinary bladder. COMPARISON: 1[place] [id number] 08/11/2024 3:12 PM 2. US abdomen limited [id number] 01/08/2023 7:30 PM FINDINGS: Right kidney: No stones. No hydronephrosis. Left kidney: No stones. No hydronephrosis. Query small parapelvic midpole simple cyst 7 mm, not visualized on prior CT. Urinary bladder: Unremarkable. US/US renal BI* [id number] IMPRESSION: No acute findings.
[2024-08-16] MEDS: magnesium sulfate premix 1 GM/100 ML PIGGYBACK IV (10:47)
[2024-08-16] MEDS: pantoprazole 40 mg SDV IVP ×2 (11:58→23:10)
--- NOTE | 2024-08-16 15:02 | P.PN_ITS ---
Subjective 2 Subjective: Seen this morning. Creatinine is worsened to 1.7 and gap 19.3, CO2 18. Phosphorus 4.8. Stat renal ultrasound was ordered by nephrology. Results are pending at this time. Patient requesting to go home. Vitals/I&O/Wt Last Vital Signs Temp 98.6 F 08/16/24 07:47 Pulse 74 08/16/24 07:47 Resp 15 08/16/24 07:47 BP 121/83 08/16/24 07:47 Pulse Ox 99 08/16/24 07:47 O2 Del Method Room Air 08/16/24 07:47 08/16/24 08/16/24 08/16/24 06:59 14:59 22:59 Intake Total 926.667 / 3265.000 460 / 460 Balance 926.667 / 3265.000 460 / 460 Weight last 48 hrs Weight 52.844 kg Weight 52.526 kg Physical Exam 2 Narrative: sitting up, comfortable. no resp distress VS noted Heent- nc/at, eomi, anicteric neck supple lungs clear heart -rrr, + s1, s2 abd soft, +bs ext no edema neuro- a,a, o x 3 Data 08/15/24 06:19 08/15/24 20:20 Micro: Microbiology 08/11/24 14:36 Blood Culture - Final Blood NO GROWTH AFTER 5 DAYS A&P Assessment and plan (1) Transaminitis: (2) GI bleed: (3) Acute hypokalemia: (4) Ketoacidosis: (5) High anion gap metabolic acidosis: (6) Alcoholic ketoacidosis: (7) Hypophosphatemia: (8) Acute anemia: (9) Diarrhea: (10) Acute kidney injury: Plan #Alcoholic ketoacidosis #Severe high anion gap metabolic acidosis most likely secondary to alcohol abuse #Acute kidney injury secondary to prerenal cause #Nausea vomiting diarrhea #Mildly elevated liver enzymes most likely secondary to alcohol use #Severely hemoconcentrated #Alcohol peripheral neuropathy #Not on any medications at home ? Patient presented with nausea vomiting diarrhea severe dehydration most likely secondary to alcohol binge drinking episode on the day absorbable. She is severely dehydrated at this time all labs are hemoconcentrated. She is tachypneic tachycardic and has severe anion gap metabolic acidosis. Denies drinking any other type of alcohol with alcohol mental alcohol at this time. She states she drank vodka. Patient denies being on any medications at home therefore euglycemic DKA unlikely. She does not have a history of diabetes ? Check serum osmolality to check for osmolar gap although unlikely high secondary to drinking vodka. ? Placed on bicarb drip with D5, ordered thiamine 100 IV push x 1 now ? Ordered thiamine 500 IV x 1 ? Placed on folic acid thiamine daily ? Placed on LR at 125 cc/h ? Check BMP, phosphorus, magnesium every 4 hours ? Patient at risk of refeeding syndrome and severe electrolyte imbalance ? At this time continue to hydrate patient and watch for electrolyte abnormalities and replete as needed ? Empirically placed on vancomycin and Zosyn ? Check CT chest abdomen pelvis to rule out other etiology however unlikely at this time ? Will check VBG in 4 hours ? At this time there is no acute indication for dialysis ? Consult nephrology. Appreciate recommendations ? Check CBC CMP mag phosphorus in a.m. ? Check c.diff, stool culture, ova parasite screen ? Check hemoglobin A1c ? Patient is not to be given any insulin at this time. 08/12/2024 - Continue folic acid and thiamine. - Continue LR and calcium carbonate. - Continue on Zosyn. Discontinued Vancomycin. - Serum osmolality pending. - Check BMP, phosphorus, magnesium every 4 hours - Chest X-ray showed stable chest without acute abnormality. - CT chest revealed multiple ground-glass opacities in the posterolateral lung bases which could reflect atelectasis or small airway infectious/inflammatory process including viral pneumonias. - CT Ab/Pelvis showed evidence of 1) Distended fluid-filled stomach, may indicate gastritis. 2) Cholelithiasis - EKG - sinus tachycardia - Blood culture pending - Drug screen pending - Patient is not to be given any insulin at this time. - Nephrology following. 08/13/2024 - Continue folic acid and thiamine. - Continue LR and calcium carbonate. - Continue on Zosyn. Start Vancomycin for bacteremia. - Monitor and replace electrolytes. Potassium 2.6 this morning from 3.5 yesterday (08/12) - TSH checked. 0.22 - Blood culture pending. - Drug screen positive marijuana. Ethlene glycol pending. - Patient is not to be given any insulin at this time. - Nephrology following. 08/14/2024 - Continue MVI, folate, thiamine. - Continue Zosyn. Will stop 08/15 to complete 5 days total. ?Blood cultures are negative to date. I will stop vancomycin at this time. Staph epidermidis on initial admission blood culture most likely thought to be a contaminant at this point. ? EGD colonoscopy planned today. ?Patient did receive 1 unit packed RBC yesterday for hemoglobin of 6.8. Repeat hemoglobin 9.0. It has been stable around 9.4 range since then. ? FOBT negative. ? No clear etiology of bleed or anemia at this time. 6.80 possibly lab error?. Patient's baseline 10/11 range?. Difficult to tell from previous trend of labs. Will continue to monitor hemoglobin at this time - Refeeding syndrome. Monitor potassium, magnesium and phosphorus. Replace electrolytes. - Replace vitamin d. - Nephrology following. ? I will stop IV fluids today. Anion gap is normalized. Patient is feeling better and tolerating GI soft diet at this point. -She did complain of mild shortness of breath after EGD colonoscopy today. When seen patient at bedside. Chest x-ray also reviewed. She states she has a history of asthma and uses an inhaler at home intermittently. I have ordered Acapella and incentive spirometer. Will order one-time DuoNeb. Lungs are clear to auscultation. Possibly atelectasis?. We will continue to monitor. Patient may transfer to floor at this time. Will transfer to [facility]. 08/15/2024 Still experiencing electrolyte abnormalities. Continue to replete. IV fluids restarted. ? Hemoglobin has been stable ? Creatinine 1.6. ISAURA. ? Will discuss with nephrology. ? Stop antibiotics at this time. Patient has completed course. ? Continue thiamine, folic acid ? Patient requesting to go home. Will discuss with nephrology at this time. ? Need outpatient follow-up with primary care nephrogram forward. 08/16/2024 Patient would like to set up with PCP at discharge. She will need to follow-up with nephrology at discharge as well Creatinine 1.7 and worsening. Antibiotics have completed. Continue thiamine folic acid. Stat renal ultrasound ordered results are pending at this time. Will discuss with nephrology regarding management going forward. If cleared from nephro standpoint may consider discharge PDMP PDMP Reviewed: Not Reviewed Attestations 2 Medical Necessity Statement*: ISAURA, creatinine worsening Diagnoses Transaminitis R74.01 GI bleed K92.2 Acute hypokalemia E87.6 Ketoacidosis E87.29 High anion gap metabolic acidosis E87.29 Alcoholic ketoacidosis E87.29 Hypophosphatemia E83.39 Acute anemia D64.9 Diarrhea R19.7 Acute kidney injury N17.9
[2024-08-16] MEDS: ALPRAZolam 0.5 mg Tablet 0.125 MG PO (17:31)
[2024-08-16] MEDS: nicotine 21 mg Patch 1 PATCH TRANSDERMA (20:12)
[2024-08-16] MEDS: calcium carbonate 500 mg Chew Tablet 1000 MG PO (22:36)
[2024-08-17] MEDS: lactated ringers 1,000 ML 100 ML IV (01:08)
[2024-08-17 04:00] VITALS: BP 115/74; PULSE 78; RESP 17; TEMP 36.9; O2SAT 98
[2024-08-17 04:50] LABS: Alanine Aminotransferase 15 U/L (0-33); Albumin Level 3.3 g/dL (3.5-5.2); Alkaline Phosphatase 66 U/L (35-105); Anion Gap 19.1 (5-19); Aspartate Amino Transferase 16 U/L (0-32); Blood Urea Nitrogen 8 mg/dL (6-20); Calcium 9.3 mg/dL (8.5-10.5); Carbon Dioxide 18 mmol/L (22-29); Chloride 109 mmol/L (98-107); Creatinine Clr Calc Pharmacy 35.3191; Globulin 2.7 g/dL (1.3-4.6); Glomerular Filtration Rate 34.2 mL/min (90-130); Glucose 113 mg/dL (65-115); Magnesium 1.9 mg/dL (1.7-2.3); Osmolality Calculated 293 mOsm/kg (285-295); Phosphorus 4.4 mg/dL (2.5-4.5); Potassium 4.1 mmol/L (3.5-5.1); Sodium 142 mmol/L (136-145); Total Bilirubin 0.2 mg/dL (0.15-1.2)
[2024-08-17 05:27] VITALS: PULSE 59
[2024-08-17 07:38] VITALS: BP 138/83; PULSE 66; RESP 16; TEMP 36.8; O2SAT 98
--- NOTE | 2024-08-17 08:04 | P.PN_ITS ---
Subjective 2 Subjective: she feels well and wants to go home. denies n/v/f/c/hackett/d Medications: Reviewed: Yes Medication Review Details: Current Medications Calcium Carbonate (Calcium Carbonate 500 Mg Chew Tablet) 1,000 mg PO Q6H PRN PRN Reason: HEARTBURN Last Admin: 08/16/24 22:36 Dose: 1,000 mg Folic Acid (Folic Acid 5 Mg/Ml Mdv 10ml) 1 mg IVP DAILY [facility] Last Admin: 08/16/24 08:27 Dose: 1 mg Heparin Sodium (Porcine) (Heparin 5,000 Unit/Ml Inj 1 Ml) 5,000 unit SUBCUT Q12H [facility] Last Admin: 08/13/24 03:30 Dose: 5,000 unit Lactated Ringer's (Lactated Ringers) 1,000 mls @ 100 mls/hr IV .Q10H [facility] Last Admin: 08/17/24 01:08 Dose: 100 mls/hr Nicotine (Nicotine 21 Mg Patch) 1 patch TRANSDERMA Q24H [facility] Last Admin: 08/16/24 20:12 Dose: 1 patch Nicotine Polacrilex (Nicotine 4 Mg Lozenge) 4 mg MUCOUS MEM Q4H PRN PRN Reason: NICOTINE CRAVINGS Last Admin: 08/16/24 23:40 Dose: 4 mg Ondansetron HCl (Ondansetron 2 Mg/Ml Sdv 2 Ml) 4 mg IVP Q6H PRN PRN Reason: NAUSEA AND VOMITING Last Admin: 08/11/24 23:33 Dose: 4 mg Pantoprazole Sodium (Pantoprazole 40 Mg Sdv) 40 mg IVP Q12H [facility] Last Admin: 08/16/24 23:10 Dose: 40 mg Potassium Chloride (Potassium Chloride Oral Liq 20 Meq/15 Ml Udc) 20 meq PO BID [facility] Last Admin: 08/16/24 17:31 Dose: 20 meq Thiamine HCl (Thiamine 100 Mg/Ml 2ml Sdv) 100 mg IVP DAILY [facility] Last Admin: 08/16/24 08:27 Dose: 100 mg Vitals/I&O/Wt Last Vital Signs Temp 98.2 F 08/17/24 07:38 Pulse 66 08/17/24 07:38 Resp 16 08/17/24 07:38 BP 138/83 08/17/24 07:38 Pulse Ox 98 08/17/24 07:38 O2 Del Method Room Air 08/17/24 07:38 08/16/24 08/17/24 08/17/24 22:59 06:59 14:59 Intake Total 2099 933.333 / 3033.333 Balance 2099 933.333 / 3033.333 Weight last 48 hrs Weight 52.844 kg Physical Exam 2 Narrative: sitting up, comfortable. no resp distress VS noted Heent- nc/at, eomi, anicteric neck supple lungs clear heart -rrr, + s1, s2 abd soft, +bs ext no edema neuro- a,a, o x 3 Data 08/15/24 06:19 08/17/24 02:05 Micro: Microbiology 08/11/24 14:36 Blood Culture - Final Blood NO GROWTH AFTER 5 DAYS A&P Assessment and plan (1) Ketoacidosis: 33 year old female ETOH use, malnutrition, and depression. Pt drank sugnificant vodka on Saturday while watching the superbowl, last night she developed n/v/d. she now presents with: 1. inc AGMA of 46 with + ketoness- likely starvation ketoacidosis -please check serum osmolality- her calculated osmolality is 268 -anion gap has improved to 15 2. electrolytes improving- cont MVI 3.recurrent ISAURA- normal renal us -please chjeck ua. please d/c ppi- can cause AIN -may use H2 amber- such as pepcid/ famotifdine -renal okay w/ d/c- and please have her check her chemistreis with magnesium and phosphorus weekly and she needs outpt PMD and Renal f/u seen and examined w/ aid of a RN using A/V equipment pt consents to telemed visit and treatment Plan check urine studies PDMP PDMP Reviewed: Not Reviewed Attestations 2 Medical Necessity Statement*: per hospitalist. hopeful d/c soon Time Spent in Patient Care: 16 - 35 minutes (>than 50% of time sp ent in counselling and/or direct pt care on unit) . Coding Level of Care Code Acute Code for Chg Fwd Diagnoses Ketoacidosis E87.29
[2024-08-17] MEDS: potassium chloride oral liq 20 mEq/15 mL UDC PO (09:08)
[2024-08-17] MEDS: folic acid 5 mg/ml MDV 10mL 1 MG IVP (09:09)
[2024-08-17] MEDS: thiamine 100 mg/mL 2mL SDV IVP (09:09)
[2024-08-17 09:28] LABS: Bilirubin Urine Negative (Negative); Blood Urine Negative (Negative); Glucose Urine UA Negative (Normal); Ketones Urine Negative (Negative); Leukocyte Esterase Urine Negative (Negative); Nitrate Urine Negative (Negative); Protein Urine Negative (Negative); Specific Gravity, Urine 1.005 (1.005-1.030); Urine Appearance Clear (CLEAR); Urine Color Yellow (Yellow); Urobilinogen Urine 0.2 mg/dL (Negative)
[2024-08-17 09:33] LABS: Bacteria Urine None Seen /hpf; Hyaline Casts Urine 0-4 /lpf; RBC Urine 0-2 /hpf (0-2); Squamous Epithelial Cell Urine 0-5 /hpf (0-5); WBC Urine 0-5 /hpf (0-5)
[2024-08-17 09:44] LABS: Creatinine Urine, Random 18 mg/dL (28-217); Microalbumin Random Urine 2 ug/dL (0-20)
[2024-08-17 09:45] LABS: Urine Creatinine 18 mg/dL (28-217); Urine Protein Random 5 mg/dL
[2024-08-17 09:46] LABS: Microalbum Creatinine Ratio Ur 111 mg/dL (0-20)
[2024-08-17 11:22] VITALS: BP 133/83; PULSE 69; RESP 18; TEMP 36.7; O2SAT 100
[2024-08-17 14:00] VITALS: PULSE 70
[2024-08-17 16:09] VITALS: BP 133/83; PULSE 70; O2SAT 100
[2024-08-17 16:10] LABS: Osmolality Urine 488 mOsm/kg (50-1200)
[2024-08-17 16:15] LABS: Osmolality Serum 286 mOsm/kg (278-305)
--- NOTE | 2024-08-17 17:37 | PM.DCS ---
Discharge Providers Date of Admission: 08/11/24 14:14 Date of Discharge: August 17, 2024 Attending Provider at Admission: Tracy Dupree MD Attending Provider at Discharge: Carley De Leon MD Primary Care Provider: Briseida Sánchez Diagnoses at Discharge Discharge Diagnosis (1) Ketoacidosis: Status: Acute (2) Acute kidney injury: Status: Acute (3) High anion gap metabolic acidosis: Status: Acute (4) Alcoholic ketoacidosis: Status: Acute (5) Acute anemia: Status: Acute Reason for Visit Reason for Visit: FLU Like Brief History: 33 year old female with past medical history of alcohol abuse, kratom use, alcohol peripheral neuropathy who is present to the hospital with nausea vomiting and diarrhea. Patient had been binge drinking the day prior while watching Super Bowl. She had episodes of nonbloody nonbilious emesis. Patient has signs of severe dehydration, ketoacidosis, severe high anion gap of 5 0 upon arrival. She was placed on bicarb drip for hydration. CT of the chest showed multiple groundglass opacities in the posterior lateral lung base thought to represent of atelectasis versus viral pneumonitis. CT of the abdomen and pelvis showed a distended fluid-filled stomach indicative of gastritis and cholelithiasis without active signs of cholecystitis. Nephrology service was consulted, overall clinical impression that of starvation versus alcoholic ketoacidosis. She had hyponatremia upon admission which eventually resolved with IV hydration. She received empiric antibiotics with piperacillin/tazobactam and initially also vancomycin due to positive blood cultures with coagulase-negative Staphylococcus. Eventually this was deemed to be a contaminant and vancomycin was discontinued. She was noted to have severe anemia with hemoglobin down to 6.8. She underwent upper and lower GI endoscopy which was negative for any gross lesions. There were no signs of GI bleeding. Multivitamins folate electrolytes and thiamine were repleted during course of admission. Her creatinine upon admission was at 1.1, this improved back to normal until August 14, 2024. On August 15 she was noted to have again a rise of creatinine from 0.9-1.4. Over the past 2 days it has remained stable at 1.6. Exact etiology not known at this time. Renal ultrasound did not show any gross obstruction. Overall clinically patient is much improved compared to admission. She has been recommended to follow-up with her primary care physician which has been set up for her at the time of discharge. Incidentally. Patient also reported having had only intermittent spotting for the past 4 to 5 months. Beta-hCG was negative. Incidentally noted borderline low TSH at 0.22. May be related to acute illness. Recommend to repeat over the next 2 weeks 1 follow-up with primary care physician Iron and multivitamins have been added at the time of discharge. Follow-up provided with [facility] and PCP. Alcohol cessation counseling provided. Physical Exam Narrative: General: No acute distress, AO x3 HEENT: PERRLA, pupils bilaterally equal and reactive, pallors not present Chest: Normal vesicular breath sounds, no added sounds, equal good air entry bilaterally CVS: S1-S2 regular, no murmurs, no tachycardia, no gallops, no rubs Abdomen: Soft, nontender, no organomegaly, bowel sounds present Neuro: No focal deficits, no facial deformity, AO x3, power 5/5 in all limbs Discharge Data Studies Completed and Pending Completed Studies During Hospitalization Category Date Time Status CT chest abdomen pelvis [[place] [id number] Cat Scan 08/11/24 14:02 Completed ] Stat CXRP [XR chest 1V portable [id number]] Routine Exams 08/12/24 07:49 Completed XR chest 1V [id number] Stat Exams 08/14/24 13:53 Completed XR chest 1V portable [id number] Stat Exams 08/11/24 11:42 Completed US renal BI* [id number] Stat Ultrasound 08/16/24 10:33 Completed Pending at discharge Category Date Time Status Blood Culture Stat Lab 08/11/24 14:36 Results Blood Culture Stat Lab 08/12/24 18:03 Results Radiology Impressions Chest/Abdomen/Pelvis CT 08/11/24 14:02 IMPRESSION: Multiple ground-glass opacities in the posterolateral lung bases which could reflect atelectasis or small airway infectious/inflammatory process including viral pneumonias. IMPRESSION: 1. Distended fluid-filled stomach, may indicate gastritis. 2. Cholelithiasis. Chest X-Ray 08/14/24 13:53 IMPRESSION: Stable chest without acute abnormality. Renal Ultrasound 08/16/24 10:33 IMPRESSION: No acute findings. Laboratory Results WBC 6.14 10^3/uL (3.29-11.43) 08/15/24 06:19 RBC 3.06 10^6/uL (3.85-5.65) L 08/15/24 06:19 Hgb 9.70 g/dL (11.27-16.99) L 08/15/24 06:19 Hct 29.5 % (36-47) L 08/15/24 06:19 MCV 96.4 fl (85-98) 08/15/24 06:19 MCH 31.7 pg (27-33) 08/15/24 06:19 MCHC 32.9 g/dL (30-55) 08/15/24 06:19 RDW 16.7 % (12.1-15.1) H 08/15/24 06:19 Plt Count 128 10^3/cmm (157-399) L 08/15/24 06:19 MPV 9.4 fL (7.4-10.4) 08/15/24 06:19 Neut % (Auto) 60.3 % 08/15/24 06:19 Lymph % (Auto) 25.1 % 08/15/24 06:19 [place] % (Auto) 12.9 % 08/15/24 06:19 Eos % (Auto) 0.7 % 08/15/24 06:19 Baso % (Auto) 0.5 % 08/15/24 06:19 Neut # (Auto) 3.71 10^3/uL (1.8-7.7) 08/15/24 06:19 Lymph # (Auto) 1.5 10^3/uL (0.8-4.8) 08/15/24 06:19 [place] # (Auto) 0.8 10^3/uL (0.2-0.9) 08/15/24 06:19 Eos # (Auto) 0.0 10^3/uL (0.0-0.8) 08/15/24 06:19 Baso # (Auto) 0.0 10^3/uL (0.0-0.1) 08/15/24 06:19 Nucleated RBC % (auto) 0 % 08/15/24 06:19 Nucleated RBCs # 0.0 /100WBC 08/15/24 06:19 Specimen Type Arterial 08/12/24 04:40 Sample Site Radial, right 08/12/24 04:40 ABG pH 7.23 (7.35-7.45) L 08/12/24 04:40 ABG pCO2 27.1 mmHg (35-45) L 08/12/24 04:40 ABG pO2 97.7 mmHg (80.0-100.0) 08/12/24 04:40 ABG PO2/FiO2 Ratio 465 08/12/24 04:40 ABG HCO3 11.4 mmol/L (22-26) L 08/12/24 04:40 ABG O2 Saturation 98.3 08/11/24 13:29 ABG Base Excess -14.7 mmol/L (-2.0-2.0) L 08/12/24 04:40 [place] Test Pos 08/12/24 04:40 VBG pH 7.10 (7.32-7.42) L* 08/11/24 22:55 VBG pCO2 20.0 mmHg (41-51) L 08/11/24 22:55 VBG pO2 97.3 mmHg (25-40) H 08/11/24 22:55 VBG HCO3 6.1 mmol/L (24-28) L 08/11/24 22:55 VBG Base Excess -21.8 mmol/L (-3.0-3.0) L 08/11/24 22:55 VBG Hematocrit 31.5 % (37-47) L 08/11/24 22:55 A-a O2 Gradient Not Reportable 08/11/24 13:29 Hematocrit 30.3 % (37-47) L 08/12/24 04:40 Hgb O2 Saturation 96.2 % (95-100) 08/11/24 13:29 Carboxyhemoglobin 1.3 %THgb (0.4-20.1) 08/11/24 13:29 Methemoglobin 0.9 % (0.4-1.5) 08/11/24 13:29 Total Hemoglobin 11.4 g/dL (12-16) L 08/11/24 13:29 Sodium 132.0 mmol/L (131-143) 08/11/24 13:29 Potassium 4.1 mmol/L (3.5-5.0) 08/11/24 13:29 Glucose 169.0 mg/dL (70-115) H 08/11/24 13:29 Ionized Calcium 1.1 mmol/L (1.1-1.4) 08/11/24 13:29 O2 Delivery Device Room air 08/12/24 04:40 FiO2 21.0 % 08/12/24 04:40 Tidal Volume 0.55 08/12/24 04:40 PEEP 12.0 cmH20 08/12/24 04:40 Acidity Tester ID Jdb 08/12/24 04:40 Sodium 142 mmol/L (136-145) 08/17/24 02:05 Potassium 4.1 mmol/L (3.5-5.1) 08/17/24 02:05 Chloride 109 mmol/L (98-107) H 08/17/24 02:05 Carbon Dioxide 18 mmol/L (22-29) L 08/17/24 02:05 Anion Gap 19.1 (5-19) H 08/17/24 02:05 BUN 8 mg/dL (6-20) 08/17/24 02:05 Creatinine 1.7 mg/dL (0.5-0.9) H 08/17/24 02:05 GFR Calculation 34.2 mL/min (90-130) L 08/17/24 02:05 Glucose 113 mg/dL (65-115) 08/17/24 02:05 Specific [place] Not Reportable 08/11/24 12:33 Serum Osmolality 286 mOsm/kg (278-305) 08/12/24 04:50 Calculated Osmolality 293 mOsm/kg (285-295) 08/17/24 02:05 Lactic Acid 1.5 mmol/L (0.5-2.2) 08/11/24 12:08 Lactate 0.6 mmol/L (0.5-2.2) 08/12/24 04:50 Calcium 9.3 mg/dL (8.5-10.5) 08/17/24 02:05 Phosphorus 4.4 mg/dL (2.5-4.5) 08/17/24 02:05 Magnesium 1.9 mg/dL (1.7-2.3) 08/17/24 02:05 Iron 60 ug/dL (37-145) 08/13/24 11:29 TIBC 163 mcg/dl 08/13/24 11:29 % Saturation 36.8 % (20-50) 08/13/24 11:29 Unsat Iron Binding 103 ug/dL (112-347) L 08/13/24 11:29 Ferritin 316 ng/mL (15-150) H 08/13/24 11:29 Total Bilirubin 0.2 mg/dL (0.15-1.2) 08/17/24 02:05 AST 16 U/L (0-32) 08/17/24 02:05 ALT 15 U/L (0-33) 08/17/24 02:05 Alkaline Phosphatase 66 U/L (35-105) 08/17/24 02:05 Creatine Kinase 90 U/L (26-192) 08/12/24 10:32 Troponin T Baseline < 6 ng/L (0-10) 08/11/24 12:08 Troponin T 120 Minute 6.00 ng/L (0-10) 08/11/24 14:36 Delta Troponin T 0.73719 ABS# (0-10) 08/11/24 14:36 Troponin T Hi Sens 6Hr 6.00 ng/L (0-10) 08/11/24 18:14 Troponin T Hi Sens 6Hr Delta 0.34555 ng/L (0-12) 08/11/24 18:14 Total Protein 6.0 g/dL (6.6-8.7) L 08/17/24 02:05 Albumin 3.3 g/dL (3.5-5.2) L 08/17/24 02:05 Globulin 2.7 g/dL (1.3-4.6) 08/17/24 02:05 Lipase 30 U/L (13-60) 08/11/24 12:08 25-OH Vitamin D Total 6 ng/mL (30-100) L 08/12/24 10:32 TSH 0.22 uIU/mL (0.27-4.20) L 08/12/24 10:32 HCG, Qual Negative (Negative) 08/12/24 04:50 Urine Color Yellow (Yellow) 08/17/24 09:07 Urine Appearance Clear (CLEAR) 08/17/24 09:07 Urine pH 6.0 (5-7) 08/17/24 09:07 Ur Specific [place] 1.005 (1.005-1.030) 08/17/24 09:07 Urine Protein Negative (Negative) 08/17/24 09:07 Urine Glucose (UA) Negative (Normal) 08/17/24 09:07 Urine Ketones Negative (Negative) 08/17/24 09:07 Urine Blood Negative (Negative) 08/17/24 09:07 Urine Nitrate Negative (Negative) 08/17/24 09:07 Urine Bilirubin Negative (Negative) 08/17/24 09:07 Urine Urobilinogen 0.2 mg/dL (Negative) 08/17/24 09:07 Ur Leukocyte Esterase Negative (Negative) 08/17/24 09:07 Urine RBC 0-2 /hpf (0-2) 08/17/24 09:07 Urine WBC 0-5 /hpf (0-5) 08/17/24 09:07 Ur Squamous Epith Cells 0-5 /hpf (0-5) 08/17/24 09:07 Amorphous Sediment Not Reportable 08/17/24 09:07 Urine Bacteria None seen /hpf (NONE) 08/17/24 09:07 Hyaline Casts 0-4 /lpf H 08/17/24 09:07 Urine Osmolality 488 mOsm/kg (50-1200) 08/11/24 12:33 Ur Random Microalbumin 2 ug/dL (0-20) 08/17/24 09:07 U Random Total Protein 5 mg/dL 08/17/24 09:07 Ur Random Sodium 79 mmol/L 08/11/24 12:33 Ur Random Potassium 62 mmol/L 08/11/24 12:33 Ur Random Chloride 15 mmol/L 08/11/24 12:33 Urine Creatinine 18 mg/dL (28-217) L 08/17/24 09:07 Urine Creatinine 18 mg/dL (28-217) L 08/17/24 09:07 Microalb/Creat Ratio 111 mg/dL (0-20) H 08/17/24 09:07 Urine Oxidant Negative mcg/mL (<200) 08/11/24 12:33 Vancomycin Trough 19.9 ug/mL (10-15) H 08/14/24 14:14 Salicylates < 0.3 mg/dL (3-10) L 08/11/24 12:08 Urine Opiates Screen Negative ng/mL (Negative) 08/11/24 12:33 Urine Opiates Level Negative ng/mL (<100) 08/11/24 12:33 Urine Oxycodone Negative ng/mL (<100) 08/11/24 12:33 U Methadone Metabolites Negative ng/mL (<100) 08/11/24 12:33 Barbiturates Negative ng/mL (<300) 08/11/24 12:33 Ur Barbiturates Screen Negative ng/mL (Negative) 08/11/24 12:33 Phencyclidine (PCP) Negative ng/mL (<25) 08/11/24 12:33 Ur Phencyclidine Scrn Negative ng/mL (Negative) 08/11/24 12:33 Amphetamines Negative ng/mL (<500) 08/11/24 12:33 Ur Amphetamines Screen Negative ng/mL (Negative) 08/11/24 12:33 Benzodiazepines Negative ng/mL (<100) 08/11/24 12:33 U Benzodiazepines Scrn Negative ng/mL (Negative) 08/11/24 12:33 Cocaine Metabolite Negative ng/mL (<150) 08/11/24 12:33 Urine Cocaine Screen Negative ng/mL (Negative) 08/11/24 12:33 U Marijuana (THC) Screen Positive ng/mL (Negative) H 08/11/24 12:33 U Marijuana Metabolites Positive ng/mL (<20) A 08/11/24 12:33 Abn Spec Valid Drug Scn Not Reportable 08/11/24 12:33 Urine Drug Screen Note See note 08/11/24 12:33 Ethylene Glycol <10.0 mg/L () 08/11/24 12:08 Ethyl Alcohol < 10 mg/dL (0-10) 08/11/24 12:08 Serum Ketones Positive (Negative) H 08/12/24 04:50 Coronavirus (PCR) Negative (Negative) 08/11/24 11:40 Influenza A (PCR) Negative (Negative) 08/11/24 11:40 Influenza Type B (PCR) Negative (Negative) 08/11/24 11:40 RSV (PCR) Negative (Negative) 08/11/24 11:40 Blood Type O Positive 08/12/24 11:17 Rho(D) Type Rh positive 08/12/24 11:17 Antibody Screen Negative 08/12/24 11:17 Crossmatch See Detail 08/12/24 11:17 Vitals Last Vital Signs Temp 98.1 F 08/17/24 11:22 Pulse 70 08/17/24 16:09 Resp 18 08/17/24 11:22 BP 133/83 08/17/24 16:09 Pulse Ox 100 08/17/24 16:09 O2 Del Method Room Air 08/17/24 11:22 Discharge Plan Discharge Patient Disposition: Home Condition: Stable Prescriptions: New thiamine HCl (vitamin B1) 100 mg tablet 100 mg PO DAILY 30 Days Qty: 30 0RF ferrous fumarate 324 mg (106 mg iron) tablet 324 mg PO DAILY Qty: 30 0RF multivitamin Tablet 1 tab PO DAILY Qty: 30 0RF Discharge Orders: Discharge Order (Routine); Ordered 08/17/24 Ordered By: Carley De Leon Other Ambulatory Orders: Basic Metabolic Panel (Routine) Timeframe: 1 Day Facility: [facility] - Location: Lab - Main Lab Ordered By: Tracy Dupree Complete Blood Count w/Auto (Routine) Timeframe: 1 Day Location: Determined by Patient Ordered By: Tracy Dupree Referrals: Mallorie Syed DO [Physician] - 09/07/24 9:00 am Norberto Stuart MD [Physician] - (abnormal uterine bleeding) Patient Instructions: Iron Supplements (By mouth), Thiamine (By mouth), Multivitamins, Adult Formula (By mouth), GI Post Discharge Instructions w/ Anesthesia, Opioid Safety Discharge Attestations Time Spent in Discharge Care*: greater than 30 min Quality Metrics Clinical Quality Measures [ No reported AMI, CVA or VTE this stay] Coding Level of Care Code Acute Code for Chg Fwd Diagnoses Ketoacidosis E87.29 Acute kidney injury N17.9 High anion gap metabolic acidosis E87.29 Alcoholic ketoacidosis E87.29 Acute anemia D64.9
== END 2024-08-17 16:11 | disposition home or self-care (01) | DRG 682 ==
LOC: ER 13:23 → ICU 14:15 → MEDSURG 08-15 00:58
PROVIDERS: Internal Medicine Nephrology; Student in an Organized Health Care Education/Training Program; Admitting Provider Internal Medicine; Emergency Provider Physician Assistant; PCP Physician Assistant; Visit Provider Student in an Organized Health Care Education/Training Program
PROC: 0DJ08ZZ Inspection of Upper Intestinal Tract, Via Natural or Artificial Opening Endoscopic (ICD-10-PCS; principal; 2024-08-14 13:00)
PROC: 0DJD8ZZ Inspection of Lower Intestinal Tract, Via Natural or Artificial Opening Endoscopic (ICD-10-PCS; CPT 45378; 2024-08-14 13:00)
DX: N17.9 Acute kidney failure, unspecified (principal); J12.9 Viral pneumonia, unspecified; E87.29 Other acidosis; E46 Unspecified protein-calorie malnutrition; J98.11 Atelectasis; E87.1 Hypo-osmolality and hyponatremia; R74.01 Elevation of levels of liver transaminase levels; R19.7 Diarrhea, unspecified; G62.1 Alcoholic polyneuropathy; Z88.8 Allergy status to other drugs, medicaments and biological substances; F17.210 Nicotine dependence, cigarettes, uncomplicated; R00.0 Tachycardia, unspecified; Z68.22 Body mass index [BMI] 22.0-22.9, adult; F32.A Depression, unspecified; E86.0 Dehydration; F10.10 Alcohol abuse, uncomplicated; E83.39 Other disorders of phosphorus metabolism; D64.9 Anemia, unspecified; J45.909 Unspecified asthma, uncomplicated; Z11.52 Encounter for screening for COVID-19; E87.6 Hypokalemia
CPT/HCPCS: 36415; 36430; 36573; 36592; 36600; 43235; 45378; 71045; 71250; 74176; 76770; 80048; 80051; 80053; 80202; 80306; 80307; 81001; 82009; 82044; 82274; 82306; 82330; 82436; 82550; 82570; 82693; 82728; 82803; 82805; 83540; 83550; 83605; 83690; 83735; 83930; 83935; 84100; 84132; 84133; 84156; 84300; 84443; 84484; 84703; 85025; 86850; 86900; 86920; 87040; 87077; 87150; 87186; 87205; 87637; 93005; 94640; 96365; 96367; 96372; 96375; 96376; 99285; J1644; J2270; J2405; J2470; J2543; J2704; J3370; J3372; J3411; J3475; J3480; J3490; J7030; J7040; J7050; J7070; J7120; P9016; Q3014